=== PATIENT | male | born 1965 | race Caucasian/White ===

== ENCOUNTER 2016-06-02 10:06 | Inpatient (IN) | payer SELFPAY ==
[~2016-06-02] VITALS: Ht 170.2 cm; Wt 75.1 kg
[~2016-06-02 10:06] MED LIST: FLUO20CA19 PO; IBUP400T PO; TRAM300T9 PO; TRAM50TA2 PO
[2016-06-02 11:36] LABS: BLOOD UREA NITROGEN 19 mg/dL (7-18)
[2016-06-02 11:45] LABS: ACETAMINOPHEN < 3 mcg/mL (10-30)
[2016-06-02 11:50] LABS: DAU SCREEN DISCLAIMER
[2016-06-02] MEDS ORDERED: ONDANSETRON ODT 4 MG PO PRN (14:00)
[2016-06-02] MEDS ORDERED: ZIPRASIDONE 20MG CAPSULE PO PRN (14:00)
[2016-06-02] MEDS ORDERED: ZIPRASIDONE 20 MG INJ IM PRN (14:00)
[2016-06-03 23:20] VITALS: BP 117/69
[2016-06-04 03:18] VITALS: BP 113/76
[2016-06-04 07:25] VITALS: BP 125/85
[2016-06-04 13:25] VITALS: BP 139/85
[2016-06-04 18:20] VITALS: BP 117/78
[2016-06-05 00:40] VITALS: BP 108/71
[2016-06-05 08:24] VITALS: BP 112/76
[2016-06-05] MEDS: ACETAMINOPHEN 325 MG TABLET PO PRN ×3 (09:45→19:53)
[2016-06-05 13:05] VITALS: BP 118/83
[2016-06-05] MEDS ORDERED: POLYETHYLENE GLYCOL 17 GM PACKET PO PRN (16:00)
[2016-06-05] MEDS: DOCUSATE 100 MG CAPSULE PO PRN (16:06)
[2016-06-05 19:20] VITALS: BP 138/91
[2016-06-06 02:19] VITALS: BP 110/73
[2016-06-06 06:59] VITALS: BP 106/71
[2016-06-06 13:40] VITALS: BP 117/79
[2016-06-06] MEDS: ACETAMINOPHEN 325 MG TABLET PO PRN (15:49)
[2016-06-06 19:32] VITALS: BP 121/79
[2016-06-07 02:10] VITALS: BP 119/79
[2016-06-07 07:15] LABS: BLOOD UREA NITROGEN 18 mg/dL (7-18)
[2016-06-07 07:47] VITALS: BP 110/75
[2016-06-07] MEDS: ACETAMINOPHEN 325 MG TABLET PO PRN (09:16)
[2016-06-07 13:51] VITALS: BP 109/61
[2016-06-07] MEDS: ENOXAPARIN 40 MG/0.4 ML SQ SCH (15:18)
[2016-06-07 19:15] VITALS: BP 107/68
[2016-06-08 01:24] VITALS: BP 107/60
[2016-06-08 07:06] VITALS: BP 109/73
[2016-06-08] MEDS: ENOXAPARIN 40 MG/0.4 ML SQ SCH (15:30)
[2016-06-08 15:58] VITALS: BP 101/67
[2016-06-08 19:28] VITALS: BP 120/86
[2016-06-09 01:38] VITALS: BP 103/68
[2016-06-09 06:35] VITALS: BP 107/72
[2016-06-09] MEDS: ACETAMINOPHEN 325 MG TABLET PO PRN (08:41)
[2016-06-09 15:10] VITALS: BP 110/76
[2016-06-09] MEDS: ENOXAPARIN 40 MG/0.4 ML SQ SCH (15:32)
[2016-06-09 19:40] VITALS: BP 109/69
[2016-06-09] MEDS ORDERED: RISPERIDONE 1 MG TABLET PO SCH (21:00)
[2016-06-10 01:50] VITALS: BP 112/73
[2016-06-10 07:25] VITALS: BP 101/70
[2016-06-10 12:52] VITALS: BP 103/74
[2016-06-10] MEDS: ENOXAPARIN 40 MG/0.4 ML SQ SCH (15:35)
[2016-06-10] MEDS: RISPERIDONE 2 MG TABLET PO SCH (20:13)
[2016-06-10 20:26] VITALS: BP 101/66
[2016-06-11 03:52] VITALS: BP 108/68
[2016-06-11 05:35] LABS: BLOOD UREA NITROGEN 13 mg/dL (7-18)
[2016-06-11 07:56] VITALS: BP 106/73
[2016-06-11 13:01] VITALS: BP 99/66
[2016-06-11] MEDS: ENOXAPARIN 40 MG/0.4 ML SQ SCH (15:11)
[2016-06-11 19:10] VITALS: BP 104/71
[2016-06-11] MEDS: DOCUSATE 100 MG CAPSULE PO PRN (20:01)
[2016-06-11] MEDS: RISPERIDONE 2 MG TABLET PO SCH (20:01)
[2016-06-12 02:27] VITALS: BP 103/83
[2016-06-12 06:35] VITALS: BP 111/75
[2016-06-12 13:13] VITALS: BP 135/88
[2016-06-12] MEDS: ENOXAPARIN 40 MG/0.4 ML SQ SCH (15:40)
[2016-06-12 18:31] VITALS: BP 132/88
[2016-06-12] MEDS: RISPERIDONE 2 MG TABLET PO SCH (20:19)
[2016-06-13 01:38] VITALS: BP 108/76
[2016-06-13] MEDS: ACETAMINOPHEN 325 MG TABLET PO PRN (07:38)
[2016-06-13 08:04] VITALS: BP 103/64
[2016-06-13 12:01] VITALS: BP 115/78
[2016-06-13] MEDS: ENOXAPARIN 40 MG/0.4 ML SQ SCH (15:00)
[2016-06-13 19:53] VITALS: BP 115/79
[2016-06-13] MEDS: RISPERIDONE 2 MG TABLET PO SCH (20:04)
[2016-06-14 01:05] VITALS: BP 104/59
[2016-06-14 08:14] VITALS: BP 105/72
[2016-06-14 14:01] VITALS: BP 116/82
[2016-06-14] MEDS: ENOXAPARIN 40 MG/0.4 ML SQ SCH (15:35)
[2016-06-14] MEDS ORDERED: ZIPRASIDONE 20 MG INJ IM PRN (18:00)
[2016-06-14 18:18] VITALS: BP 113/76
[2016-06-14] MEDS: RISPERIDONE 1 MG TABLET PO SCH (20:53)
[2016-06-15 03:54] VITALS: BP 111/68
[2016-06-15 06:30] VITALS: BP 113/75
[2016-06-15 14:07] VITALS: BP 113/80
[2016-06-15] MEDS: ENOXAPARIN 40 MG/0.4 ML SQ SCH (15:27)
[2016-06-15 20:05] VITALS: BP 112/72
[2016-06-15] MEDS: RISPERIDONE 1 MG TABLET PO SCH (20:08)
[2016-06-16 05:41] VITALS: BP 100/66
[2016-06-16 06:33] VITALS: BP 103/71
[2016-06-16] MEDS ORDERED: LORazepam 1MG TABLET PO PRN (09:00)
[2016-06-16 14:13] VITALS: BP 108/70
[2016-06-16] MEDS: ENOXAPARIN 40 MG/0.4 ML SQ SCH (16:14)
[2016-06-16] MEDS: RISPERIDONE 1 MG TABLET PO SCH (19:22)
[2016-06-16 20:55] VITALS: BP 108/74
[2016-06-17 04:54] VITALS: BP 100/66
[2016-06-17 05:17] LABS: BLOOD UREA NITROGEN 16 mg/dL (7-18)
[2016-06-17 08:16] VITALS: BP 103/70
[2016-06-17 14:02] VITALS: BP 119/76
[2016-06-17] MEDS: ENOXAPARIN 40 MG/0.4 ML SQ SCH (15:54)
[2016-06-17 19:00] VITALS: BP 119/88
[2016-06-17] MEDS: RISPERIDONE 1 MG TABLET PO SCH (19:59)
[2016-06-18 04:04] VITALS: BP 101/68
[2016-06-18 07:32] VITALS: BP 104/70
[2016-06-18] MEDS: ACETAMINOPHEN 325 MG TABLET PO PRN (08:34)
[2016-06-18 13:05] VITALS: BP 109/68
[2016-06-18] MEDS: ENOXAPARIN 40 MG/0.4 ML SQ SCH (15:09)
[2016-06-18 18:48] VITALS: BP 119/76
[2016-06-18] MEDS: RISPERIDONE 1 MG TABLET PO SCH (20:24)
[2016-06-19 01:20] VITALS: BP 97/62
[2016-06-19 07:47] VITALS: BP 100/65
[2016-06-19] MEDS: ENOXAPARIN 40 MG/0.4 ML SQ SCH (15:00)
[2016-06-19 15:05] VITALS: BP 104/70
[2016-06-19] MEDS ORDERED: HYDR25TA11 PO (15:55)
[2016-06-19] MEDS ORDERED: RISP1TAB45 PO (15:55)
== END 2016-06-19 16:28 | disposition home or self-care (01) | DRG 885 ==
LOC: ED 10:45 → OBSVTOIN 13:09 → EDIP 13:09 → 3NE 06-03 22:56
PROVIDERS: ADMIT Internal Medicine; ATTEND Internal Medicine
DX: F20.9 Schizophrenia, unspecified (principal); E43 Unspecified severe protein-calorie malnutrition; G81.94 Hemiplegia, unspecified affecting left nondominant side; T14.91 Suicide attempt; F10.10 Alcohol abuse, uncomplicated; Z87.820 Personal history of traumatic brain injury; F14.10 Cocaine abuse, uncomplicated; F90.9 Attention-deficit hyperactivity disorder, unspecified type; F15.90 Other stimulant use, unspecified, uncomplicated; Z81.8 Family history of other mental and behavioral disorders; F32.9 Major depressive disorder, single episode, unspecified; Z59.0 Homelessness; Y92.410 Unspecified street and highway as the place of occurrence of the external cause; Y99.8 Other external cause status; Y93.89 Activity, other specified; Z68.25 Body mass index [BMI] 25.0-25.9, adult
CPT/HCPCS: 36415; 80048; 80307; 80329; 82040; 85025; J1650; J3486; G0480; Q0177

== ENCOUNTER 2016-07-27 07:32 | Inpatient (IN) | payer MEDICARE, MEDICAID ==
[~2016-07-27] VITALS: Ht 170.2 cm; Wt 87.0 kg
[~2016-07-27 07:32] MED LIST changes: +HYDR25TA11 PO; +RISP1TAB45 PO
[2016-07-27] MEDS ORDERED: SODIUM CHLORIDE 0.9% 1,000 ML IV ONE (07:47)
[2016-07-27] MEDS ORDERED: SODIUM CHLORIDE 0.9% 1,000ML IVBOLUS ONE (08:00)
[2016-07-27] MEDS ORDERED: AMPICILLIN/SULBACTAM 3 GM in SODIUM CHLORIDE 0.9% 100 ML IVPB ONE (08:00)
[2016-07-27] MEDS ORDERED: MORPHINE SULFATE 4 MG/ML, 1ML ONE (08:18)
[2016-07-27] MEDS ORDERED: ONDANSETRON 2MG/ML, 2ML ONE (08:21)
[2016-07-27 08:30] LABS: BLOOD UREA NITROGEN 8 mg/dL (7-18)
[2016-07-27] MEDS ORDERED: ONDANSETRON 2MG/ML, 2ML IVPush ONE (08:30)
[2016-07-27] MEDS ORDERED: MORPHINE SULFATE 4 MG/ML, 1ML IVPush PRN (08:30)
[2016-07-27] MEDS ORDERED: CEFTAROLINE 600 MG in SODIUM CHLORIDE 0.9% 100 ML IV ONE (08:30)
[2016-07-27] MEDS ORDERED: AZITHROMYCIN 250 MG TABLET ONE (09:48)
[2016-07-27] MEDS ORDERED: POTASSIUM CHLORIDE 20 MEQ TAB.ER.PRT PO ONE ×2 (10:00→15:00)
[2016-07-27] MEDS ORDERED: AZITHROMYCIN 500 MG TABLET PO ONE (10:00)
[2016-07-27] MEDS ORDERED: POTASSIUM CHLORIDE 20 MEQ TAB.ER.PRT ONE (10:16)
[2016-07-27] MEDS ORDERED: ENALAPRILAT 1.25 MG/ML, 2ML IVPush PRN (14:30)
[2016-07-27] MEDS ORDERED: ACETAMINOPHEN 325 MG TABLET PO PRN (14:30)
[2016-07-27] MEDS: ENOXAPARIN 40 MG/0.4 ML SQ SCH (14:30)
[2016-07-27] MEDS ORDERED: ONDANSETRON 2MG/ML, 2ML IVPush PRN (14:30)
[2016-07-27] MEDS ORDERED: POLYETHYLENE GLYCOL 17 GM PACKET PO PRN (14:30)
[2016-07-27] MEDS ORDERED: LABETALOL 5MG/ML, 20ML IVPush PRN (14:30)
[2016-07-27] MEDS ORDERED: BISACODYL 10 MG SUPP PR PRN (14:30)
[2016-07-27] MEDS ORDERED: VANCOMYCIN PMX 1GM/200ML 200 ML IV SCH (15:00)
[2016-07-27] MEDS ORDERED: PHARMACOKINETIC MONITORING MC PRN (15:00)
[2016-07-27] MEDS ORDERED: VANCOMYCIN PER PHARMACY MC PRN (15:00)
[2016-07-27] MEDS ORDERED: PHARMACOKINETIC CONSULTATION MC ONE (15:00)
[2016-07-27] MEDS ORDERED: CALAMINE LOTION 180ML TP PRN (15:00)
[2016-07-27] MEDS: SODIUM CHLORIDE 0.9% 1,000 ML IV SCH (16:11)
[2016-07-27] MEDS: PIPERACILLIN/TAZO 3.375 GM in SODIUM CHLORIDE 0.9% 50 ML IV SCH ×2 (16:12→21:27)
[2016-07-27] MEDS: LORazepam 2 MG/ML, 1ML IVPush PRN (16:36)
[2016-07-27] MEDS: OXYcodone/APAP 5/325MG TABLET PO PRN (16:36)
[2016-07-27] MEDS: VANCOMYCIN PMX 1GM/200ML 200 ML IV SCH (17:31)
[2016-07-27] MEDS ORDERED: MUPIROCIN OINT 2%, 22GM TP SCH (18:00)
[2016-07-27 20:25] VITALS: BP 116/82
[2016-07-27] MEDS: RISPERIDONE 1 MG TABLET PO SCH (21:27)
[2016-07-27] MEDS: SILVER SULF. CRM 1%, 400GM TP SCH (22:44)
[2016-07-28] MEDS: SODIUM CHLORIDE 0.9% 1,000 ML IV SCH ×2 (00:59→08:46)
[2016-07-28 02:00] VITALS: BP 123/79
[2016-07-28] MEDS: PIPERACILLIN/TAZO 3.375 GM in SODIUM CHLORIDE 0.9% 50 ML IV SCH ×3 (03:25→15:09)
[2016-07-28] MEDS: morphine SULFATE 10 MG/ML, 1ML IVPush PRN ×2 (03:38→15:09)
[2016-07-28] MEDS: VANCOMYCIN PMX 1GM/200ML 200 ML IV SCH ×2 (05:28→18:02)
[2016-07-28 05:36] LABS: ASPARTATE AMINO TRANSFERASE 24 U/L (15-37); BLOOD UREA NITROGEN 10 mg/dL (7-18)
[2016-07-28 07:46] VITALS: BP 137/87
[2016-07-28 08:18] VITALS: BP 100/70
[2016-07-28] MEDS: SENNA/DOCUSATE TABLET PO SCH (08:46)
[2016-07-28] MEDS: SILVER SULF. CRM 1%, 400GM TP SCH ×2 (08:47→21:49)
[2016-07-28] MEDS ORDERED: SILVER SULF. CRM 1%, 50GM TP SCH (09:00)
[2016-07-28 12:44] VITALS: BP 115/74
[2016-07-28] MEDS: ENOXAPARIN 40 MG/0.4 ML SQ SCH (13:58)
[2016-07-28 20:57] VITALS: BP 128/76
[2016-07-28] MEDS: RISPERIDONE 1 MG TABLET PO SCH (21:48)
[2016-07-28] MEDS: PIPERACILLIN/TAZO/PMX 3.375GM 50 ML IV SCH (21:48)
[2016-07-28] MEDS: IBUPROFEN 200 MG TABLET PO PRN (22:50)
[2016-07-29 02:25] VITALS: BP 118/64
[2016-07-29] MEDS: PIPERACILLIN/TAZO/PMX 3.375GM 50 ML IV SCH ×4 (03:50→21:45)
[2016-07-29] MEDS: morphine SULFATE 10 MG/ML, 1ML IVPush PRN ×2 (05:29→13:47)
[2016-07-29] MEDS: VANCOMYCIN PMX 1GM/200ML 200 ML IV SCH ×2 (05:29→16:59)
[2016-07-29 07:34] VITALS: BP 104/69
[2016-07-29] MEDS: SILVER SULF. CRM 1%, 400GM TP SCH ×3 (09:00→21:00)
[2016-07-29] MEDS: SENNA/DOCUSATE TABLET PO SCH (10:05)
[2016-07-29 14:49] VITALS: BP 113/74
[2016-07-29] MEDS: ENOXAPARIN 40 MG/0.4 ML SQ SCH (15:00)
[2016-07-29] MEDS: OXYcodone/APAP 5/325MG TABLET PO PRN (15:47)
[2016-07-29 20:33] VITALS: BP 129/75
[2016-07-29] MEDS: IBUPROFEN 200 MG TABLET PO PRN (21:45)
[2016-07-29] MEDS: RISPERIDONE 1 MG TABLET PO SCH (21:46)
[2016-07-30 01:53] VITALS: BP 131/70
[2016-07-30] MEDS: PIPERACILLIN/TAZO/PMX 3.375GM 50 ML IV SCH ×4 (03:50→21:33)
[2016-07-30] MEDS: VANCOMYCIN PMX 1GM/200ML 200 ML IV SCH ×2 (06:05→17:27)
[2016-07-30] MEDS: morphine SULFATE 10 MG/ML, 1ML IVPush PRN ×2 (06:06→14:56)
[2016-07-30] MEDS: SILVER SULF. CRM 1%, 400GM TP SCH ×2 (06:41→21:00)
[2016-07-30 06:46] VITALS: BP 102/59
[2016-07-30] MEDS: SENNA/DOCUSATE TABLET PO SCH (09:18)
[2016-07-30 13:52] VITALS: BP 112/70
[2016-07-30] MEDS: ENOXAPARIN 40 MG/0.4 ML SQ SCH (14:55)
[2016-07-30] MEDS: OxyconTIN ER 10 MG TAB.ER PO SCH (17:26)
[2016-07-30 18:37] VITALS: BP 117/76
[2016-07-30] MEDS: RISPERIDONE 1 MG TABLET PO SCH (21:33)
[2016-07-30] MEDS: IBUPROFEN 200 MG TABLET PO PRN (21:33)
[2016-07-31 02:00] VITALS: BP 91/53
[2016-07-31] MEDS: PIPERACILLIN/TAZO/PMX 3.375GM 50 ML IV SCH ×4 (03:23→22:06)
[2016-07-31] MEDS: morphine SULFATE 10 MG/ML, 1ML IVPush PRN (04:14)
[2016-07-31] MEDS: SILVER SULF. CRM 1%, 400GM TP SCH (04:15)
[2016-07-31 05:33] LABS: BLOOD UREA NITROGEN 8 mg/dL (7-18)
[2016-07-31] MEDS: OxyconTIN ER 10 MG TAB.ER PO SCH ×2 (05:33→17:04)
[2016-07-31] MEDS: VANCOMYCIN PMX 1GM/200ML 200 ML IV SCH ×2 (05:33→17:05)
[2016-07-31 07:44] VITALS: BP 94/58
[2016-07-31] MEDS: SENNA/DOCUSATE TABLET PO SCH (09:45)
[2016-07-31] MEDS: OXYcodone/APAP 5/325MG TABLET PO PRN (09:45)
[2016-07-31 12:14] VITALS: BP 118/81
[2016-07-31] MEDS: ENOXAPARIN 40 MG/0.4 ML SQ SCH (15:03)
[2016-07-31 19:13] VITALS: BP 105/65
[2016-07-31] MEDS: RISPERIDONE 1 MG TABLET PO SCH (22:05)
[2016-08-01 02:35] VITALS: BP 114/72
[2016-08-01] MEDS: PIPERACILLIN/TAZO/PMX 3.375GM 50 ML IV SCH ×4 (02:52→20:54)
[2016-08-01] MEDS: OxyconTIN ER 10 MG TAB.ER PO SCH ×2 (04:42→17:00)
[2016-08-01] MEDS: VANCOMYCIN PMX 1GM/200ML 200 ML IV SCH ×2 (05:42→18:31)
[2016-08-01 07:58] VITALS: BP 110/64
[2016-08-01] MEDS: SENNA/DOCUSATE TABLET PO SCH (09:01)
[2016-08-01 12:46] VITALS: BP 106/67
[2016-08-01] MEDS: ENOXAPARIN 40 MG/0.4 ML SQ SCH (15:20)
[2016-08-01] MEDS: SILVER SULF. CRM 1%, 400GM TP SCH ×3 (15:21→22:39)
[2016-08-01] MEDS: IBUPROFEN 200 MG TABLET PO PRN (18:33)
[2016-08-01] MEDS: OXYcodone/APAP 5/325MG TABLET PO PRN (18:33)
[2016-08-01 19:10] VITALS: BP 109/67
[2016-08-01] MEDS: RISPERIDONE 1 MG TABLET PO SCH (20:53)
[2016-08-01] MEDS: morphine SULFATE 10 MG/ML, 1ML IVPush PRN (22:37)
[2016-08-02 02:03] VITALS: BP 105/60
[2016-08-02] MEDS: PIPERACILLIN/TAZO/PMX 3.375GM 50 ML IV SCH ×4 (03:11→20:56)
[2016-08-02] MEDS: VANCOMYCIN PMX 1GM/200ML 200 ML IV SCH ×2 (05:29→17:57)
[2016-08-02 08:37] VITALS: BP 100/65
[2016-08-02] MEDS: SENNA/DOCUSATE TABLET PO SCH (09:30)
[2016-08-02] MEDS: morphine SULFATE 10 MG/ML, 1ML IVPush PRN ×3 (09:30→21:05)
[2016-08-02] MEDS: SILVER SULF. CRM 1%, 400GM TP SCH ×2 (09:33→20:57)
[2016-08-02] MEDS: OXYcodone/APAP 5/325MG TABLET PO PRN (12:32)
[2016-08-02 13:48] VITALS: BP 117/66
[2016-08-02] MEDS: ENOXAPARIN 40 MG/0.4 ML SQ SCH (15:40)
[2016-08-02 18:45] VITALS: BP 122/68
[2016-08-02] MEDS: RISPERIDONE 1 MG TABLET PO SCH (20:56)
[2016-08-03 00:49] VITALS: BP 102/63
[2016-08-03] MEDS: PIPERACILLIN/TAZO/PMX 3.375GM 50 ML IV SCH ×2 (03:01→10:19)
[2016-08-03] MEDS: VANCOMYCIN PMX 1GM/200ML 200 ML IV SCH (05:34)
[2016-08-03 09:11] VITALS: BP 111/70
[2016-08-03] MEDS: SILVER SULF. CRM 1%, 400GM TP SCH (10:19)
[2016-08-03] MEDS: morphine SULFATE 10 MG/ML, 1ML IVPush PRN ×3 (10:19→20:06)
[2016-08-03] MEDS: SENNA/DOCUSATE TABLET PO SCH (10:25)
[2016-08-03] MEDS: DOXYCYCLINE 100MG TABLET PO SCH ×2 (13:06→21:18)
[2016-08-03 13:12] VITALS: BP 118/76
[2016-08-03] MEDS: AMPICILLIN/SULBACTAM 3 GM in SODIUM CHLORIDE 0.9% 100 ML IV SCH ×2 (15:56→22:22)
[2016-08-03] MEDS: ENOXAPARIN 40 MG/0.4 ML SQ SCH (15:57)
[2016-08-03 18:29] VITALS: BP 110/70
[2016-08-03] MEDS: OXYcodone/APAP 5/325MG TABLET PO PRN (18:41)
[2016-08-03] MEDS: RISPERIDONE 1 MG TABLET PO SCH (21:18)
[2016-08-04 02:41] VITALS: BP 108/69
[2016-08-04] MEDS: AMPICILLIN/SULBACTAM 3 GM in SODIUM CHLORIDE 0.9% 100 ML IV SCH ×4 (04:16→22:51)
[2016-08-04 06:01] LABS: BLOOD UREA NITROGEN 13 mg/dL (7-18)
[2016-08-04] MEDS: OXYcodone/APAP 5/325MG TABLET PO PRN ×4 (06:10→21:15)
[2016-08-04 07:58] VITALS: BP 101/65
[2016-08-04] MEDS: DOXYCYCLINE 100MG TABLET PO SCH ×2 (10:09→21:15)
[2016-08-04] MEDS: SENNA/DOCUSATE TABLET PO SCH (10:09)
[2016-08-04 13:59] VITALS: BP 105/60
[2016-08-04] MEDS: ENOXAPARIN 40 MG/0.4 ML SQ SCH (16:18)
[2016-08-04 18:33] VITALS: BP 118/81
[2016-08-04] MEDS: RISPERIDONE 1 MG TABLET PO SCH (21:15)
[2016-08-05 01:07] VITALS: BP 113/67
[2016-08-05] MEDS: OXYcodone/APAP 5/325MG TABLET PO PRN ×3 (04:42→20:29)
[2016-08-05] MEDS: AMPICILLIN/SULBACTAM 3 GM in SODIUM CHLORIDE 0.9% 100 ML IV SCH ×4 (04:42→22:51)
[2016-08-05 07:31] VITALS: BP 94/55
[2016-08-05] MEDS: SENNA/DOCUSATE TABLET PO SCH (09:00)
[2016-08-05] MEDS: DOXYCYCLINE 100MG TABLET PO SCH ×2 (09:58→20:28)
[2016-08-05 13:57] VITALS: BP 119/73
[2016-08-05] MEDS: ENOXAPARIN 40 MG/0.4 ML SQ SCH (16:27)
[2016-08-05 19:37] VITALS: BP 120/77
[2016-08-05] MEDS: RISPERIDONE 1 MG TABLET PO SCH (20:28)
[2016-08-06 00:53] VITALS: BP 101/63
[2016-08-06] MEDS: AMPICILLIN/SULBACTAM 3 GM in SODIUM CHLORIDE 0.9% 100 ML IV SCH ×4 (04:10→23:05)
[2016-08-06 05:32] LABS: BLOOD UREA NITROGEN 14 mg/dL (7-18)
[2016-08-06 08:30] VITALS: BP 102/64
[2016-08-06] MEDS: SENNA/DOCUSATE TABLET PO SCH (09:00)
[2016-08-06] MEDS: OXYcodone/APAP 5/325MG TABLET PO PRN ×2 (10:17→21:47)
[2016-08-06] MEDS: DOXYCYCLINE 100MG TABLET PO SCH ×2 (10:17→21:39)
[2016-08-06 14:30] VITALS: BP 107/68
[2016-08-06] MEDS: ENOXAPARIN 40 MG/0.4 ML SQ SCH (14:30)
[2016-08-06 20:03] VITALS: BP 106/69
[2016-08-06] MEDS: RISPERIDONE 1 MG TABLET PO SCH (21:39)
[2016-08-07 03:24] VITALS: BP 97/57
[2016-08-07] MEDS: AMPICILLIN/SULBACTAM 3 GM in SODIUM CHLORIDE 0.9% 100 ML IV SCH ×2 (05:05→09:58)
[2016-08-07 07:29] VITALS: BP 110/75
[2016-08-07] MEDS: SENNA/DOCUSATE TABLET PO SCH (09:00)
[2016-08-07] MEDS: OXYcodone/APAP 5/325MG TABLET PO PRN (09:29)
[2016-08-07] MEDS: DOXYCYCLINE 100MG TABLET PO SCH ×2 (09:29→20:59)
[2016-08-07 13:50] VITALS: BP 115/74
[2016-08-07] MEDS: ENOXAPARIN 40 MG/0.4 ML SQ SCH (14:30)
[2016-08-07] MEDS: AMOXICILLIN/CLAV 875-125MG TABLET PO SCH ×2 (14:30→20:59)
[2016-08-07 20:28] VITALS: BP 109/71
[2016-08-07] MEDS: RISPERIDONE 1 MG TABLET PO SCH (20:59)
[2016-08-08 01:47] VITALS: BP 100/69
[2016-08-08 05:21] LABS: BLOOD UREA NITROGEN 15 mg/dL (7-18)
[2016-08-08 07:42] VITALS: BP 112/78
[2016-08-08] MEDS: DOXYCYCLINE 100MG TABLET PO SCH ×2 (09:22→20:50)
[2016-08-08] MEDS: SENNA/DOCUSATE TABLET PO SCH (09:22)
[2016-08-08] MEDS: AMOXICILLIN/CLAV 875-125MG TABLET PO SCH ×2 (09:22→20:50)
[2016-08-08 14:05] VITALS: BP 132/95
[2016-08-08] MEDS: ENOXAPARIN 40 MG/0.4 ML SQ SCH (15:28)
[2016-08-08 19:12] VITALS: BP 119/75
[2016-08-08] MEDS: RISPERIDONE 1 MG TABLET PO SCH (20:50)
[2016-08-09 01:55] VITALS: BP 114/79
[2016-08-09 07:14] VITALS: BP 103/68
[2016-08-09] MEDS: SENNA/DOCUSATE TABLET PO SCH (08:36)
[2016-08-09] MEDS: AMOXICILLIN/CLAV 875-125MG TABLET PO SCH ×2 (08:36→20:28)
[2016-08-09] MEDS: DOXYCYCLINE 100MG TABLET PO SCH ×2 (08:36→20:28)
[2016-08-09] MEDS: ENOXAPARIN 40 MG/0.4 ML SQ SCH (14:30)
[2016-08-09] MEDS: LORazepam 2 MG/ML, 1ML IVPush PRN ×3 (14:59→22:39)
[2016-08-09 15:03] VITALS: BP 105/88
[2016-08-09] MEDS: IBUPROFEN 200 MG TABLET PO PRN (15:08)
[2016-08-09 19:12] VITALS: BP 112/72
[2016-08-09] MEDS: OXYcodone/APAP 5/325MG TABLET PO PRN (19:50)
[2016-08-09] MEDS: RISPERIDONE 1 MG TABLET PO SCH (20:28)
[2016-08-10 01:55] VITALS: BP 99/66
[2016-08-10 07:40] VITALS: BP 112/74
[2016-08-10] MEDS: SENNA/DOCUSATE TABLET PO SCH (09:00)
[2016-08-10] MEDS: AMOXICILLIN/CLAV 875-125MG TABLET PO SCH ×2 (09:40→21:32)
[2016-08-10] MEDS: DOXYCYCLINE 100MG TABLET PO SCH ×2 (09:41→21:31)
[2016-08-10] MEDS ORDERED: IBUPROFEN 200 MG TABLET PO PRN (12:30)
[2016-08-10] MEDS: IBUPROFEN 200 MG TABLET PO PRN (12:50)
[2016-08-10 13:38] VITALS: BP 100/67
[2016-08-10] MEDS: ENOXAPARIN 40 MG/0.4 ML SQ SCH (15:29)
[2016-08-10] MEDS: LORazepam 2 MG/ML, 1ML IVPush PRN (18:16)
[2016-08-10 19:32] VITALS: BP 101/66
[2016-08-10] MEDS: RISPERIDONE 1 MG TABLET PO SCH (21:32)
[2016-08-11] VITALS (8 sets, daily range): BP systolic 99–125; BP diastolic 64–85
[2016-08-11] MEDS: DOXYCYCLINE 100MG TABLET PO SCH ×2 (08:55→20:04)
[2016-08-11] MEDS: SENNA/DOCUSATE TABLET PO SCH (08:55)
[2016-08-11] MEDS: AMOXICILLIN/CLAV 875-125MG TABLET PO SCH ×2 (08:55→20:04)
[2016-08-11] MEDS: ENOXAPARIN 40 MG/0.4 ML SQ SCH (13:45)
[2016-08-11] MEDS: IBUPROFEN 200 MG TABLET PO PRN (13:48)
[2016-08-11] MEDS: RISPERIDONE 1 MG TABLET PO SCH (20:04)
[2016-08-11] MEDS: morphine SULFATE 10 MG/ML, 1ML IVPush PRN (20:47)
[2016-08-12 00:05] VITALS: BP 115/80
[2016-08-12 01:05] VITALS: BP 112/76
[2016-08-12 02:24] VITALS: BP 105/70
[2016-08-12 05:28] LABS: BLOOD UREA NITROGEN 17 mg/dL (7-18)
[2016-08-12 07:19] VITALS: BP 94/58
[2016-08-12] MEDS: SENNA/DOCUSATE TABLET PO SCH (08:51)
[2016-08-12] MEDS: AMOXICILLIN/CLAV 875-125MG TABLET PO SCH ×2 (08:51→20:28)
[2016-08-12] MEDS: DOXYCYCLINE 100MG TABLET PO SCH ×2 (08:51→20:28)
[2016-08-12] MEDS: IBUPROFEN 200 MG TABLET PO PRN ×2 (10:02→20:28)
[2016-08-12 12:38] VITALS: BP 107/70
[2016-08-12] MEDS: ENOXAPARIN 40 MG/0.4 ML SQ SCH (16:03)
[2016-08-12 19:08] VITALS: BP 114/75
[2016-08-12] MEDS: RISPERIDONE 1 MG TABLET PO SCH (20:28)
[2016-08-13 05:40] VITALS: BP 116/75
[2016-08-13 07:37] VITALS: BP 122/80
[2016-08-13] MEDS: AMOXICILLIN/CLAV 875-125MG TABLET PO SCH ×2 (08:50→21:00)
[2016-08-13] MEDS: SENNA/DOCUSATE TABLET PO SCH (08:50)
[2016-08-13] MEDS: DOXYCYCLINE 100MG TABLET PO SCH ×2 (08:50→21:00)
[2016-08-13] MEDS: OXYcodone/APAP 5/325MG TABLET PO PRN (10:41)
[2016-08-13 13:08] VITALS: BP 112/76
[2016-08-13] MEDS: ENOXAPARIN 40 MG/0.4 ML SQ SCH ×2 (14:30→16:00)
[2016-08-13 19:17] VITALS: BP 113/77
[2016-08-13] MEDS: IBUPROFEN 200 MG TABLET PO PRN (22:05)
[2016-08-13] MEDS: RISPERIDONE 1 MG TABLET PO SCH (22:05)
[2016-08-14 01:09] VITALS: BP 109/75
[2016-08-14] MEDS ORDERED: SENNA/DOCUSATE TABLET PO SCH (09:00)
[2016-08-14] MEDS: ENOXAPARIN 40 MG/0.4 ML SQ SCH (14:52)
[2016-08-14 15:02] VITALS: BP 109/73
== END 2016-08-14 16:14 | disposition left against medical advice (07) | DRG 871 ==
LOC: ED 09:26 → 3NE 10:55
PROVIDERS: ADMIT Emergency Medicine; ATTEND Emergency Medicine
DX: A41.9 Sepsis, unspecified organism (principal); G93.40 Encephalopathy, unspecified; E43 Unspecified severe protein-calorie malnutrition; E44.0 Moderate protein-calorie malnutrition; L03.115 Cellulitis of right lower limb; L03.116 Cellulitis of left lower limb; G81.94 Hemiplegia, unspecified affecting left nondominant side; R45.851 Suicidal ideations; D64.9 Anemia, unspecified; E87.6 Hypokalemia; F10.229 Alcohol dependence with intoxication, unspecified; F29 Unspecified psychosis not due to a substance or known physiological condition; F39 Unspecified mood [affective] disorder; G89.29 Other chronic pain; L55.1 Sunburn of second degree; M17.12 Unilateral primary osteoarthritis, left knee; Z59.0 Homelessness; Z87.820 Personal history of traumatic brain injury; Z99.3 Dependence on wheelchair; Z68.30 Body mass index [BMI] 30.0-30.9, adult; F14.10 Cocaine abuse, uncomplicated
CPT/HCPCS: 36415; 70450; 80048; 80053; 80061; 80202; 81001; 82040; 83036; 83605; 83735; 84145; 84439; 84443; 85025; 87040; 87086; 87491; 87591; 96365; 96367; 96375; J0295; J0712; J1650; J2405; J2543; J3370; J2060; J2270; J7030; Q0177

== ENCOUNTER 2016-08-14 23:43 | Emergency (ER) | payer MEDICAID, MEDICARE ==
[~2016-08-14] VITALS: Ht 177.8 cm; Wt 65.0 kg
[2016-08-14 23:57] VITALS: BP 120/80
[2016-08-15] MEDS ORDERED: IBUPROFEN 200 MG TABLET PO ONE
[2016-08-15] MEDS ORDERED: IBUPROFEN 200 MG TABLET ONE (00:12)
== END 2016-08-15 01:18 | disposition home or self-care (01) ==
LOC: ED 23:59
DX: F10.129 Alcohol abuse with intoxication, unspecified (principal)
CPT/HCPCS: 99283

== ENCOUNTER 2016-08-29 22:27 | Emergency (ER) | payer MEDICAID ==
[~2016-08-29] VITALS: Ht 170.2 cm; Wt 110.0 kg
[2016-08-29] MEDS ORDERED: IBUP200C8 PO (22:42)
[2016-08-30 01:54] VITALS: BP 98/68
== END 2016-08-30 03:34 | disposition home or self-care (01) ==
LOC: ED 23:37
DX: F10.120 Alcohol abuse with intoxication, uncomplicated (principal); F19.10 Other psychoactive substance abuse, uncomplicated
CPT/HCPCS: 99283

== ENCOUNTER 2016-09-28 18:13 | Emergency (ER) | payer MEDICARE, MEDICAID ==
[~2016-09-28] VITALS: Ht 170.2 cm; Wt 100.0 kg
[~2016-09-28 18:13] MED LIST changes: +IBUP-1221 PO; +IBUP200C8 PO; -IBUP400T PO
[2016-09-28] MEDS ORDERED: THIAMINE 100 MG/ML, 2ML IM ONE (20:00)
[2016-09-28] MEDS ORDERED: THIAMINE 100 MG/ML, 2ML ONE (21:06)
[2016-09-29] MEDS ORDERED: SODIUM CHLORIDE 0.9% 1,000ML IVBOLUS ONE
[2016-09-29 02:45] VITALS: BP 110/74
== END 2016-09-29 02:47 | disposition home or self-care (01) ==
LOC: ED 18:52
DX: F10.229 Alcohol dependence with intoxication, unspecified (principal); F14.10 Cocaine abuse, uncomplicated; F15.10 Other stimulant abuse, uncomplicated; S00.01XA Abrasion of scalp, initial encounter; W05.0XXA Fall from non-moving wheelchair, initial encounter; Y93.89 Activity, other specified; Y99.8 Other external cause status; Y92.89 Other specified places as the place of occurrence of the external cause
CPT/HCPCS: 70450; 96372; 99284; J3411

== ENCOUNTER 2016-10-02 16:23 | Emergency (ER) | payer MEDICARE, MEDICAID ==
[~2016-10-02] VITALS: Ht 177.8 cm; Wt 79.4 kg
[2016-10-02 16:44] LABS: HEMATOCRIT 48.8 % (39.2-51.8); HEMOGLOBIN 16.2 g/dL (13.7-18.0); WHITE BLOOD COUNT 8.5 x10^3/uL (3.4-10)
[2016-10-02 16:53] LABS: BLOOD UREA NITROGEN 9 mg/dL (7-18)
[2016-10-02 16:54] LABS: ACETAMINOPHEN < 2 mcg/mL (10-30)
[2016-10-02 17:00] VITALS: BP 103/56
== END 2016-10-02 19:49 | disposition home or self-care (01) ==
LOC: ED 18:37
DX: F10.220 Alcohol dependence with intoxication, uncomplicated (principal)
CPT/HCPCS: 36415; 80048; 80307; 80329; 82040; 85025; 99284; G0480

== ENCOUNTER 2016-10-09 10:34 | Emergency (ER) | payer MEDICARE, MEDICAID ==
[2016-10-09 11:32] LABS: HEMATOCRIT 51.3 % (39.2-51.8); HEMOGLOBIN 16.9 g/dL (13.7-18.0); WHITE BLOOD COUNT 7.1 x10^3/uL (3.4-10)
[2016-10-09 11:45] LABS: ASPARTATE AMINO TRANSFERASE 17 U/L (15-37); BLOOD UREA NITROGEN 7 mg/dL (7-18)
[2016-10-09 14:48] VITALS: BP 119/83
== END 2016-10-09 17:54 | disposition home or self-care (01) ==
LOC: ED 11:12
DX: L03.115 Cellulitis of right lower limb (principal); F10.229 Alcohol dependence with intoxication, unspecified; Y90.9 Presence of alcohol in blood, level not specified; Z59.0 Homelessness
CPT/HCPCS: 36415; 71010; 80053; 80307; 83605; 85025; 85610; 87040; 93005; 99285

== ENCOUNTER 2016-10-09 18:38 | Emergency (ER) | payer MEDICARE, MEDICAID ==
[~2016-10-09] VITALS: Ht 170.2 cm; Wt 68.0 kg
[2016-10-09 19:27] LABS: DAU SCREEN DISCLAIMER
[2016-10-09 22:30] VITALS: BP 118/80
[2016-10-09] MEDS ORDERED: IBUPROFEN 200 MG TABLET ONE (23:27)
[2016-10-09] MEDS ORDERED: IBUPROFEN 200 MG TABLET PO ONE (23:30)
== END 2016-10-09 23:44 | disposition home or self-care (01) ==
LOC: ED 18:45
DX: R45.851 Suicidal ideations (principal); F15.129 Other stimulant abuse with intoxication, unspecified; F12.129 Cannabis abuse with intoxication, unspecified
CPT/HCPCS: 36415; 80307; 99284

== ENCOUNTER 2016-10-11 14:40 | Emergency (ER) | payer MEDICARE, MEDICAID ==
[~2016-10-11] VITALS: Ht 170.2 cm; Wt 95.0 kg
[2016-10-11 14:47] VITALS: BP 124/90
[2016-10-11] MEDS ORDERED: IBUPROFEN 200 MG TABLET PO ONE (15:00)
[2016-10-11] MEDS ORDERED: CLINDAMYCIN 150 MG CAPSULE PO ONE (15:00)
[2016-10-11] MEDS ORDERED: IBUPROFEN 200 MG TABLET ONE (15:06)
[2016-10-11] MEDS ORDERED: CLINDAMYCIN 300 MG CAPSULE ONE (15:06)
[2016-10-11 15:17] LABS: HEMATOCRIT 50.2 % (39.2-51.8); HEMOGLOBIN 16.8 g/dL (13.7-18.0); WHITE BLOOD COUNT 8.3 x10^3/uL (3.4-10)
[2016-10-11 15:28] LABS: BLOOD UREA NITROGEN 9 mg/dL (7-18)
== END 2016-10-11 16:56 | disposition home or self-care (01) ==
LOC: ED 16:50
DX: L03.116 Cellulitis of left lower limb (principal); I10 Essential (primary) hypertension
CPT/HCPCS: 36415; 80048; 82040; 85025; 99285

== ENCOUNTER 2016-10-11 17:59 | Emergency (ER) | payer MEDICARE, MEDICAID ==
[~2016-10-11] VITALS: Ht 167.6 cm; Wt 75.0 kg
[2016-10-11 18:15] VITALS: BP 102/78
== END 2016-10-11 19:24 | disposition home or self-care (01) ==
LOC: ED 19:18
DX: R10.10 Upper abdominal pain, unspecified (principal); F12.10 Cannabis abuse, uncomplicated; F15.10 Other stimulant abuse, uncomplicated; Z72.89 Other problems related to lifestyle; I10 Essential (primary) hypertension
CPT/HCPCS: 99283

== ENCOUNTER 2016-10-12 09:26 | Emergency (ER) | payer MEDICARE, MEDICAID ==
[~2016-10-12] VITALS: Ht 167.6 cm; Wt 75.0 kg
[2016-10-12 12:07] VITALS: BP 98/70
== END 2016-10-12 13:39 | disposition home or self-care (01) ==
LOC: ED 09:30
DX: F10.229 Alcohol dependence with intoxication, unspecified (principal); I10 Essential (primary) hypertension
CPT/HCPCS: 99283

== ENCOUNTER 2016-10-12 14:20 | Emergency (ER) | payer MEDICARE, MEDICAID ==
[~2016-10-12] VITALS: Ht 170.2 cm; Wt 87.0 kg
[2016-10-12 14:56] VITALS: BP 124/70
== END 2016-10-12 18:09 | disposition home or self-care (01) ==
LOC: ED 14:40
DX: F10.120 Alcohol abuse with intoxication, uncomplicated (principal); I10 Essential (primary) hypertension; F17.200 Nicotine dependence, unspecified, uncomplicated
CPT/HCPCS: 99283

== ENCOUNTER 2016-10-15 16:28 | Emergency (ER) | payer MEDICARE, MEDICAID ==
[~2016-10-15] VITALS: Ht 175.3 cm; Wt 70.0 kg
[2016-10-15] MEDS ORDERED: SODIUM CHLORIDE 0.9% 1,000ML IVBOLUS ONE (17:00)
[2016-10-15] MEDS ORDERED: PLEASE ENTER HEIGHT AND WEIGHT MC SCH (17:00)
[2016-10-15] MEDS ORDERED: CLINDAMYCIN PMX 900MG/50ML 50 ML IV ONE (17:00)
[2016-10-15] MEDS ORDERED: PLEASE ENTER ALLERGIES MC SCH ×2 (17:00)
[2016-10-15] MEDS ORDERED: CLINDAMYCIN PMX 900MG/50ML 50 ML ONE (17:09)
[2016-10-15 17:18] LABS: HEMATOCRIT 52.7 % (39.2-51.8); HEMOGLOBIN 17.7 g/dL (13.7-18.0); WHITE BLOOD COUNT 8.9 x10^3/uL (3.4-10)
[2016-10-15 17:21] VITALS: BP 95/73
[2016-10-15 17:23] LABS: BLOOD UREA NITROGEN 7 mg/dL (7-18)
== END 2016-10-15 19:06 | disposition home or self-care (01) ==
LOC: ED 17:14
DX: L03.115 Cellulitis of right lower limb (principal); F10.220 Alcohol dependence with intoxication, uncomplicated; I10 Essential (primary) hypertension
CPT/HCPCS: 36415; 80048; 85025; 87040; 96365; 99284; J7030

== ENCOUNTER 2016-10-17 08:12 | Emergency (ER) | payer MEDICARE, MEDICAID ==
[~2016-10-17] VITALS: Ht 177.8 cm; Wt 100.0 kg
[2016-10-17 11:28] VITALS: BP 138/90
== END 2016-10-17 15:11 | disposition home or self-care (01) ==
LOC: ED 12:12
DX: F32.0 Major depressive disorder, single episode, mild (principal); F10.10 Alcohol abuse, uncomplicated; I10 Essential (primary) hypertension; F17.200 Nicotine dependence, unspecified, uncomplicated
CPT/HCPCS: 36415; 80307; 99284

== ENCOUNTER 2016-11-13 21:00 | Emergency (ER) | payer MEDICARE, MEDICAID ==
[~2016-11-13] VITALS: Ht 167.6 cm; Wt 80.0 kg
[2016-11-14] MEDS ORDERED: BACITRACIN ZINC OINT 500U/GM, 0.9 GM ONE (00:06)
[2016-11-14 01:10] VITALS: BP 105/76
== END 2016-11-14 01:13 | disposition home or self-care (01) ==
LOC: ED 21:15
DX: F10.220 Alcohol dependence with intoxication, uncomplicated (principal); F19.20 Other psychoactive substance dependence, uncomplicated; I10 Essential (primary) hypertension; Z72.9 Problem related to lifestyle, unspecified
CPT/HCPCS: 99283

== ENCOUNTER 2016-11-17 21:55 | Emergency (ER) | payer MEDICARE, MEDICAID ==
[~2016-11-17] VITALS: Ht 182.9 cm; Wt 98.6 kg
[2016-11-18 05:59] VITALS: BP 113/74
== END 2016-11-18 06:01 | disposition home or self-care (01) ==
LOC: ED 22:05
DX: S00.03XA Contusion of scalp, initial encounter (principal); F10.120 Alcohol abuse with intoxication, uncomplicated; I10 Essential (primary) hypertension; X58.XXXA Exposure to other specified factors, initial encounter; Y93.89 Activity, other specified; Y92.89 Other specified places as the place of occurrence of the external cause; Y99.8 Other external cause status
CPT/HCPCS: 36415; 70450; 80307; 99285; G0479

== ENCOUNTER 2016-11-18 07:08 | Observation (INO) | payer MEDICARE, MEDICAID ==
[~2016-11-18] VITALS: Ht 170.2 cm; Wt 89.0 kg
[2016-11-18 07:44] LABS: HEMATOCRIT 51.3 % (39.2-51.8); HEMOGLOBIN 17.2 g/dL (13.7-18.0); WHITE BLOOD COUNT 7.4 x10^3/uL (3.4-10)
[2016-11-18 07:47] LABS: DAU SCREEN DISCLAIMER
[2016-11-18 07:54] LABS: BLOOD UREA NITROGEN 11 mg/dL (7-18)
[2016-11-18 07:55] LABS: ACETAMINOPHEN < 2 mcg/mL (10-30)
[2016-11-18] MEDS: FOLIC ACID 1 MG TABLET PO SCH (12:00)
[2016-11-18] MEDS: THIAMINE 100MG TABLET PO SCH (12:00)
[2016-11-18] MEDS ORDERED: POLYETHYLENE GLYCOL 17 GM PACKET PO PRN (12:00)
[2016-11-18] MEDS: ENOXAPARIN 40 MG/0.4 ML SQ SCH (12:00)
[2016-11-18] MEDS ORDERED: BISACODYL 10 MG SUPP PR PRN (12:00)
[2016-11-18] MEDS ORDERED: TRAZODONE 50MG TABLET PO PRN (12:00)
[2016-11-18] MEDS ORDERED: DOCUSATE 100 MG CAPSULE PO PRN (12:00)
[2016-11-18] MEDS ORDERED: ACETAMINOPHEN 325 MG TABLET PO PRN (12:00)
[2016-11-18] MEDS ORDERED: THIAMINE 100MG TABLET ONE (13:03)
[2016-11-18] MEDS ORDERED: ENOXAPARIN 40 MG/0.4 ML ONE (13:04)
[2016-11-18] MEDS ORDERED: LORazepam 1MG TABLET ONE (20:19)
[2016-11-18] MEDS: LORazepam 1MG TABLET PO PRN (20:23)
[2016-11-19 05:46] LABS: HEMOGLOBIN 15.3 g/dL (13.7-18.0); WHITE BLOOD COUNT 6.7 x10^3/uL (3.4-10)
[2016-11-19 06:08] LABS: BLOOD UREA NITROGEN 18 mg/dL (7-18)
[2016-11-19] MEDS: FOLIC ACID 1 MG TABLET PO SCH (09:00)
[2016-11-19] MEDS: THIAMINE 100MG TABLET PO SCH (09:00)
[2016-11-19] MEDS ORDERED: LORazepam 1MG TABLET ONE ×2 (09:08→16:12)
[2016-11-19] MEDS ORDERED: ACETAMINOPHEN 325 MG TABLET ONE (09:08)
[2016-11-19] MEDS: LORazepam 1MG TABLET PO PRN ×2 (09:09→16:14)
[2016-11-19] MEDS: ENOXAPARIN 40 MG/0.4 ML SQ SCH (12:00)
[2016-11-19] MEDS ORDERED: DOCUSATE 100 MG CAPSULE PO PRN (21:30)
[2016-11-19] MEDS ORDERED: BISACODYL 10 MG SUPP PR PRN (21:30)
[2016-11-19] MEDS ORDERED: POLYETHYLENE GLYCOL 17 GM PACKET PO PRN (21:30)
[2016-11-20] MEDS ORDERED: THIAMINE 100MG TABLET ONE (11:03)
[2016-11-20] MEDS: THIAMINE 100MG TABLET PO SCH (11:05)
[2016-11-20] MEDS: FOLIC ACID 1 MG TABLET PO SCH (11:13)
[2016-11-20] MEDS ORDERED: ENOXAPARIN 40 MG/0.4 ML ONE (11:39)
[2016-11-20] MEDS ORDERED: LORazepam 1MG TABLET ONE ×2 (11:39→21:58)
[2016-11-20] MEDS: LORazepam 1MG TABLET PO PRN ×2 (11:42→22:06)
[2016-11-20] MEDS: ENOXAPARIN 40 MG/0.4 ML SQ SCH (11:42)
[2016-11-20] MEDS ORDERED: ACETAMINOPHEN 325 MG TABLET ONE (17:23)
[2016-11-20] MEDS: ACETAMINOPHEN 325 MG TABLET PO PRN (17:26)
[2016-11-20] MEDS: TRAZODONE 50MG TABLET PO PRN (22:06)
[2016-11-20] MEDS ORDERED: ZIPRASIDONE 20 MG INJ IM ONE (22:30)
[2016-11-21] MEDS ORDERED: LORazepam 2 MG/ML, 1ML ONE (01:29)
[2016-11-21] MEDS ORDERED: THIAMINE 100MG TABLET ONE (12:58)
[2016-11-21] MEDS ORDERED: ENOXAPARIN 40 MG/0.4 ML ONE (12:58)
[2016-11-21] MEDS: ENOXAPARIN 40 MG/0.4 ML SQ SCH (13:08)
[2016-11-21] MEDS: THIAMINE 100MG TABLET PO SCH (13:08)
[2016-11-21] MEDS: FOLIC ACID 1 MG TABLET PO SCH (21:15)
[2016-11-21] MEDS: TRAZODONE 50MG TABLET PO PRN (21:15)
[2016-11-22] MEDS ORDERED: ACETAMINOPHEN 325 MG TABLET ONE ×2 (00:33→04:43)
[2016-11-22] MEDS: ACETAMINOPHEN 325 MG TABLET PO PRN ×2 (00:34→04:46)
[2016-11-22] MEDS ORDERED: LORazepam 1MG TABLET ONE ×3 (04:18→16:38)
[2016-11-22] MEDS: LORazepam 1MG TABLET PO PRN ×3 (04:20→18:05)
[2016-11-22] MEDS: FOLIC ACID 1 MG TABLET PO SCH (09:26)
[2016-11-22] MEDS: THIAMINE 100MG TABLET PO SCH (09:27)
[2016-11-22] MEDS ORDERED: THIAMINE 100MG TABLET ONE (09:27)
[2016-11-22] MEDS ORDERED: ENOXAPARIN 40 MG/0.4 ML ONE (12:06)
[2016-11-22] MEDS: ENOXAPARIN 40 MG/0.4 ML SQ SCH (12:07)
[2016-11-22] MEDS ORDERED: DOCUSATE 100 MG CAPSULE ONE (21:01)
[2016-11-23] MEDS ORDERED: ACETAMINOPHEN 325 MG TABLET ONE ×2 (13:00→20:59)
[2016-11-23] MEDS: THIAMINE 100MG TABLET PO SCH (13:00)
[2016-11-23] MEDS: ENOXAPARIN 40 MG/0.4 ML SQ SCH (13:00)
[2016-11-23] MEDS: ACETAMINOPHEN 325 MG TABLET PO PRN ×2 (13:00→21:07)
[2016-11-23] MEDS ORDERED: ENOXAPARIN 40 MG/0.4 ML ONE (13:01)
[2016-11-23] MEDS ORDERED: THIAMINE 100MG TABLET ONE (13:02)
[2016-11-23] MEDS ORDERED: LORazepam 1MG TABLET ONE ×2 (13:39→21:00)
[2016-11-23] MEDS: LORazepam 1MG TABLET PO PRN ×2 (13:45→21:07)
[2016-11-23] MEDS: FOLIC ACID 1 MG TABLET PO SCH (13:52)
[2016-11-23] MEDS: TRAZODONE 50MG TABLET PO PRN (21:23)
[2016-11-24] MEDS ORDERED: LORazepam 1MG TABLET ONE ×2 (08:59→19:26)
[2016-11-24] MEDS: LORazepam 1MG TABLET PO PRN ×2 (09:01→19:41)
[2016-11-24] MEDS ORDERED: THIAMINE 100MG TABLET ONE (09:05)
[2016-11-24] MEDS: THIAMINE 100MG TABLET PO SCH (09:07)
[2016-11-24] MEDS: FOLIC ACID 1 MG TABLET PO SCH (09:30)
[2016-11-24] MEDS ORDERED: ENOXAPARIN 40 MG/0.4 ML ONE (15:57)
[2016-11-24] MEDS: ENOXAPARIN 40 MG/0.4 ML SQ SCH (16:00)
[2016-11-25] MEDS ORDERED: ACETAMINOPHEN 325 MG TABLET ONE (05:23)
[2016-11-25] MEDS ORDERED: LORazepam 1MG TABLET ONE (05:24)
[2016-11-25] MEDS: ACETAMINOPHEN 325 MG TABLET PO PRN (05:26)
[2016-11-25] MEDS: LORazepam 1MG TABLET PO PRN (05:26)
[2016-11-25 06:38] VITALS: BP 117/76
[2016-11-25] MEDS ORDERED: THIAMINE 100MG TABLET ONE (08:40)
[2016-11-25] MEDS: FOLIC ACID 1 MG TABLET PO SCH (09:21)
[2016-11-25] MEDS: THIAMINE 100MG TABLET PO SCH (09:21)
[2016-11-25] MEDS: ENOXAPARIN 40 MG/0.4 ML SQ SCH (13:00)
[2016-11-26] MEDS ORDERED: HYDROcodone/APAP 5/325 TABLET ONE (05:36)
[2016-11-26] MEDS ORDERED: INDOMETHACIN 50 MG CAPSULE ONE (05:36)
== END 2016-11-25 20:31 ==
LOC: ED 07:32 → EDIP 09:23
PROVIDERS: ADMIT Hospitalist; ATTEND Family Medicine
DX: R45.851 Suicidal ideations (principal); F39 Unspecified mood [affective] disorder; F10.229 Alcohol dependence with intoxication, unspecified; M17.12 Unilateral primary osteoarthritis, left knee; I10 Essential (primary) hypertension; Z59.0 Homelessness; Z87.820 Personal history of traumatic brain injury; Z87.891 Personal history of nicotine dependence
CPT/HCPCS: 36415; 71010; 80048; 80307; 80329; 81003; 82040; 84443; 85025; 92610; 93970; 96372; 99285; G0378; J1650; J3486; G0479; G0480

== ENCOUNTER 2016-12-23 11:24 | Emergency (ER) | payer MEDICAID, MEDICARE ==
[~2016-12-23] VITALS: Ht 170.2 cm; Wt 88.5 kg
[2016-12-23 13:58] VITALS: BP 146/84
== END 2016-12-23 14:30 | disposition home or self-care (01) ==
LOC: ED 12:37
DX: S39.012A Strain of muscle, fascia and tendon of lower back, initial encounter (principal); M51.36 Other intervertebral disc degeneration, lumbar region; E11.9 Type 2 diabetes mellitus without complications; I10 Essential (primary) hypertension; F32.9 Major depressive disorder, single episode, unspecified; W05.0XXA Fall from non-moving wheelchair, initial encounter; Y93.89 Activity, other specified; Y92.89 Other specified places as the place of occurrence of the external cause; Y99.8 Other external cause status
CPT/HCPCS: 72131; 99284

== ENCOUNTER 2017-01-02 20:27 | Emergency (ER) | payer MEDICARE ==
[~2017-01-02] VITALS: Ht 170.2 cm; Wt 83.3 kg
[2017-01-02 22:14] LABS: HEMATOCRIT 47.8 % (39.2-51.8); HEMOGLOBIN 16.6 g/dL (13.7-18.0); WHITE BLOOD COUNT 10.7 x10^3/uL (3.4-10)
[2017-01-02 22:23] LABS: ASPARTATE AMINO TRANSFERASE 16 U/L (15-37); BLOOD UREA NITROGEN 12 mg/dL (7-18)
[2017-01-02 23:13] VITALS: BP 126/73
== END 2017-01-03 00:28 | disposition home or self-care (01) ==
LOC: ED 21:58
DX: M25.562 Pain in left knee (principal); G89.29 Other chronic pain
CPT/HCPCS: 29505; 36415; 80053; 80307; 85025; 99285; G0479

== ENCOUNTER 2017-03-08 13:48 | Inpatient (IN) | payer MEDICARE ==
[~2017-03-08] VITALS: Ht 172.7 cm; Wt 83.2 kg
[2017-03-08] MEDS ORDERED: SODIUM CHLORIDE 0.9% 1,000ML IVBOLUS ONE (14:00)
[2017-03-08] MEDS ORDERED: PLEASE ENTER HEIGHT AND WEIGHT MC SCH (14:30)
[2017-03-08 15:21] LABS: BASOPHILS # (AUTO) 0.04 x10^3/uL (0-0.1); BASOPHILS % (AUTO) 0 % (0-1); EOSINOPHILS # (AUTO) 0.17 x10^3/uL (0-0.4); EOSINOPHILS % (AUTO) 2 % (1-7); LYMPHOCYTES # (AUTO) 2.71 x10^3/uL (1-3.4); LYMPHOCYTES % (AUTO) 29 % (22-44); MD NO; MEAN CORPUSCULAR HEMOGLOBIN 32.3 pg (27.5-34.5); MEAN CORPUSCULAR HGB CONC 33.6 g/dL (33.2-36.2); MEAN CORPUSCULAR VOLUME 96.2 fL (81-97); MEAN PLATELET VOLUME 8.2 fL (7.4-10.4); MONOCYTES # (AUTO) 0.74 x10^3/uL (0.2-0.8); MONOCYTES % (AUTO) 8 % (2-9); NEUTROPHILS # (AUTO) 5.72 x10^3/uL (1.8-6.8); NEUTROPHILS % (AUTO) 61 % (42-75); PLATELET COUNT 345 x10^3/uL (130-400); RED CELL DISTRIBUTION WIDTH 15.5 % (9.4-14.8)
[2017-03-08 15:30] LABS: ALANINE AMINOTRANSFERASE 49 U/L (12-78); ALBUMIN 3.1 g/dL (3.4-5.0); ANION GAP 10 mmol/L (5-15); CALCIUM 9.1 mg/dL (8.5-10.1); CHLORIDE 104 mmol/L (98-107); CREATININE 0.72 mg/dL (0.7-1.3)
[2017-03-08 15:32] LABS: ALKALINE PHOSPHATASE 81 U/L (45-117); BILIRUBIN,TOTAL 0.5 mg/dL (0.2-1.0); TOTAL PROTEIN 7.9 g/dL (6.4-8.2)
[2017-03-08] MEDS ORDERED: AMPICILLIN/SULBACTAM 3 GM in SODIUM CHLORIDE 0.9% 100 ML IV ONE (16:00)
[2017-03-08] MEDS ORDERED: VANCOMYCIN PER PHARMACY MC PRN ×2 (16:00→17:00)
[2017-03-08] MEDS ORDERED: VANCOMYCIN 1,500 MG in SODIUM CHLORIDE 0.9% 250 ML IV ONE (16:30)
[2017-03-08] MEDS ORDERED: DOCUSATE 100 MG CAPSULE PO PRN (17:00)
[2017-03-08] MEDS ORDERED: LORazepam 2 MG/ML, 1ML IVPush PRN (17:00)
[2017-03-08] MEDS ORDERED: ONDANSETRON 2MG/ML, 2ML IVPush PRN (17:00)
[2017-03-08] MEDS ORDERED: ONDANSETRON ODT 4 MG PO PRN (17:00)
[2017-03-08] MEDS ORDERED: THIAMINE 100 MG, MVI ADULT 10 ML, FOLIC ACID 1 MG in D5%-0.9% NACL 1,000 ML IV SCH (17:00)
[2017-03-08] MEDS ORDERED: ENOXAPARIN 40 MG/0.4 ML SQ SCH (17:00)
[2017-03-08 17:09] LABS: HCT (SEDRATE) 46.2 % (39.2-51.8)
[2017-03-08 17:30] LABS: CREATINE KINASE, TOTAL 2243 U/L (39-308)
[2017-03-08 17:31] LABS: ACETAMINOPHEN < 2 mcg/mL (10-30); SALICYLATE LEVEL < 1.7 mg/dL (2.8-20.0)
[2017-03-08] MEDS: ENOXAPARIN 80 MG/0.8 ML SQ SCH (19:57)
[2017-03-08] MEDS: SODIUM CHLORIDE 0.9% 1,000 ML IV SCH (19:57)
[2017-03-08] MEDS ORDERED: PHARMACOKINETIC CONSULTATION MC ONE (20:00)
[2017-03-08] MEDS ORDERED: PHARMACOKINETIC MONITORING MC PRN (20:00)
[2017-03-08] MEDS: AMPICILLIN/SULBACTAM 3 GM in SODIUM CHLORIDE 0.9% 100 ML IV SCH (21:20)
[2017-03-09] MEDS: AMPICILLIN/SULBACTAM 3 GM in SODIUM CHLORIDE 0.9% 100 ML IV SCH ×4 (03:52→22:06)
[2017-03-09] MEDS: SODIUM CHLORIDE 0.9% 1,000 ML IV SCH (03:53)
[2017-03-09] MEDS: VANCOMYCIN 1,500 MG in SODIUM CHLORIDE 0.9% 250 ML IV SCH ×2 (04:41→17:00)
[2017-03-09 04:42] LABS: BASOPHILS # (AUTO) 0.05 x10^3/uL (0-0.1); BASOPHILS % (AUTO) 1 % (0-1); EOSINOPHILS # (AUTO) 0.16 x10^3/uL (0-0.4); EOSINOPHILS % (AUTO) 3 % (1-7); LYMPHOCYTES # (AUTO) 2.78 x10^3/uL (1-3.4); LYMPHOCYTES % (AUTO) 45 % (22-44); MD NO; MEAN CORPUSCULAR HEMOGLOBIN 32.3 pg (27.5-34.5); MEAN CORPUSCULAR HGB CONC 33.4 g/dL (33.2-36.2); MEAN CORPUSCULAR VOLUME 96.7 fL (81-97); MEAN PLATELET VOLUME 7.4 fL (7.4-10.4); MONOCYTES # (AUTO) 0.56 x10^3/uL (0.2-0.8); MONOCYTES % (AUTO) 9 % (2-9); NEUTROPHILS # (AUTO) 2.62 x10^3/uL (1.8-6.8); NEUTROPHILS % (AUTO) 42 % (42-75); PLATELET COUNT 272 x10^3/uL (130-400); RED BLOOD COUNT 3.82 x10^6/uL (4.38-5.82); RED CELL DISTRIBUTION WIDTH 15.4 % (9.4-14.8)
[2017-03-09 04:52] LABS: ANION GAP 6 mmol/L (5-15); CALCIUM 7.9 mg/dL (8.5-10.1); CHLORIDE 114 mmol/L (98-107); CREATININE 0.77 mg/dL (0.7-1.3)
[2017-03-09 04:53] LABS: ALANINE AMINOTRANSFERASE 33 U/L (12-78); ALBUMIN 2.1 g/dL (3.4-5.0)
[2017-03-09 04:55] LABS: ALKALINE PHOSPHATASE 57 U/L (45-117); BILIRUBIN,TOTAL 0.4 mg/dL (0.2-1.0); TOTAL PROTEIN 5.4 g/dL (6.4-8.2)
[2017-03-09 06:41] LABS: AMPHETAMINE SCREEN, URINE Negative (Negative); BARBITURATE SCREEN, URINE Negative (Negative); BENZODIAZEPINE SCREEN, URINE Negative (Negative); CANNABINOID SCREEN, URINE Positive (Negative); COCAINE SCREEN, URINE Negative (Negative); METHADONE SCREEN, URINE Negative (Negative); OPIATE SCREEN, URINE Negative (Negative)
[2017-03-09] MEDS: ENOXAPARIN 80 MG/0.8 ML SQ SCH ×2 (07:42→19:46)
[2017-03-09] MEDS: FOLIC ACID 1 MG TABLET PO SCH (09:18)
[2017-03-09] MEDS: MULTIVITAMIN 1 TABLET PO SCH (09:18)
[2017-03-09] MEDS: CHLORDIAZEPOXIDE 25 MG CAPSULE PO SCH ×3 (09:18→19:46)
[2017-03-09] MEDS: THIAMINE 100MG TABLET PO SCH (09:18)
[2017-03-09 13:01] VITALS: BP 91/54
[2017-03-09 19:26] VITALS: BP 114/76
[2017-03-10 02:00] VITALS: BP 101/66
[2017-03-10] MEDS: AMPICILLIN/SULBACTAM 3 GM in SODIUM CHLORIDE 0.9% 100 ML IV SCH ×4 (03:49→22:24)
[2017-03-10] MEDS: VANCOMYCIN 1,500 MG in SODIUM CHLORIDE 0.9% 250 ML IV SCH ×2 (04:44→17:57)
[2017-03-10] MEDS: CHLORDIAZEPOXIDE 25 MG CAPSULE PO SCH ×3 (09:12→20:16)
[2017-03-10] MEDS: THIAMINE 100MG TABLET PO SCH (09:12)
[2017-03-10] MEDS: MULTIVITAMIN 1 TABLET PO SCH (09:12)
[2017-03-10] MEDS: ENOXAPARIN 80 MG/0.8 ML SQ SCH ×2 (09:13→20:16)
[2017-03-10] MEDS: FOLIC ACID 1 MG TABLET PO SCH (09:13)
[2017-03-10 09:15] VITALS: BP 102/68
[2017-03-10 12:41] VITALS: BP 105/71
[2017-03-10] MEDS: CLOTRIMAZOLE CRM 1%, 15GM TP SCH ×2 (16:54→23:00)
[2017-03-10 18:56] VITALS: BP 100/62
[2017-03-10] MEDS: ACETAMINOPHEN 325 MG TABLET PO PRN (22:24)
[2017-03-10] MEDS: LORazepam 2 MG/ML, 1ML IV PRN (23:16)
[2017-03-11 00:49] VITALS: BP 97/61
[2017-03-11] MEDS: AMPICILLIN/SULBACTAM 3 GM in SODIUM CHLORIDE 0.9% 100 ML IV SCH ×4 (05:02→22:52)
[2017-03-11] MEDS: VANCOMYCIN 1,500 MG in SODIUM CHLORIDE 0.9% 250 ML IV SCH ×2 (06:13→18:23)
[2017-03-11 06:53] VITALS: BP 102/68
[2017-03-11] MEDS: ENOXAPARIN 80 MG/0.8 ML SQ SCH ×2 (11:30→22:04)
[2017-03-11] MEDS: THIAMINE 100MG TABLET PO SCH (11:30)
[2017-03-11] MEDS: ACETAMINOPHEN 325 MG TABLET PO PRN ×2 (11:31→23:12)
[2017-03-11] MEDS: FOLIC ACID 1 MG TABLET PO SCH (11:31)
[2017-03-11] MEDS: CLOTRIMAZOLE CRM 1%, 15GM TP SCH ×2 (11:34→22:04)
[2017-03-11] MEDS: MULTIVITAMIN 1 TABLET PO SCH (11:34)
[2017-03-11 13:47] VITALS: BP 101/58
[2017-03-11 19:47] VITALS: BP 116/77
[2017-03-11] MEDS: LORazepam 2 MG/ML, 1ML IV PRN (22:52)
[2017-03-12 03:27] VITALS: BP 102/67
[2017-03-12] MEDS: AMPICILLIN/SULBACTAM 3 GM in SODIUM CHLORIDE 0.9% 100 ML IV SCH ×4 (05:55→23:47)
[2017-03-12] MEDS: VANCOMYCIN 1,500 MG in SODIUM CHLORIDE 0.9% 250 ML IV SCH ×2 (06:26→18:11)
[2017-03-12 06:35] LABS: BASOPHILS # (AUTO) 0.04 x10^3/uL (0-0.1); BASOPHILS % (AUTO) 1 % (0-1); EOSINOPHILS % (AUTO) 3 % (1-7); LYMPHOCYTES # (AUTO) 1.99 x10^3/uL (1-3.4); LYMPHOCYTES % (AUTO) 34 % (22-44); MD NO; MEAN CORPUSCULAR HEMOGLOBIN 32.2 pg (27.5-34.5); MEAN CORPUSCULAR HGB CONC 33.6 g/dL (33.2-36.2); MEAN CORPUSCULAR VOLUME 95.9 fL (81-97); MEAN PLATELET VOLUME 6.9 fL (7.4-10.4); MONOCYTES % (AUTO) 8 % (2-9); NEUTROPHILS % (AUTO) 54 % (42-75); PLATELET COUNT 284 x10^3/uL (130-400); RED BLOOD COUNT 4.16 x10^6/uL (4.38-5.82); RED CELL DISTRIBUTION WIDTH 15.5 % (9.4-14.8)
[2017-03-12 06:44] LABS: ANION GAP 5 mmol/L (5-15); CALCIUM 8.4 mg/dL (8.5-10.1); CHLORIDE 111 mmol/L (98-107); CREATININE 0.88 mg/dL (0.7-1.3)
[2017-03-12 07:08] VITALS: BP 104/65
[2017-03-12] MEDS: CLOTRIMAZOLE CRM 1%, 15GM TP SCH ×2 (09:00→21:15)
[2017-03-12] MEDS: THIAMINE 100MG TABLET PO SCH (11:31)
[2017-03-12] MEDS: ENOXAPARIN 80 MG/0.8 ML SQ SCH ×2 (11:31→21:15)
[2017-03-12] MEDS: FOLIC ACID 1 MG TABLET PO SCH (11:31)
[2017-03-12] MEDS: MULTIVITAMIN 1 TABLET PO SCH (11:31)
[2017-03-12 14:58] VITALS: BP 100/69
[2017-03-12 19:00] VITALS: BP 103/65
[2017-03-12] MEDS: ACETAMINOPHEN 325 MG TABLET PO PRN (21:43)
[2017-03-13 01:23] VITALS: BP 104/68
[2017-03-13] MEDS: AMPICILLIN/SULBACTAM 3 GM in SODIUM CHLORIDE 0.9% 100 ML IV SCH ×3 (05:33→18:20)
[2017-03-13] MEDS: VANCOMYCIN 1,500 MG in SODIUM CHLORIDE 0.9% 250 ML IV SCH (06:07)
[2017-03-13 08:21] VITALS: BP 115/79
[2017-03-13] MEDS: THIAMINE 100MG TABLET PO SCH (08:44)
[2017-03-13] MEDS: CLOTRIMAZOLE CRM 1%, 15GM TP SCH ×2 (08:44→20:58)
[2017-03-13] MEDS: FOLIC ACID 1 MG TABLET PO SCH (08:44)
[2017-03-13] MEDS: MULTIVITAMIN 1 TABLET PO SCH (08:44)
[2017-03-13] MEDS: ENOXAPARIN 80 MG/0.8 ML SQ SCH ×2 (08:44→22:57)
[2017-03-13] MEDS: ACETAMINOPHEN 325 MG TABLET PO PRN ×2 (08:45→20:58)
[2017-03-13] MEDS: GABAPENTIN 100 MG CAPSULE PO SCH ×3 (10:30→20:58)
[2017-03-13 12:50] VITALS: BP 110/66
[2017-03-13 19:43] VITALS: BP 109/74
[2017-03-14] MEDS: AMPICILLIN/SULBACTAM 3 GM in SODIUM CHLORIDE 0.9% 100 ML IV SCH ×5 (00:09→23:40)
[2017-03-14 01:46] VITALS: BP 106/70
[2017-03-14] MEDS: ACETAMINOPHEN 325 MG TABLET PO PRN ×2 (05:56→22:48)
[2017-03-14 07:33] VITALS: BP 99/68
[2017-03-14 07:40] LABS: BASOPHILS # (AUTO) 0.08 x10^3/uL (0-0.1); BASOPHILS % (AUTO) 1 % (0-1); EOSINOPHILS # (AUTO) 0.23 x10^3/uL (0-0.4); EOSINOPHILS % (AUTO) 4 % (1-7); LYMPHOCYTES # (AUTO) 2.47 x10^3/uL (1-3.4); LYMPHOCYTES % (AUTO) 42 % (22-44); MD NO; MEAN CORPUSCULAR HEMOGLOBIN 32.2 pg (27.5-34.5); MEAN CORPUSCULAR HGB CONC 33.1 g/dL (33.2-36.2); MEAN CORPUSCULAR VOLUME 97.2 fL (81-97); MEAN PLATELET VOLUME 6.9 fL (7.4-10.4); MONOCYTES # (AUTO) 0.66 x10^3/uL (0.2-0.8); MONOCYTES % (AUTO) 11 % (2-9); NEUTROPHILS # (AUTO) 2.52 x10^3/uL (1.8-6.8); NEUTROPHILS % (AUTO) 42 % (42-75); PLATELET COUNT 260 x10^3/uL (130-400); RED BLOOD COUNT 4.22 x10^6/uL (4.38-5.82); RED CELL DISTRIBUTION WIDTH 15.3 % (9.4-14.8)
[2017-03-14 07:54] LABS: ANION GAP 4 mmol/L (5-15); CALCIUM 8.4 mg/dL (8.5-10.1); CHLORIDE 110 mmol/L (98-107); CREATININE 0.75 mg/dL (0.7-1.3)
[2017-03-14] MEDS: CLOTRIMAZOLE CRM 1%, 15GM TP SCH ×2 (09:00→21:28)
[2017-03-14] MEDS: GABAPENTIN 100 MG CAPSULE PO SCH ×3 (09:53→21:27)
[2017-03-14] MEDS: FOLIC ACID 1 MG TABLET PO SCH (09:53)
[2017-03-14] MEDS: THIAMINE 100MG TABLET PO SCH (09:53)
[2017-03-14] MEDS: MULTIVITAMIN 1 TABLET PO SCH (09:53)
[2017-03-14] MEDS: ENOXAPARIN 80 MG/0.8 ML SQ SCH ×2 (09:53→21:27)
[2017-03-14] MEDS ORDERED: GABA-826 PO (12:42)
[2017-03-14] MEDS ORDERED: THIA100T6 PO (12:42)
[2017-03-14] MEDS ORDERED: APIX5TAB PO (12:42)
[2017-03-14] MEDS ORDERED: MULT1TAB60 PO (12:42)
[2017-03-14] MEDS ORDERED: FOLI-17 PO (12:42)
[2017-03-14] MEDS ORDERED: CLOT15CR5 TP (12:42)
[2017-03-14] MEDS ORDERED: AMOX1TAB64 PO (12:43)
[2017-03-14] MEDS ORDERED: FLU VACC QS2017-18 (36MOS+) UP/PF 0.5 ML IM-VACC ONE (13:30)
[2017-03-14 13:50] VITALS: BP 107/68
[2017-03-14 19:14] VITALS: BP 106/71
[2017-03-15] MEDS: AMPICILLIN/SULBACTAM 3 GM in SODIUM CHLORIDE 0.9% 100 ML IV SCH ×4 (00:23→17:56)
[2017-03-15 01:45] VITALS: BP 99/64
[2017-03-15 07:37] VITALS: BP 94/60
[2017-03-15] MEDS: GABAPENTIN 100 MG CAPSULE PO SCH ×3 (08:32→21:11)
[2017-03-15] MEDS: MULTIVITAMIN 1 TABLET PO SCH (08:32)
[2017-03-15] MEDS: FOLIC ACID 1 MG TABLET PO SCH (08:32)
[2017-03-15] MEDS: THIAMINE 100MG TABLET PO SCH (08:32)
[2017-03-15] MEDS: CLOTRIMAZOLE CRM 1%, 15GM TP SCH ×2 (09:00→21:12)
[2017-03-15] MEDS: ENOXAPARIN 80 MG/0.8 ML SQ SCH ×2 (10:21→21:12)
[2017-03-15 13:25] VITALS: BP 94/60
[2017-03-15 19:14] VITALS: BP 97/57
[2017-03-15] MEDS: ACETAMINOPHEN 325 MG TABLET PO PRN (21:12)
[2017-03-16] MEDS: AMPICILLIN/SULBACTAM 3 GM in SODIUM CHLORIDE 0.9% 100 ML IV SCH ×2 (00:36→06:12)
[2017-03-16 01:55] VITALS: BP 97/59
[2017-03-16 08:00] VITALS: BP 93/59
[2017-03-16] MEDS: THIAMINE 100MG TABLET PO SCH (09:27)
[2017-03-16] MEDS: FOLIC ACID 1 MG TABLET PO SCH (09:27)
[2017-03-16] MEDS: AMOXICILLIN/CLAV 875-125MG TABLET PO SCH ×2 (09:27→20:15)
[2017-03-16] MEDS: MULTIVITAMIN 1 TABLET PO SCH (09:27)
[2017-03-16] MEDS: GABAPENTIN 100 MG CAPSULE PO SCH ×3 (09:27→20:15)
[2017-03-16] MEDS: CLOTRIMAZOLE CRM 1%, 15GM TP SCH ×2 (09:28→20:15)
[2017-03-16] MEDS: ENOXAPARIN 80 MG/0.8 ML SQ SCH ×2 (09:28→20:16)
[2017-03-16 13:32] VITALS: BP 101/70
[2017-03-16] MEDS: ACETAMINOPHEN 325 MG TABLET PO PRN ×2 (18:25→20:15)
[2017-03-16 19:13] VITALS: BP 111/66
[2017-03-17 02:31] VITALS: BP 100/67
[2017-03-17 07:49] VITALS: BP 98/63
[2017-03-17] MEDS: ENOXAPARIN 80 MG/0.8 ML SQ SCH (09:00)
[2017-03-17] MEDS: THIAMINE 100MG TABLET PO SCH (09:00)
[2017-03-17] MEDS: AMOXICILLIN/CLAV 875-125MG TABLET PO SCH (09:00)
[2017-03-17] MEDS: MULTIVITAMIN 1 TABLET PO SCH (09:00)
[2017-03-17] MEDS: CLOTRIMAZOLE CRM 1%, 15GM TP SCH (09:00)
[2017-03-17] MEDS: GABAPENTIN 100 MG CAPSULE PO SCH (09:00)
[2017-03-17] MEDS: FOLIC ACID 1 MG TABLET PO SCH (09:00)
== END 2017-03-17 12:01 | disposition home or self-care (01) | DRG 299 ==
LOC: ED 15:58 → EDIP 15:59 → ED 16:02 → CCU 19:21 → 3NE 03-09 17:58
PROVIDERS: ADMIT Internal Medicine; ATTEND Family Medicine
DX: I82.432 Acute embolism and thrombosis of left popliteal vein (principal); G93.40 Encephalopathy, unspecified; E44.1 Mild protein-calorie malnutrition; E11.42 Type 2 diabetes mellitus with diabetic polyneuropathy; L03.116 Cellulitis of left lower limb; B35.3 Tinea pedis; D64.9 Anemia, unspecified; Z87.891 Personal history of nicotine dependence; I10 Essential (primary) hypertension; F29 Unspecified psychosis not due to a substance or known physiological condition; F39 Unspecified mood [affective] disorder; M17.12 Unilateral primary osteoarthritis, left knee; F32.9 Major depressive disorder, single episode, unspecified; R47.1 Dysarthria and anarthria; F10.20 Alcohol dependence, uncomplicated; Z59.0 Homelessness; Z87.820 Personal history of traumatic brain injury; Z99.3 Dependence on wheelchair; Z68.27 Body mass index [BMI] 27.0-27.9, adult
CPT/HCPCS: 36415; 80048; 80053; 80202; 80307; 80329; 82140; 82550; 82607; 83605; 83735; 84100; 85025; 85651; 86140; 87040; 87081; 90686; 96361; 96365; J0295; J1650; J3370; J3411; J7042; G0480; J2060; J7030; J7050

== ENCOUNTER 2017-03-18 08:10 | Inpatient (IN) | payer MEDICARE ==
[~2017-03-18] VITALS: Ht 170.2 cm; Wt 82.5 kg
[~2017-03-18 08:10] MED LIST changes: +AMOX1TAB64 PO; +APIX5TAB PO; +CLOT15CR5 TP; +FOLI-17 PO; +GABA-826 PO; +MULT1TAB60 PO; +THIA100T6 PO
[2017-03-18 09:40] LABS: BASOPHILS # (AUTO) 0.03 x10^3/uL (0-0.1); BASOPHILS % (AUTO) 0 % (0-1); EOSINOPHILS # (AUTO) 0.11 x10^3/uL (0-0.4); EOSINOPHILS % (AUTO) 1 % (1-7); LYMPHOCYTES # (AUTO) 1.92 x10^3/uL (1-3.4); LYMPHOCYTES % (AUTO) 25 % (22-44); MD SCAN; MEAN CORPUSCULAR HEMOGLOBIN 32.6 pg (27.5-34.5); MEAN CORPUSCULAR HGB CONC 33.8 g/dL (33.2-36.2); MEAN CORPUSCULAR VOLUME 96.6 fL (81-97); MEAN PLATELET VOLUME 7.8 fL (7.4-10.4); MONOCYTES # (AUTO) 0.61 x10^3/uL (0.2-0.8); MONOCYTES % (AUTO) 8 % (2-9); NEUTROPHILS # (AUTO) 5.13 x10^3/uL (1.8-6.8); NEUTROPHILS % (AUTO) 66 % (42-75); PLATELET COUNT 243 x10^3/uL (130-400); RED BLOOD COUNT 5.09 x10^6/uL (4.38-5.82); RED CELL DISTRIBUTION WIDTH 15.1 % (9.4-14.8)
[2017-03-18 09:50] LABS: ALANINE AMINOTRANSFERASE 34 U/L (12-78); ALBUMIN 3.3 g/dL (3.4-5.0); ANION GAP 9 mmol/L (5-15); CALCIUM 8.7 mg/dL (8.5-10.1); CHLORIDE 112 mmol/L (98-107); CREATININE 0.65 mg/dL (0.7-1.3)
[2017-03-18 09:52] LABS: ALKALINE PHOSPHATASE 83 U/L (45-117); BILIRUBIN,TOTAL 0.2 mg/dL (0.2-1.0); TOTAL PROTEIN 7.8 g/dL (6.4-8.2)
[2017-03-18] MEDS ORDERED: ASPIRIN 325 MG TABLET PO ONE (11:30)
[2017-03-18] MEDS ORDERED: POTASSIUM CHLORIDE 20 MEQ, MAGNESIUM SULFATE 2 GM, THIAMINE 100 MG, MVI ADULT 10 ML, FO... IV SCH (11:40)
[2017-03-18] MEDS ORDERED: hydrALAzine 20 MG/ML, 1ML IVPush PRN (12:00)
[2017-03-18] MEDS ORDERED: ONDANSETRON 2MG/ML, 2ML IVPush PRN (12:00)
[2017-03-18] MEDS ORDERED: TRAZODONE 50MG TABLET PO PRN (12:00)
[2017-03-18] MEDS ORDERED: ASPIRIN 325 MG TABLET EC ONE (12:03)
[2017-03-18] MEDS ORDERED: CEFTRIAXONE PMX 1GM/50ML 50 ML ONE (12:03)
[2017-03-18] MEDS: CEFTRIAXONE PMX 1GM/50ML 50 ML IV SCH (12:20)
[2017-03-18] MEDS: ASPIRIN 325 MG TABLET EC PO SCH (12:20)
[2017-03-18] MEDS: ACETAMINOPHEN 325 MG TABLET PO PRN ×2 (16:21→21:39)
[2017-03-18] MEDS: GABAPENTIN 100 MG CAPSULE PO SCH ×3 (16:21→21:39)
[2017-03-18 19:47] VITALS: BP 114/71
[2017-03-18] MEDS: APIXABAN 5 MG TABLET PO SCH (21:39)
[2017-03-19 01:44] VITALS: BP 107/71
[2017-03-19 05:17] LABS: BASOPHILS # (AUTO) 0.05 x10^3/uL (0-0.1); BASOPHILS % (AUTO) 1 % (0-1); EOSINOPHILS # (AUTO) 0.36 x10^3/uL (0-0.4); EOSINOPHILS % (AUTO) 5 % (1-7); LYMPHOCYTES # (AUTO) 3.57 x10^3/uL (1-3.4); LYMPHOCYTES % (AUTO) 47 % (22-44); MD NO; MEAN CORPUSCULAR HEMOGLOBIN 32.8 pg (27.5-34.5); MEAN CORPUSCULAR HGB CONC 33.8 g/dL (33.2-36.2); MEAN PLATELET VOLUME 7.9 fL (7.4-10.4); MONOCYTES # (AUTO) 0.77 x10^3/uL (0.2-0.8); MONOCYTES % (AUTO) 10 % (2-9); NEUTROPHILS # (AUTO) 2.93 x10^3/uL (1.8-6.8); NEUTROPHILS % (AUTO) 38 % (42-75); PLATELET COUNT 242 x10^3/uL (130-400); RED BLOOD COUNT 4.34 x10^6/uL (4.38-5.82); RED CELL DISTRIBUTION WIDTH 15.2 % (9.4-14.8)
[2017-03-19 05:28] LABS: CHLORIDE 108 mmol/L (98-107)
[2017-03-19 05:47] LABS: ALANINE AMINOTRANSFERASE 26 U/L (12-78); ALBUMIN 2.8 g/dL (3.4-5.0); ALKALINE PHOSPHATASE 77 U/L (45-117); ANION GAP 6 mmol/L (5-15); BILIRUBIN,TOTAL 0.3 mg/dL (0.2-1.0); CALCIUM 8.2 mg/dL (8.5-10.1); CHOL/HDL RATIO 2.5; CHOLESTEROL, TOTAL 109 mg/dL (140-239); CREATININE 0.85 mg/dL (0.7-1.3); HDL CHOL % 40 % (26-37); HDL CHOLESTEROL (DIRECT) 44 mg/dL (40-60); LDL CHOLESTEROL,CALCULATED 57 mg/dL (54-169); LDL/HDL RATIO 1.3 (0.5-3.0); TOTAL PROTEIN 6.5 g/dL (6.4-8.2); TRIGLYCERIDES 39 mg/dL (50-200); VLDL CHOLESTEROL 8 mg/dL (0-25)
[2017-03-19 06:58] VITALS: BP 99/66
[2017-03-19] MEDS: APIXABAN 5 MG TABLET PO SCH ×2 (09:05→20:35)
[2017-03-19] MEDS: GABAPENTIN 100 MG CAPSULE PO SCH ×3 (09:05→20:35)
[2017-03-19] MEDS: ACETAMINOPHEN 325 MG TABLET PO PRN ×2 (10:50→20:56)
[2017-03-19] MEDS: CEFTRIAXONE PMX 1GM/50ML 50 ML IV SCH (12:11)
[2017-03-19 13:02] VITALS: BP 104/58
[2017-03-19] MEDS: POTASSIUM CHLORIDE 20 MEQ, MAGNESIUM SULFATE 2 GM, MVI ADULT 10 ML, FOLIC ACID 1 MG in ... IV SCH (15:26)
[2017-03-19] MEDS: THIAMINE 100MG TABLET PO SCH (15:32)
[2017-03-19 19:33] VITALS: BP 107/66
[2017-03-20 01:32] VITALS: BP 95/65
[2017-03-20] MEDS: ASPIRIN 325 MG TABLET EC PO SCH (06:02)
[2017-03-20 07:08] VITALS: BP 109/69
[2017-03-20] MEDS: APIXABAN 5 MG TABLET PO SCH ×2 (09:03→21:00)
[2017-03-20] MEDS: THIAMINE 100MG TABLET PO SCH (09:03)
[2017-03-20] MEDS: GABAPENTIN 100 MG CAPSULE PO SCH ×3 (09:03→21:00)
[2017-03-20] MEDS: ACETAMINOPHEN 325 MG TABLET PO PRN (09:17)
[2017-03-20] MEDS: CEFTRIAXONE PMX 1GM/50ML 50 ML IV SCH (12:00)
[2017-03-20 13:08] VITALS: BP 100/64
[2017-03-20] MEDS: POTASSIUM CHLORIDE 20 MEQ, MAGNESIUM SULFATE 2 GM, MVI ADULT 10 ML, FOLIC ACID 1 MG in ... IV SCH (16:10)
[2017-03-20 20:00] VITALS: BP 102/61
[2017-03-21 02:00] VITALS: BP 115/68
[2017-03-21] MEDS: ASPIRIN 325 MG TABLET EC PO SCH (05:15)
[2017-03-21 06:58] VITALS: BP 92/54
[2017-03-21] MEDS: THIAMINE 100MG TABLET PO SCH (09:23)
[2017-03-21] MEDS: APIXABAN 5 MG TABLET PO SCH ×2 (09:23→20:15)
[2017-03-21] MEDS: GABAPENTIN 100 MG CAPSULE PO SCH ×3 (09:23→20:15)
[2017-03-21] MEDS: CEFTRIAXONE PMX 1GM/50ML 50 ML IV SCH (12:07)
[2017-03-21 12:20] VITALS: BP 98/63
[2017-03-21] MEDS: POTASSIUM CHLORIDE 20 MEQ, MAGNESIUM SULFATE 2 GM, MVI ADULT 10 ML, FOLIC ACID 1 MG in ... IV SCH (18:27)
[2017-03-21 19:21] VITALS: BP 114/78
[2017-03-22 03:06] VITALS: BP 103/67
[2017-03-22] MEDS: ASPIRIN 325 MG TABLET EC PO SCH (05:04)
[2017-03-22 07:07] VITALS: BP 112/72
[2017-03-22] MEDS: THIAMINE 100MG TABLET PO SCH (09:04)
[2017-03-22] MEDS: APIXABAN 5 MG TABLET PO SCH (09:04)
[2017-03-22] MEDS: GABAPENTIN 100 MG CAPSULE PO SCH (09:04)
[2017-03-22] MEDS: CEFTRIAXONE PMX 1GM/50ML 50 ML IV SCH (12:40)
[2017-03-22 13:33] VITALS: BP 118/78
== END 2017-03-22 16:25 | DRG 922 ==
LOC: ED 11:00 → EDIP 11:01 → SUATTDRO 11:37 → ED 11:45 → 4EST 12:53
PROVIDERS: ADMIT Hospitalist; ATTEND Hospitalist
DX: T33.822A Superficial frostbite of left foot, initial encounter (principal); E43 Unspecified severe protein-calorie malnutrition; L03.115 Cellulitis of right lower limb; L03.116 Cellulitis of left lower limb; E11.9 Type 2 diabetes mellitus without complications; F10.229 Alcohol dependence with intoxication, unspecified; I10 Essential (primary) hypertension; M21.379 Foot drop, unspecified foot; F32.9 Major depressive disorder, single episode, unspecified; R23.0 Cyanosis; Z68.25 Body mass index [BMI] 25.0-25.9, adult; Z59.0 Homelessness; Z99.3 Dependence on wheelchair; Y93.89 Activity, other specified; Y92.89 Other specified places as the place of occurrence of the external cause; Y99.8 Other external cause status
CPT/HCPCS: 36415; 70450; 70551; 80053; 80061; 80307; 83735; 84100; 84443; 85025; 93005; 93306; 99285; J0696; J3411; J3475; J3480; J7042

== ENCOUNTER 2019-09-28 22:52 | Emergency (ER) | payer MEDICARE ==
[~2019-09-28] VITALS: Ht 170.2 cm; Wt 89.0 kg
[~2019-09-28 22:52] MED LIST changes: +CLOT15CR26 TP; -CLOT15CR5 TP; +HYDR-826 PO; -HYDR25TA11 PO; +MULT-449 PO; -MULT1TAB60 PO; -THIA100T6 PO; +THIA100T67 PO
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
[2019-09-29] MEDS ORDERED: DIPH,PERTUSS(ACELL),TET VAC/PF 0.5 ML IM-VACC ONE ×2 (00:30→01:28)
[2019-09-29] MEDS ORDERED: LIDOCAINE-MPF 1%, 5ML INFIL ONE (00:30)
--- NOTE | 2019-09-29 00:35 | NUR ---
PT RESTING IN BED, PA AT BEDSIDE FOR SUTURES
--- NOTE | 2019-09-29 01:14 | NUR ---
PT RESTING ON ISABEL KIM, NO NEEDS AT THIS TIME, PA WILL REATTEMPT SUTURES SHORTLY.
--- NOTE | 2019-09-29 04:36 | NUR ---
PT STILL SLEEPING ON GURNEY AROUSABLE TO VERBAL STIMULI
[2019-09-29 05:58] VITALS: BP 126/78
[2019-09-29] MEDS ORDERED: ACETAMINOPHEN 325 MG TABLET ONE (06:03)
[2019-09-29] MEDS ORDERED: ACETAMINOPHEN 325 MG TABLET PO ONE (06:30)
== END 2019-09-29 06:21 | disposition home or self-care (01) ==
LOC: ED 23:22
DX: S01.511A Laceration without foreign body of lip, initial encounter (principal); M54.2 Cervicalgia; F10.120 Alcohol abuse with intoxication, uncomplicated; Z72.9 Problem related to lifestyle, unspecified; E11.9 Type 2 diabetes mellitus without complications; I10 Essential (primary) hypertension; W05.0XXA Fall from non-moving wheelchair, initial encounter; Y93.89 Activity, other specified; Y99.8 Other external cause status; Y92.410 Unspecified street and highway as the place of occurrence of the external cause; Y90.9 Presence of alcohol in blood, level not specified
CPT/HCPCS: 12051; 70450; 72125; 90471; 90715; 93005; 99285

== ENCOUNTER 2019-10-02 09:37 | Inpatient (IN) | payer MEDICARE, OTHER ==
[~2019-10-02] VITALS: Ht 170.2 cm; Wt 91.1 kg
--- NOTE | 2019-10-02 09:44 | NUR ---
Code Neuro was called at 0923 after [facility] pre-alert. Code Neuro cancelled by Dr. Saxena on patients arrival.
[2019-10-02] MEDS: PLEASE ENTER ALLERGIES MC SCH ×2 (10:00→18:00)
[2019-10-02] MEDS ORDERED: SODIUM CHLORIDE FLUSH 10ML SYR IVF ONE (10:00)
[2019-10-02] MEDS: PLEASE ENTER HEIGHT AND WEIGHT MC SCH ×2 (10:00→18:00)
[2019-10-02 10:07] LABS: BASOPHILS # (AUTO) 0.01 x10^3/uL (0-0.1); BASOPHILS % (AUTO) 0 % (0-1); EOSINOPHILS # (AUTO) 0.12 x10^3/uL (0-0.4); EOSINOPHILS % (AUTO) 1 % (1-7); LYMPHOCYTES # (AUTO) 1.09 x10^3/uL (1-3.4); LYMPHOCYTES % (AUTO) 12 % (22-44); MD NO; MEAN CORPUSCULAR HGB CONC 33.6 g/dL (33.2-36.2); MEAN CORPUSCULAR VOLUME 93.5 fL (81-97); MEAN PLATELET VOLUME 8.5 fL (7.4-10.4); MONOCYTES # (AUTO) 0.37 x10^3/uL (0.2-0.8); MONOCYTES % (AUTO) 4 % (2-9); NEUTROPHILS # (AUTO) 7.19 x10^3/uL (1.8-6.8); NEUTROPHILS % (AUTO) 82 % (42-75); PLATELET COUNT 221 x10^3/uL (130-400); RED CELL DISTRIBUTION WIDTH 13.6 % (9.4-14.8)
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
[2019-10-02 10:16] LABS: ALANINE AMINOTRANSFERASE 19 U/L (12-78); ALBUMIN 3.4 g/dL (3.4-5.0); ANION GAP 5 mmol/L (5-15); BILIRUBIN, DIRECT 0.2 mg/dL (0.1-0.2); CALCIUM 9.2 mg/dL (8.5-10.1); CHLORIDE 107 mmol/L (98-107); INTERNATIONAL NORMALIZED RATIO 0.98 (0.93-1.1); PROTHROMBIN TIME 10.1 Seconds (9.6-11.5)
[2019-10-02 10:19] LABS: ALKALINE PHOSPHATASE 73 U/L (45-117); BILIRUBIN,INDIRECT 0.2 mg/dL (0.0-2.0); BILIRUBIN,TOTAL 0.4 mg/dL (0.2-1.0); TOTAL PROTEIN 7.9 g/dL (6.4-8.2)
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
[2019-10-02 11:00] LABS: SALICYLATE LEVEL 1.7 mg/dL (2.8-20.0)
--- NOTE | 2019-10-02 11:41 | NUR ---
PT STRAIGHT CATH'D WITH RN DEREK'S ASSISTANCE, URINE SENT TO LAB. APPOX 400ML DRAINED FROM BLADDER. PT TAKEN TO MRI AT THIS TIME.
[2019-10-02 12:13] LABS: AMPHETAMINE SCREEN, URINE Negative (Negative); BARBITURATE SCREEN, URINE Negative (Negative); CANNABINOID SCREEN, URINE Positive (Negative); COCAINE SCREEN, URINE Negative (Negative); METHADONE SCREEN, URINE Negative (Negative); OPIATE SCREEN, URINE Negative (Negative)
--- NOTE | 2019-10-02 12:13 | NUR ---
pt back from MRI.
[2019-10-02 12:14] LABS: BENZODIAZEPINE SCREEN, URINE Negative (Negative); MICROSCOPIC INDICATED
--- NOTE | 2019-10-02 12:24 | NUR ---
PT REMAINS SOMNOLENT, PUPILS EQUAL, ROUND AND REACTIVE. END TIDAL CO2 38-41. SPO2 100% ON ROOM AIR. NSR ON LEATHER PRODUCTION WORKER WITH NO ECTOPY. PT LOCALIZES TO PAINFUL STIMULI. AWAITING MRI, URINE SCREEN AND DISPO.
[2019-10-02] MEDS ORDERED: NALOXONE 0.4 MG/ML, 1ML IVPush ONE (12:30)
[2019-10-02] MEDS ORDERED: NALOXONE 0.4 MG/ML, 1ML ONE (12:31)
--- NOTE | 2019-10-02 12:43 | NUR ---
md tracey notified pt remains somnolent, responsive to painful stimuli only. pupils 1mm bilaterally with most recent assessment. doa results reviewed by MD tracey, narcan ordered, pushed slowly. this RN at bedside to monitor closely following admin.
[2019-10-02 12:45] LABS: FIO2 ROOM AIR %
--- NOTE | 2019-10-02 12:54 | NUR ---
PT NOT RESPONSIVE TO NARCAN ADMIN, PT REMAINS SOMNOLENT AND RESPONSIVE ONLY TO PAINFUL STIMILI, PUPILS REMAIN AT 1MM. EDMN NANNETTE NOTIFIED. PT TO BE ADMITTED.
--- NOTE | 2019-10-02 13:49 | NUR ---
HOSPITALIST JOAN AT BEDSIDE TO PERFORM ADMIT ASSESSMENT. MD BRUNSON AT BEDSIDE EXPLAINING COURSE OF CARE THUS FAR. PT DEMONSTRATES SOME SPONTANEOUS MOVEMENT, SCRATCHING SELF AND GROANING. PT IS NSR ON PARTS ADVISOR, RATE 80'S WITH NO ECTOPY. RESPS EVEN AND UNLABORED. END TIDAL CO2 REMAINS 37-41. AWAITING ADMIT ROOM ASSIGNMENT AND TRANSPORT.
[2019-10-02] MEDS ORDERED: POLYETHYLENE GLYCOL 17 GM PACKET PO PRN (14:00)
[2019-10-02] MEDS ORDERED: ONDANSETRON ODT 4 MG PO PRN (14:00)
[2019-10-02] MEDS ORDERED: LORazepam 2 MG/ML, 1ML IVPush PRN (14:00)
[2019-10-02] MEDS ORDERED: SENNA/DOCUSATE TABLET PO PRN (14:00)
[2019-10-02] MEDS ORDERED: ONDANSETRON 2MG/ML, 2ML IVPush PRN (14:00)
--- NOTE | 2019-10-02 14:15 | NUR ---
ANIMAL EVISCERATOR AT BEDSIDE TO INITIATE EEG. PT LOCALIZES TO PAINFUL STIMULI. PUPILS 2MM, EQUAL, ROUND AND REACTIVE. VSS. AWAITING ADMIT ROOM ASSIGNMENT AND TRANSPORT.
[2019-10-02] MEDS: LACTATED RINGERS 1,000 ML IV SCH (14:30)
--- NOTE | 2019-10-02 14:59 | NUR ---
REPORT FROM [facility], ASSUME CARE OF PT AT THIS TIME.
--- NOTE | 2019-10-02 15:05 | NUR ---
report given to ROBER Ventura who is assuming care. EEG in progress at bedside. LR infusing at 100mL/hr. pt is somnolent, spontaniously figiting from time to time. responsive to pain stimuli, pulling out etco2 monitor occaisionally. this RN found a police report in pt's belongings, with case number for report filed 09/28/19. MD Horton notified. police dept called, staff refused to disclose identity associated with report. special agent in charge notified, clinical social worker notified. clinical social worker to call police department. no identification or contraband found in pt belongings.
--- NOTE | 2019-10-02 16:06 | NUR ---
PT SLEEPING, NAD. SPOKE WITH SW, POSSIBLE IDENTITY ON PT. SEE BUSINESS ECONOMIST NOTE.
[2019-10-02 18:36] VITALS: BP 116/75
[2019-10-02 18:50] VITALS: BP 122/85
[2019-10-02 20:47] VITALS: BP 116/75
[2019-10-03 00:56] VITALS: BP 102/61
[2019-10-03] MEDS: PLEASE ENTER ALLERGIES MC SCH (02:00)
[2019-10-03] MEDS: PLEASE ENTER HEIGHT AND WEIGHT MC SCH (02:00)
[2019-10-03] MEDS: LACTATED RINGERS 1,000 ML IV SCH (04:37)
[2019-10-03 05:21] LABS: BASOPHILS # (AUTO) 0.04 x10^3/uL (0-0.1); BASOPHILS % (AUTO) 1 % (0-1); EOSINOPHILS % (AUTO) 4 % (1-7); LYMPHOCYTES # (AUTO) 2.09 x10^3/uL (1-3.4); LYMPHOCYTES % (AUTO) 30 % (22-44); MD NO; MEAN CORPUSCULAR HEMOGLOBIN 31.3 pg (27.5-34.5); MEAN CORPUSCULAR HGB CONC 33.3 g/dL (33.2-36.2); MEAN CORPUSCULAR VOLUME 93.9 fL (81-97); MEAN PLATELET VOLUME 8.5 fL (7.4-10.4); MONOCYTES # (AUTO) 0.68 x10^3/uL (0.2-0.8); MONOCYTES % (AUTO) 10 % (2-9); NEUTROPHILS # (AUTO) 3.84 x10^3/uL (1.8-6.8); NEUTROPHILS % (AUTO) 55 % (42-75); PLATELET COUNT 196 x10^3/uL (130-400); RED BLOOD COUNT 4.47 x10^6/uL (4.38-5.82); RED CELL DISTRIBUTION WIDTH 13.9 % (9.4-14.8)
[2019-10-03 05:32] LABS: ALANINE AMINOTRANSFERASE 13 U/L (12-78); ALBUMIN 2.5 g/dL (3.4-5.0); ANION GAP 5 mmol/L (5-15); CALCIUM 9.2 mg/dL (8.5-10.1); CHLORIDE 108 mmol/L (98-107)
[2019-10-03 05:34] LABS: ALKALINE PHOSPHATASE 59 U/L (45-117); BILIRUBIN,TOTAL 0.7 mg/dL (0.2-1.0)
[2019-10-03 07:10] VITALS: BP 109/67
[2019-10-03] MEDS ORDERED: LORazepam 0.5MG TABLET PO PRN (08:30)
[2019-10-03] MEDS ORDERED: LORazepam 1MG TABLET PO PRN ×2 (08:30)
[2019-10-03] MEDS ORDERED: maalox/diphenh/lido/sucralfate 5 ML PO PRN (09:00)
[2019-10-03 09:19] LABS: CREATININE 0.94 mg/dL (0.7-1.3)
[2019-10-03 09:21] LABS: MEAN CORPUSCULAR HEMOGLOBIN 31.4 pg (27.5-34.5); RED BLOOD COUNT 5.13 x10^6/uL (4.38-5.82)
[2019-10-03 14:10] VITALS: BP 122/58
[2019-10-03 19:41] VITALS: BP 122/78
[2019-10-03] MEDS: ACETAMINOPHEN 325 MG TABLET PO PRN (21:18)
[2019-10-04 02:00] VITALS: BP 104/64
[2019-10-04 07:35] VITALS: BP 112/69
[2019-10-04 10:37] LABS: HCT (SEDRATE) 42.7 % (39.2-51.8)
[2019-10-04 10:38] LABS: BASOPHILS # (AUTO) 0.02 x10^3/uL (0-0.1); BASOPHILS % (AUTO) 1 % (0-1); EOSINOPHILS % (AUTO) 6 % (1-7); LYMPHOCYTES # (AUTO) 1.48 x10^3/uL (1-3.4); LYMPHOCYTES % (AUTO) 29 % (22-44); MD NO; MEAN CORPUSCULAR HGB CONC 33.1 g/dL (33.2-36.2); MEAN CORPUSCULAR VOLUME 93.7 fL (81-97); MEAN PLATELET VOLUME 8.3 fL (7.4-10.4); MONOCYTES # (AUTO) 0.45 x10^3/uL (0.2-0.8); MONOCYTES % (AUTO) 9 % (2-9); NEUTROPHILS # (AUTO) 2.88 x10^3/uL (1.8-6.8); NEUTROPHILS % (AUTO) 56 % (42-75); PLATELET COUNT 215 x10^3/uL (130-400); RED BLOOD COUNT 4.55 x10^6/uL (4.38-5.82); RED CELL DISTRIBUTION WIDTH 13.8 % (9.4-14.8)
[2019-10-04 10:48] LABS: ALANINE AMINOTRANSFERASE 16 U/L (12-78); ALBUMIN 2.6 g/dL (3.4-5.0); ANION GAP 4 mmol/L (5-15); CALCIUM 8.7 mg/dL (8.5-10.1); CHLORIDE 111 mmol/L (98-107); CREATININE 0.77 mg/dL (0.7-1.3)
[2019-10-04 10:56] LABS: ALKALINE PHOSPHATASE 57 U/L (45-117); BILIRUBIN,TOTAL 0.3 mg/dL (0.2-1.0); TOTAL PROTEIN 6.1 g/dL (6.4-8.2)
[2019-10-04 12:24] VITALS: BP 113/63
[2019-10-04 19:15] VITALS: BP 143/79
[2019-10-05 01:39] VITALS: BP 132/89
[2019-10-05 06:08] LABS: BASOPHILS # (AUTO) 0.04 x10^3/uL (0-0.1); BASOPHILS % (AUTO) 1 % (0-1); EOSINOPHILS # (AUTO) 0.36 x10^3/uL (0-0.4); EOSINOPHILS % (AUTO) 5 % (1-7); LYMPHOCYTES # (AUTO) 2.09 x10^3/uL (1-3.4); LYMPHOCYTES % (AUTO) 30 % (22-44); MD NO; MEAN CORPUSCULAR HEMOGLOBIN 31.2 pg (27.5-34.5); MEAN CORPUSCULAR HGB CONC 33.3 g/dL (33.2-36.2); MEAN CORPUSCULAR VOLUME 93.7 fL (81-97); MEAN PLATELET VOLUME 8.5 fL (7.4-10.4); MONOCYTES # (AUTO) 0.69 x10^3/uL (0.2-0.8); MONOCYTES % (AUTO) 10 % (2-9); NEUTROPHILS # (AUTO) 3.78 x10^3/uL (1.8-6.8); NEUTROPHILS % (AUTO) 54 % (42-75); PLATELET COUNT 218 x10^3/uL (130-400); RED BLOOD COUNT 4.49 x10^6/uL (4.38-5.82); RED CELL DISTRIBUTION WIDTH 13.6 % (9.4-14.8)
[2019-10-05 06:14] LABS: ALANINE AMINOTRANSFERASE 15 U/L (12-78); ALBUMIN 2.6 g/dL (3.4-5.0); ANION GAP 6 mmol/L (5-15); CALCIUM 8.5 mg/dL (8.5-10.1); CHLORIDE 110 mmol/L (98-107); CREATININE 0.85 mg/dL (0.7-1.3)
[2019-10-05 06:16] LABS: ALKALINE PHOSPHATASE 56 U/L (45-117); BILIRUBIN,TOTAL 0.2 mg/dL (0.2-1.0); TOTAL PROTEIN 6.2 g/dL (6.4-8.2)
[2019-10-05 07:11] VITALS: BP 127/79
[2019-10-05] MEDS: ACETAMINOPHEN 325 MG TABLET PO PRN (08:18)
== END 2019-10-05 14:29 | disposition home or self-care (01) | DRG 92 ==
LOC: ED 13:46 → EDIP 14:00 → MERGE 14:00 → EDBD 14:00 → 4WST 18:18
PROVIDERS: ADMIT Family Medicine; ATTEND Family Medicine
PROC: 0T9B70Z Drainage of Bladder with Drainage Device, Via Natural or Artificial Opening (ICD-10-PCS; principal; 2019-10-02)
DX: G92 Toxic encephalopathy (principal); I69.354 Hemiplegia and hemiparesis following cerebral infarction affecting left non-dominant side; J98.11 Atelectasis; R78.81 Bacteremia; B95.7 Other staphylococcus as the cause of diseases classified elsewhere; R56.9 Unspecified convulsions; Z59.0 Homelessness; Z87.820 Personal history of traumatic brain injury; Z99.3 Dependence on wheelchair
CPT/HCPCS: 36415; 36600; 70450; 70551; 71045; 80048; 80053; 80076; 80307; 81001; 82040; 82607; 82803; 83735; 84145; 85025; 85610; 85651; 85730; 86140; 86592; 87040; 95819; 96374; 99291; G0378; J2310; J7120

== ENCOUNTER 2019-10-07 18:07 | Emergency (ER) | payer MEDICARE ==
[~2019-10-07] VITALS: Ht 170.2 cm; Wt 102.0 kg
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
--- NOTE | 2019-10-07 18:56 | NUR ---
REPORT RECIEVED FROM ROBER TANG. SAFETY MEASURES IN PLACE, PATIENT STATES NO NEEDS AT THIS TIME. PATIENT ON MONITORS
--- NOTE | 2019-10-07 18:59 | NUR ---
Provided bedside report to ROBER Foster. All questions answered. ROBER Foster to assume care of pt at this time.
[2019-10-07 19:24] LABS: ALBUMIN 3.2 g/dL (3.4-5.0); ANION GAP 8 mmol/L (5-15); CALCIUM 9.1 mg/dL (8.5-10.1); CHLORIDE 108 mmol/L (98-107)
[2019-10-07 19:40] LABS: BASOPHILS # (AUTO) 0.03 x10^3/uL (0-0.1); BASOPHILS % (AUTO) 0 % (0-1); EOSINOPHILS # (AUTO) 0.12 x10^3/uL (0-0.4); EOSINOPHILS % (AUTO) 1 % (1-7); LYMPHOCYTES # (AUTO) 1.72 x10^3/uL (1-3.4); LYMPHOCYTES % (AUTO) 16 % (22-44); MD NO; MEAN CORPUSCULAR HEMOGLOBIN 30.9 pg (27.5-34.5); MEAN CORPUSCULAR VOLUME 93.6 fL (81-97); MONOCYTES # (AUTO) 0.76 x10^3/uL (0.2-0.8); MONOCYTES % (AUTO) 7 % (2-9); NEUTROPHILS # (AUTO) 7.94 x10^3/uL (1.8-6.8); NEUTROPHILS % (AUTO) 75 % (42-75); PLATELET COUNT 285 x10^3/uL (130-400); RED BLOOD COUNT 5.04 x10^6/uL (4.38-5.82); RED CELL DISTRIBUTION WIDTH 14.3 % (9.4-14.8)
[2019-10-07] MEDS ORDERED: ACETAMINOPHEN 500 MG TABLET PO ONE (20:00)
[2019-10-07] MEDS ORDERED: SULFAMETH./TRIMETHOPRIM DS 800MG/160MG TABLET PO ONE (20:00)
[2019-10-07] MEDS ORDERED: CEPHALEXIN 500 MG CAPSULE PO ONE (20:00)
[2019-10-07] MEDS ORDERED: CEPHALEXIN 500 MG CAPSULE ONE (20:09)
[2019-10-07] MEDS ORDERED: SULFAMETH./TRIMETHOPRIM DS 800MG/160MG TABLET ONE (20:09)
[2019-10-07] MEDS ORDERED: ACETAMINOPHEN 500 MG TABLET ONE (20:10)
[2019-10-07 20:13] VITALS: BP 102/66
== END 2019-10-07 21:26 | disposition home or self-care (01) ==
LOC: ED 18:37
DX: L03.116 Cellulitis of left lower limb (principal); Z72.9 Problem related to lifestyle, unspecified; R62.7 Adult failure to thrive
CPT/HCPCS: 36415; 80048; 82040; 85025; 99284

== ENCOUNTER 2019-10-13 20:02 | Emergency (ER) | payer MEDICARE ==
[~2019-10-13] VITALS: Ht 170.2 cm; Wt 91.0 kg
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
[2019-10-13 21:00] LABS: BASOPHILS # (AUTO) 0.07 x10^3/uL (0-0.1); BASOPHILS % (AUTO) 1 % (0-1); EOSINOPHILS # (AUTO) 0.26 x10^3/uL (0-0.4); EOSINOPHILS % (AUTO) 3 % (1-7); LYMPHOCYTES # (AUTO) 2.05 x10^3/uL (1-3.4); LYMPHOCYTES % (AUTO) 25 % (22-44); MD NO; MEAN CORPUSCULAR HEMOGLOBIN 31.3 pg (27.5-34.5); MEAN CORPUSCULAR VOLUME 94.9 fL (81-97); MEAN PLATELET VOLUME 7.8 fL (7.4-10.4); MONOCYTES # (AUTO) 0.69 x10^3/uL (0.2-0.8); MONOCYTES % (AUTO) 8 % (2-9); NEUTROPHILS # (AUTO) 5.29 x10^3/uL (1.8-6.8); NEUTROPHILS % (AUTO) 63 % (42-75); PLATELET COUNT 257 x10^3/uL (130-400); RED BLOOD COUNT 4.78 x10^6/uL (4.38-5.82); RED CELL DISTRIBUTION WIDTH 14.9 % (9.4-14.8)
[2019-10-13 21:03] LABS: ALBUMIN 2.9 g/dL (3.4-5.0); ANION GAP 7 mmol/L (5-15); CHLORIDE 111 mmol/L (98-107)
[2019-10-13 21:07] LABS: ALANINE AMINOTRANSFERASE 20 U/L (12-78); ALKALINE PHOSPHATASE 88 U/L (45-117); BILIRUBIN,TOTAL 0.2 mg/dL (0.2-1.0); CREATININE 1.06 mg/dL (0.7-1.3); TOTAL PROTEIN 7.1 g/dL (6.4-8.2)
--- NOTE | 2019-10-14 00:53 | NUR ---
PT RESTING IN BED, PT ON MONITOR WITH NO WANTS OR NEEDS AT THIS TIME. CREDENTIALER WILL CONTINUE TO MONITOR PT CONDITION AND VITALS
[2019-10-14 02:23] VITALS: BP 108/78
== END 2019-10-14 02:25 | disposition home or self-care (01) ==
LOC: ED 22:21
DX: F10.220 Alcohol dependence with intoxication, uncomplicated (principal); Y90.9 Presence of alcohol in blood, level not specified; Z72.9 Problem related to lifestyle, unspecified; I10 Essential (primary) hypertension; F17.200 Nicotine dependence, unspecified, uncomplicated
CPT/HCPCS: 36415; 80053; 80307; 85025; 99284

== ENCOUNTER 2019-10-17 11:22 | Emergency (ER) | payer MEDICARE ==
[~2019-10-17] VITALS: Ht 170.2 cm; Wt 104.5 kg
--- NOTE | 2019-10-17 11:53 | NUR ---
first contactwith pt. pt c/o left foot pain with blister. pt's aox4. resps even and unlabored. denies any other sx. bp/spo2 monitors in place. call light within reach.
--- NOTE | 2019-10-17 12:01 | NUR ---
i am assuming care of this pt from luann (rn) while she has a lunch break. sbar was exchanged at the bedside.
--- NOTE | 2019-10-17 12:32 | NUR ---
blood culture x2 drawn along w piv initiation.
[2019-10-17 12:39] LABS: BASOPHILS % (AUTO) 0 % (0-1); EOSINOPHILS # (AUTO) 0.12 x10^3/uL (0-0.4); EOSINOPHILS % (AUTO) 1 % (1-7); LYMPHOCYTES # (AUTO) 1.76 x10^3/uL (1-3.4); LYMPHOCYTES % (AUTO) 16 % (22-44); MD NO; MEAN CORPUSCULAR HGB CONC 32.5 g/dL (33.2-36.2); MEAN CORPUSCULAR VOLUME 95.4 fL (81-97); MEAN PLATELET VOLUME 7.5 fL (7.4-10.4); MONOCYTES # (AUTO) 0.71 x10^3/uL (0.2-0.8); MONOCYTES % (AUTO) 7 % (2-9); NEUTROPHILS # (AUTO) 8.24 x10^3/uL (1.8-6.8); NEUTROPHILS % (AUTO) 76 % (42-75); PLATELET COUNT 240 x10^3/uL (130-400); RED BLOOD COUNT 4.75 x10^6/uL (4.38-5.82); RED CELL DISTRIBUTION WIDTH 15.3 % (9.4-14.8)
[2019-10-17] MEDS ORDERED: NEOSPORIN OINT. PKT 1 PACKET ONE (12:46)
[2019-10-17 12:50] LABS: ALBUMIN 2.7 g/dL (3.4-5.0); ANION GAP 7 mmol/L (5-15); CHLORIDE 108 mmol/L (98-107); CREATININE 0.86 mg/dL (0.7-1.3)
[2019-10-17 12:55] VITALS: BP 123/75
--- NOTE | 2019-10-17 12:55 | NUR ---
linda wrap applied by emt. pt tolerated well.
--- NOTE | 2019-10-17 13:19 | NUR ---
urinal given per request at this time.
--- NOTE | 2019-10-17 13:47 | NUR ---
Patient given discharge instructions and they have confirmed that they understand the instructions.
== END 2019-10-17 13:47 | disposition home or self-care (01) ==
LOC: ED 13:24
DX: T24.102A Burn of first degree of unspecified site of left lower limb, except ankle and foot, initial encounter (principal); T24.101A Burn of first degree of unspecified site of right lower limb, except ankle and foot, initial encounter; I10 Essential (primary) hypertension; E11.9 Type 2 diabetes mellitus without complications; F17.200 Nicotine dependence, unspecified, uncomplicated; Z59.0 Homelessness; Y92.89 Other specified places as the place of occurrence of the external cause
CPT/HCPCS: 36415; 80048; 82040; 83605; 85025; 99283

== ENCOUNTER 2019-10-19 14:20 | Emergency (ER) | payer MEDICARE ==
[~2019-10-19] VITALS: Ht 170.2 cm; Wt 90.0 kg
[2019-10-19 14:26] VITALS: BP 95/61
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
--- NOTE | 2019-10-19 15:04 | NUR ---
PER MD, PT TO BE MTF.
== END 2019-10-19 15:54 | disposition home or self-care (01) ==
LOC: ED 15:40
DX: F10.120 Alcohol abuse with intoxication, uncomplicated (principal); I10 Essential (primary) hypertension; E11.9 Type 2 diabetes mellitus without complications; F17.210 Nicotine dependence, cigarettes, uncomplicated; Y90.9 Presence of alcohol in blood, level not specified
CPT/HCPCS: 99283; 99406

== ENCOUNTER 2019-10-21 22:22 | Emergency (ER) | payer MEDICARE ==
[~2019-10-21] VITALS: Ht 170.2 cm; Wt 90.0 kg
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
[2019-10-21] MEDS ORDERED: THIAMINE 100 MG/ML, 2ML IM ONE (23:00)
[2019-10-21] MEDS ORDERED: THIAMINE 100 MG/ML, 2ML ONE (23:35)
--- NOTE | 2019-10-22 00:45 | NUR ---
pt resting in bed, pt denied any wants or needs at this time. pt on monuitor and rn will continue to monitor pt
[2019-10-22 01:25] VITALS: BP 127/92
== END 2019-10-22 02:58 | disposition home or self-care (01) ==
LOC: ED 22:44
DX: F10.129 Alcohol abuse with intoxication, unspecified (principal); Z72.9 Problem related to lifestyle, unspecified; R00.0 Tachycardia, unspecified; I10 Essential (primary) hypertension; E11.9 Type 2 diabetes mellitus without complications; Y90.9 Presence of alcohol in blood, level not specified
CPT/HCPCS: 96372; 99283; J3411

== ENCOUNTER 2019-12-02 11:50 | Emergency (ER) | payer MEDICARE ==
[~2019-12-02] VITALS: Ht 170.2 cm; Wt 90.0 kg
[~2019-12-02 11:50] MED LIST changes: +ACET325T26 PO; +CEFA1SYR6 IV; +DOCU100C33 PO; +ENOX40SY4 SQ; +FAMO20TA7 PO; +GABA300C PO; +LORA-445 PO; +MELA5TAB14 PO; +METH500T7 PO; +MULT-484 PO; +NICO-486 TD; +OXYC5TAB3 PO; +Senna/Docusate PO
[2019-12-02] MEDS ORDERED: HALOPERIDOL 5 MG/ML ONE (12:17)
[2019-12-02] MEDS ORDERED: LORazepam 2 MG/ML, 1ML ONE (12:18)
[2019-12-02] MEDS ORDERED: DIPHENHYDRAMINE 50 MG/ML, 1ML ONE (12:18)
--- NOTE | 2019-12-02 12:24 | NUR ---
CAR MANAGER: PT BECAME AGGRESSIVE, YELLING AND SCREAMING, RECEIVED ORDERS FOR MEDICATIONS, SECURITY CALLED. PT PLACED IN 4 POINT RESTRAINTS PER VERBAL ORDER FOR MD.
[2019-12-02] MEDS ORDERED: LORazepam 2 MG/ML, 1ML IVPush ONE (12:30)
[2019-12-02] MEDS ORDERED: HALOPERIDOL 5 MG/ML IM ONE (12:30)
[2019-12-02] MEDS ORDERED: DIPHENHYDRAMINE 50 MG/ML, 1ML IM ONE (12:30)
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
[2019-12-02 12:38] LABS: BASOPHILS % (AUTO) 0 % (0-1); EOSINOPHILS % (AUTO) 5 % (1-7); LYMPHOCYTES % (AUTO) 31 % (22-44); MEAN CORPUSCULAR HEMOGLOBIN 31.2 pg (27.5-34.5); MEAN CORPUSCULAR HGB CONC 33.3 g/dL (33.2-36.2); MONOCYTES % (AUTO) 8 % (2-9); NEUTROPHILS % (AUTO) 56 % (42-75); PLATELET COUNT 215 x10^3/uL (130-400); RED BLOOD COUNT 5.19 x10^6/uL (4.38-5.82); RED CELL DISTRIBUTION WIDTH 14.1 % (9.4-14.8)
[2019-12-02 12:45] LABS: MD NO
[2019-12-02 12:48] LABS: CALCIUM 9.3 mg/dL (8.5-10.1); CHLORIDE 109 mmol/L (98-107)
[2019-12-02 12:54] LABS: ALANINE AMINOTRANSFERASE 20 U/L (12-78); ALBUMIN 3.7 g/dL (3.4-5.0); ALKALINE PHOSPHATASE 69 U/L (45-117); ANION GAP 8 mmol/L (5-15); BILIRUBIN,TOTAL 0.4 mg/dL (0.2-1.0); CREATININE 0.94 mg/dL (0.7-1.3); TOTAL PROTEIN 7.6 g/dL (6.4-8.2)
[2019-12-02 12:56] LABS: SALICYLATE LEVEL < 1.7 mg/dL (2.8-20.0)
--- NOTE | 2019-12-02 13:04 | NUR ---
X-RAY IN ROPOM NOW TO SCAN PT
[2019-12-02] MEDS ORDERED: LORA-445 PO (13:28)
--- NOTE | 2019-12-02 13:30 | NUR ---
PT REMOVED FROM RESTRAINTS HE IS RESTING CALMLY IN BED AT THIS TIME. PT WAS HAVING X-RAYS DONE WITH SECURITY ASSISTING. PT REMAINED CALM THROUGHOUT X-RAYS. WILL CONTINUE TO MONITOR.
[2019-12-02] MEDS ORDERED: ASPI-650 PO (13:32)
[2019-12-02] MEDS ORDERED: SERT50TA28 PO (13:32)
[2019-12-02] MEDS ORDERED: ATOM40CA PO (13:32)
[2019-12-02] MEDS ORDERED: TRAM50TA2 PO (13:32)
[2019-12-02] MEDS ORDERED: BACL5TAB PO (13:32)
--- NOTE | 2019-12-02 14:22 | NUR ---
Break RN note: Pt resting in bed with eyes closed, resp even and unlabored, NADN.
--- NOTE | 2019-12-02 15:32 | NUR ---
pt resting calmly in bed. pt vss. will continue to monitor.
--- NOTE | 2019-12-02 16:45 | NUR ---
BREAK RN: PT MOVED TO ROOM 1 FOR SECURE ROOM. PT REMAINS SLEEPING, EYES CLOSED, RESPIRAITONS EVEN AND UNLABORED. PT RESPONDS TO VERBAL STIMULI. PT REMAINS CONNECTED TO BP AND O2 MONITORS. PT IN VIEW OF SITTER. BELONGINGS IN SECURITY LOCKER.
--- NOTE | 2019-12-02 16:48 | NUR ---
REPORT GIVEN TO PAT RICHTER. PT MOVED TO ROOM 1. PT BELONGINGS PLACED IN CLOTHING CLOSET. PT WHEELCHAIR IS LABELED AND PLACED IN HALLWAY. SECURITY STATED THEY ARE UNABLE TO STORE WHEELCHAIR AT THIS TIME.
--- NOTE | 2019-12-02 17:00 | NUR ---
PT REPORT FROM ROBER STEWART. PT CARE TO BE ASSUMED. PT ASLEEP. SITTER OUTSIDE ROOM
--- NOTE | 2019-12-02 17:30 | NUR ---
PT ASLEEP, SIDE RAILS UP X2, SITTER OUTSIDE ROOM
--- NOTE | 2019-12-02 18:18 | NUR ---
DINNER TRAY DELIVERED. PT ASLEEP, EVEN CHEST RISE & FALL NOTED. EAR PLUGS NOTED IN EARS BILATERALLY. PT OPENS EYES TO VERBAL.
--- NOTE | 2019-12-02 20:00 | NUR ---
PT REPORT TO ROBER PARSONS. PT CARE TRANSFERRED.
--- NOTE | 2019-12-02 20:02 | NUR ---
REPORT RECEIVED FROM KAREEM RICHTER. PT SLEEPING ON RQUEBRADILLAS CONNECTED TO MONITORING, SITTER OUTSIDE ROOM AND 1 GARAGE DOOR DOWN FOR SAFETY.
--- NOTE | 2019-12-02 20:56 | NUR ---
URINE COLLECTED AND SENT TO LAB. PT SLEEPING ON GURNEY W/ SITTER OUTSIDE ROOM AND 1 GARAGE DOOR DOWN FOR SAFETY. RESP EVEN AND UNLABORED, NADN.
[2019-12-02] MEDS: MELATONIN 3 MG TABLET PO SCH (21:00)
[2019-12-02 21:09] LABS: MICROSCOPIC NOT IND
[2019-12-02 21:21] LABS: AMPHETAMINE SCREEN, URINE Negative (Negative); BARBITURATE SCREEN, URINE Negative (Negative); BENZODIAZEPINE SCREEN, URINE Negative (Negative); CANNABINOID SCREEN, URINE Negative (Negative); COCAINE SCREEN, URINE Negative (Negative); METHADONE SCREEN, URINE Negative (Negative); OPIATE SCREEN, URINE Negative (Negative)
--- NOTE | 2019-12-02 21:43 | NUR ---
PT SLEEPING ON GURNEY, CONNECTED TO MONITORING. 1 GARAGE DOOR DOWN AND SITTER OUTSIDE ROOM FOR SAFETY. JULIO ROCHE.
--- NOTE | 2019-12-02 23:05 | NUR ---
PT SLEEPING ON GURNEY, CONNECTED TO MONITORING. 1 GARAGE DOOR DOWN AND SITTER OUTSIDE ROOM FOR SAFETY. CHEST RISE AND FALL OBSERVED. JULIO ROCHE.
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
--- NOTE | 2019-12-02 23:42 | NUR ---
PAPA RN: PACKET FAXED TO [facility], [facility], [facility], [facility], AND [facility].
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
--- NOTE | 2019-12-03 00:01 | NUR ---
REPORT GIVEN TO ARTURO RICHTER FROM [facility]. WILL CALL BACK IF ACCEPTS.
--- NOTE | 2019-12-03 00:02 | NUR ---
PT SITTING UP ON HOSPITAL BED EATING SAFETY DIET TRAY. RESP EVEN AND UNLABORED, JULIO.
--- NOTE | 2019-12-03 00:04 | NUR ---
PAPA RN: [facility] STATES UNBLE TO ACCEPT PT DUE TO PT UNABLE TO PERFORM ADL'S
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
--- NOTE | 2019-12-03 00:45 | NUR ---
PT REMOVED FROM MONITORING. GARAGE DOORS DOWNX2 AND SITTER OUTSIDE OF ROOM FOR SAFETY. PT SLEEPING ON HOSPITAL BED. RESP EVEN AND UNLABORED, JULIO.
--- NOTE | 2019-12-03 02:14 | NUR ---
PT SLEEPING ON HOSPITAL BED W/ GARAGE DOORS DOWNX2 AND SITTER OUTSIDE ROOM FOR SAFETY. RESP EVEN AND UNLABORED, NADN.
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
--- NOTE | 2019-12-03 03:31 | NUR ---
PT SLEEPING ON HOSPITAL BED W/ GARAGE DOORS DOWNX2 AND SITTER OUTSIDE ROOM FOR SAFETY. RESP EVEN AND UNLABORED, NADN.
--- NOTE | 2019-12-03 05:39 | NUR ---
PT SLEEPING ON HOSPITAL BED W/ GARAGE DOORS DOWNX2 AND SITTER OUTSIDE ROOM FOR SAFETY. RESP EVEN AND UNLABORED, NADN.
--- NOTE | 2019-12-03 06:25 | NUR ---
PT SLEEPING ON HOSPITAL BED W/ GARAGE DOORS DOWNX2 AND SITTER OUTSIDE ROOM FOR SAFETY. RESP EVEN AND UNLABORED, NADN.
--- NOTE | 2019-12-03 07:06 | NUR ---
REPORT GIVEN TO ROSARIO RICHTER. PT RESTING ON HOSPITAL BED W/ GARAGE DOORS DOWN AND SITTER OUTSIDE FOR SAFETY. RESP EVEN AND UNLABORED, JULIO.
--- NOTE | 2019-12-03 07:38 | NUR ---
PT RESTING CALMLY IN BED, WITH EYES CLOSED. NO STATED NEEDS AT THIS TIME. SITTER AT DOOR FOR OBS.
--- NOTE | 2019-12-03 08:04 | NUR ---
Security called by rn charge, security here now. Pt being assited back to room.
[2019-12-03] MEDS ORDERED: DIPHENHYDRAMINE 50 MG/ML, 1ML ONE (08:05)
[2019-12-03] MEDS ORDERED: HALOPERIDOL 5 MG/ML ONE (08:05)
[2019-12-03] MEDS ORDERED: LORazepam 2 MG/ML, 1ML ONE (08:06)
--- NOTE | 2019-12-03 08:20 | NUR ---
PT HAS JUMPED OUT OF BED, IS THROWING HIMSELF AROUND ON FLOOR, YELLING AND HAS REMOVED HIS GOWN. PT BANGING HEAD ON WALL. PT NOT RESPONDING TO STAFF REQUEST TO STOP THIS BEHAVIOR. ERP AWARE, ORDER FOR MEDS PLACED. SECURITY HERE TO ASSIST WITH MEDICATING PT. PT ROOM CLEANED UP FROM DEBRI. PT PLACED IN 2 POINT RESTRAINTS AT THIS TIME FOR SAFETY OF HIMSELF AND STAFF. WILL PLACE PT ON VITALS MONITORS. PT IN CAMERA ROOM.
[2019-12-03] MEDS ORDERED: HALOPERIDOL 5 MG/ML IM PRN (08:30)
[2019-12-03] MEDS: SERTRALINE 50MG TABLET PO SCH (08:30)
[2019-12-03] MEDS ORDERED: DIPHENHYDRAMINE 50 MG/ML, 1ML IM ONE (08:30)
[2019-12-03] MEDS ORDERED: LORazepam 2 MG/ML, 1ML IM ONE (08:30)
--- NOTE | 2019-12-03 09:10 | NUR ---
RESTRAINTS REMOVED FROM PT AT THIS TIME. PT IS RESTING CALMLY IN BED. SITTER AT DOOR. VITALS MONITORS PLACED ON PT.
--- NOTE | 2019-12-03 10:10 | NUR ---
BP READING LOW FOR PT HE IS LAYING ON LEFT SIDE. PT REPOSITIONED, BUT DID NOT HOLD POSITION FOR BETTER BP READING. WILL CONTINUE TO MONITOR AND WILL REPOSITION PT. SITTER AT DOOR.
--- NOTE | 2019-12-03 11:20 | NUR ---
PT RESTING CALMLY IN BED AT THIS TIME. SITTE AT DOOR.
--- NOTE | 2019-12-03 12:30 | NUR ---
BP CUFF MKOVED TO OTHER ARM PT CONTINUING TO LAY ON LEFT SIDE CAUSING RIGHT ARM BP CUF TO GIVE LOW READINGS. BP REEADINS IMPROVED WITH BP CUF REPOSITION. SITTER AT DOOR. PT EASILY AROUSED WTIH VERBAL STIMULI.
--- NOTE | 2019-12-03 13:21 | NUR ---
pt resting calmly in bed. no stated needs at this time. sitter at door. pt remains on monitors for vitals.
--- NOTE | 2019-12-03 14:21 | NUR ---
PT MORE ALERT AT THIS TIME. PT ATE PUDDING AND DRANK SOME WATER. WILL CONTINUE TO MONITOR.
--- NOTE | 2019-12-03 15:11 | NUR ---
PT RESTING CALMLY IN BED. NO STATED NEEDS AT THIS TIME. WILL CONTINUE TO MONITOR.
--- NOTE | 2019-12-03 16:21 | NUR ---
PT BEING REPOSITIONED IN BED WITH SITTER ASSIST. PT RESTING CALMLY IN BED CURRENTLY. WILL CONTINUE TO MONITOR.
[2019-12-03] MEDS ORDERED: LORazepam 0.5MG TABLET ONE ×2 (17:09→22:08)
[2019-12-03] MEDS: LORazepam 0.5MG TABLET PO PRN ×2 (17:12→22:15)
--- NOTE | 2019-12-03 17:25 | NUR ---
PT PLACED ON BED BOO FOR STOOL. SITTER ABLE TO ASSIST PT WITH GETTING ON AND OFF BEDPAN. PT BECOMING AGITATED, YELLING INSTRUCTIONS AT SITTER. PT STARTED FLAILING ARMS AROUND AND KICKING AT SHEETS. PT ASKED IF HE WOULD LIKE SOMETHING TO HELP HIM RELAX. PT AGREED, AND MEDICATED PER EMAR. PT GIVEN MEAL TRAY. WILL CONTINUE TO MONITOR.
--- NOTE | 2019-12-03 21:18 | NUR ---
assumed patient care, patient resting in bed, given requested snacks and fluids, was cooperative with vitals signs, no acute distress noted, respirations even and unlabored, sitter in the hallway
[2019-12-03] MEDS: MELATONIN 3 MG TABLET PO SCH ×2 (21:48→22:15)
--- NOTE | 2019-12-03 22:16 | NUR ---
patient resting in bed, given cup for his dentures, no other needs at this time, no acute distress noted, sitter in hallway, will continue to monitor patient for safety.
--- NOTE | 2019-12-03 23:17 | NUR ---
Patient resting in his bed, respirations even and unlabored, no needs at this time, sitter in the hallway, will continue to monitor patient for safety.
--- NOTE | 2019-12-04 00:24 | NUR ---
Patient sleeping in bed, respirations even and unlabored, rg sitter in hallway, will continue to monitor patient for safety
--- NOTE | 2019-12-04 01:30 | NUR ---
patient sleeping in his bed, respirations even and unlabored, rg, sitter in hallway, will continue to monitor patient for safety.
--- NOTE | 2019-12-04 02:48 | NUR ---
Received report from Willie RICHTER, patient awake in bed, requested rg le, sitter in hallway, will continue to monitor patient.
--- NOTE | 2019-12-04 04:37 | NUR ---
Patient sleeping in bed, respirations even and unlabored, sitter in view of patient, will continue to monitor patient.
--- NOTE | 2019-12-04 05:24 | NUR ---
patient awake, watching tv in his room, given requested water to drink, no needs at this time, rg, sitter in hallway, will continue to monitor patient.
--- NOTE | 2019-12-04 06:13 | NUR ---
patient still asleep in bed, respirations even and unlabored, nadn, sitter in hallway, will continue to monitor patient.
--- NOTE | 2019-12-04 07:30 | NUR ---
Pt got up and put himself on the floor. Tech saw this happen and reported that it wasn't a fall, pt grabbed the bedrails and lowered himself to the floor. He was naked and agitated. Security was called. He was assisted back to bed and a gown was put on him. He says he did this because he wanted denture adhesive. Pt was verbally de-escalated and restraints were not necessary at this time. He was instruced how to use the call light and the bed alarm was activated. Pt contracts for safety at this time.
--- NOTE | 2019-12-04 08:00 | NUR ---
Pt states that he needs to have a BM. He attempted to use the bedpan but was not able to. He was assisted to the bathroom via w/c and he had a BM in the toilet. He was able to clean himself.
--- NOTE | 2019-12-04 08:00 | NUR ---
Pt is oriented to name and location. He knows he resides at [facility] and wants to go back there. He doesn't understand why he is here. He doesn't know the date. He rates anxiety as 8, depression 8/. He denies SI, thoughts of harming self or others and hallucinations but he does endorse paranoia.
--- NOTE | 2019-12-04 08:30 | NUR ---
Pt fed himself breakfast while sitting up in his w/c. He took his Zoloft, which he had previously been refusing. He was medicated with Ativan 0.5 mg for anxiety rated 8/10.
[2019-12-04] MEDS: SERTRALINE 50MG TABLET PO SCH (08:44)
[2019-12-04] MEDS: LORazepam 0.5MG TABLET PO PRN (08:44)
--- NOTE | 2019-12-04 08:46 | NUR ---
THROUGHPUT RN: TAHIR FROM [facility] NOTIFIED OF PT.
--- NOTE | 2019-12-04 09:01 | NUR ---
Pt was assisted backto bed.
--- NOTE | 2019-12-04 10:06 | NUR ---
Pt is awake, watching TV in no apparent distress.
--- NOTE | 2019-12-04 11:00 | NUR ---
Pt is requesting Nicotine patch. Order for patch obtained from [employer] APRN.
--- NOTE | 2019-12-04 11:06 | NUR ---
THROUGHPUT RN: UPDATES FAX[facility] TO [facility]
[2019-12-04] MEDS ORDERED: NICOTINE 21 MG/24 HR PATCH.TD24 ONE (11:10)
--- NOTE | 2019-12-04 11:22 | NUR ---
Senior Miguel denied patient.
[2019-12-04] MEDS ORDERED: NICOTINE 21 MG/24 HR PATCH.TD24 TD ONE (11:30)
--- NOTE | 2019-12-04 12:15 | NUR ---
Nurse to nurse report given to Shirley at [facility]. She will staff this pt with the doctors to determine if he is appropriate for their facility.
--- NOTE | 2019-12-04 12:35 | NUR ---
Pt set up to feed himself lunch.
--- NOTE | 2019-12-04 12:37 | NUR ---
Pt reports that Tramadol helped his pain. His pain level is now 4/10 down from 8/10.
--- NOTE | 2019-12-04 13:17 | NUR ---
Pt is trying to climb out of bed. He says he wants to go sit on the sidewalk. He was verbally redirected.
--- NOTE | 2019-12-04 13:41 | NUR ---
THROUGHPUT RN: RANDY DECLINED PT.
--- NOTE | 2019-12-04 14:02 | NUR ---
Pt appears to be asleep in no distress.
--- NOTE | 2019-12-04 14:57 | NUR ---
REPORT TAKEN FROM ROBER REID. ASSUMED CARE
--- NOTE | 2019-12-04 16:40 | NUR ---
NURSE TO NURSE REPORT GIVEN TO [facility]. ANSWERED ALL QUESTIONS
--- NOTE | 2019-12-04 17:55 | NUR ---
PT PROVIDED WITH MEAL TRAY.
--- NOTE | 2019-12-04 18:08 | NUR ---
PT RESTING IN RNEY. EYES CLOSED. RESPIRATIONS EVEN AND UNLABORED. NAD. VSS
--- NOTE | 2019-12-04 18:49 | NUR ---
BEDSIDE REPORT FROM ORBER HILTON. PT SLEEPING IN HOSPITAL BED, RESPIRATIONS EVEN AND UNLABORED. NADN. IN VIEW OF THE SITTER.
--- NOTE | 2019-12-04 19:38 | NUR ---
PT YELLING. ROBER CEDENO TO BEDSIDE. PT STATED HE NEEDED TO GO TO THE BATHROOM. PT ASSISTED TO BATHROOM USING HIS WHEELCHAIR. PT RETURNED TO BED, AND IS SLEEPING AGAIN.
[2019-12-04] MEDS: MELATONIN 3 MG TABLET PO SCH (21:00)
--- NOTE | 2019-12-05 01:21 | NUR ---
Break RN: Patient back to room after assisted in shower by dental technician instructor and ED RN. Sitter at door, patient on hospital bed, room secured.
--- NOTE | 2019-12-05 01:34 | NUR ---
COVERING ROBER STEWART FOR BREAK. ASSISTED PT FROM SHOWER.
--- NOTE | 2019-12-05 01:49 | NUR ---
Report received from ROBER Mario. This RN to assume care.
--- NOTE | 2019-12-05 02:48 | NUR ---
Patient sleeping in hospital bed. Respirations even and unlabored. Room secured, belongings locked in cabinet. Sitter outside.
--- NOTE | 2019-12-05 03:36 | NUR ---
Patient sleeping in hospital bed. Respirations even and unlabored. Room secured, belongings locked in cabinet. Sitter outside.
--- NOTE | 2019-12-05 04:20 | NUR ---
Patient sleeping in hospital bed. Respirations even and unlabored. Room secured, belongings locked in cabinet. Sitter outside.
--- NOTE | 2019-12-05 05:26 | NUR ---
Patient sleeping in hospital bed. Respirations even and unlabored. Room secured, belongings locked in cabinet. Sitter outside.
--- NOTE | 2019-12-05 06:31 | NUR ---
Patient sleeping in hospital bed. Respirations even and unlabored. Room secured, belongings locked in cabinet. Sitter outside.
--- NOTE | 2019-12-05 06:54 | NUR ---
Report to ROBER Smart. Patient care transferred.
--- NOTE | 2019-12-05 06:56 | NUR ---
REPORT RECEIVED FROM NOC RN FOR TRANSFER OF PATIENT CARE.
--- NOTE | 2019-12-05 08:10 | NUR ---
PATIENT RESTING IN GURNEY WITH EYES CLOSED, RESPIRATIONS EVEN AND UNLABORED. SUICIDE PRECAUTIONS IN PLACE, SITTER AT DOORWAY.
[2019-12-05] MEDS ORDERED: SERTRALINE 50MG TABLET ONE (08:31)
[2019-12-05] MEDS: SERTRALINE 50MG TABLET PO SCH (08:32)
--- NOTE | 2019-12-05 08:42 | NUR ---
PATIENT MEDICATED PER eMAR, BREAKFAST TRAY PROVIDED, NO SIGNS OF ACUTE DISTRESS, SITTER AT DOORWAY, NO FURTHER NEEDS AT THIS TIME.
--- NOTE | 2019-12-05 09:27 | NUR ---
PATIENT REQUESTING TO SPEAK WITH AZALEA COLLINS. THROUGHPUT RN NOTIFIED DENNIS.
--- NOTE | 2019-12-05 09:33 | NUR ---
AZALEA COLLINS AT BEDSIDE TO SPEAK WITH PATIENT.
--- NOTE | 2019-12-05 10:24 | NUR ---
PATIENT RESTING IN GURNEY WATCHING TV, NO SIGNS OF ACUTE DISTRESS, SITTER AT DOORWAY, LEGAL HOLD PRECAUTIONS IN PLACE.
--- NOTE | 2019-12-05 11:18 | NUR ---
PATIENT RESTING IN HOSPITAL BED, RESPIRATIONS EVEN AND UNLABORED, NO SIGNS OF ACUTE DISTRESS, SITTER AT DOORWAY, LEGAL HOLD PRECAUTIONS IN PLACE.
[2019-12-05] MEDS ORDERED: LORazepam 0.5MG TABLET ONE (12:37)
[2019-12-05] MEDS: LORazepam 0.5MG TABLET PO PRN (12:40)
--- NOTE | 2019-12-05 12:56 | NUR ---
PATIENT GIVEN 0.5 MG ATIVAN TAB, LUNCH TRAY PROVIDED, LEGAL HOLD PRECAUTIONS IN PLACE, SITTER AT DOORWAY, NO SIGNS OF ACUTE DISTRESS.
--- NOTE | 2019-12-05 15:55 | NUR ---
PATIENT RESTING IN HOSPITAL BED WITH EYES CLOSED, RESPIRATIONS EVEN AND UNLABORED, SIDE RAILS UP, SITTER AT DOORWAY, LEGAL HOLD PRECAUTIONS IN PLACE.
--- NOTE | 2019-12-05 16:01 | NUR ---
Marta from [facility] has refused patient. States patient was refused as it was a "team decision."
--- NOTE | 2019-12-05 16:44 | NUR ---
THROUGHPUT RN: SLAVA FROM [facility] TO COME ASSESS PT TOMORROW 12/06/2019 FOR PLACEMENT TO FACILITY ON MONDAY WHEN BED BECOMES AVAILABLE. DENNIS, PSYCH ENTRY LEVEL AUTOMOTIVE TECHNICIAN TO KEEP PT ON LEGAL HOLD UNTIL SAFE DISCHARGE.
--- NOTE | 2019-12-05 17:43 | NUR ---
PATIENT RESTING IN HOSPITAL BED WATCHING TV, SIDE RAILS UP, SITTER AT DOORWAY, LEGAL PRECAUTIONS IN PLACE. DINNER TRAY ORDERED.
--- NOTE | 2019-12-05 18:04 | NUR ---
SPOKE WITH KITCHEN ABOUT FOOD TRAY, THEY WILL BRING NOW.
--- NOTE | 2019-12-05 18:10 | NUR ---
DINNER TRAY PROVIDED TO PATIENT, SITTER AT DOORWAY, LEGAL HOLD PRECAUTIONS IN PLACE, NO FURTHER NEEDS AT THIS TIME.
--- NOTE | 2019-12-05 18:52 | NUR ---
REPORT RECIEVED FROM ROBER RANGEL. PT RESTING ON RICKEY HALL IN HALLWAY WITHIN LINE OF SIGHT, ROOM SECURED.
--- NOTE | 2019-12-05 18:53 | NUR ---
REPORT GIVEN TO ROBER GABRIEL FOR TRANSFER OF PATIENT CARE.
--- NOTE | 2019-12-05 20:21 | NUR ---
PT RESTING ON RICKEY HALL IN HALLWAY WITHIN LINE OF SIGHT. ROOM SECURED.
[2019-12-05] MEDS: MELATONIN 3 MG TABLET PO SCH (21:00)
[2019-12-05] MEDS ORDERED: ACETAMINOPHEN 500 MG TABLET ONE (21:03)
--- NOTE | 2019-12-05 21:28 | NUR ---
PT MEDICATED PER MAR FOR PAIN, PROVIDED WATER, DENIES ADDITIONAL NEEDS AT THIS TIME. SITTER IN HALLWAY WITHIN LINE OF SIGHT, ROOM SECURED.
[2019-12-05] MEDS ORDERED: ACETAMINOPHEN 500 MG TABLET PO ONE (21:30)
--- NOTE | 2019-12-06 00:31 | NUR ---
PT RESTING ON GURNEY WATCHING TV, SITTER IN HALLWAY WITHIN LINE OF SIGHT, ROOM SECURED.
--- NOTE | 2019-12-06 02:41 | NUR ---
PT RESTING ON GURNEY, UP TO BEDSITE TO USE URINAL. DENIES FURTHER NEEDS AT THIS TIME. SITTER IN HALLWAY WITHIN LINE OF SIGHT, ROOM SECURED.
--- NOTE | 2019-12-06 04:11 | NUR ---
PT RESTING ON GURNEY, RESPIRATIONS EVEN AND NONLABORED. ROOM SECURED, SITTER IN HALLWAY WITHIN LINE OF SIGHT.
--- NOTE | 2019-12-06 06:27 | NUR ---
PT PROVIDED DECAF COFFEE AND ADDITIONAL WATER. DENIES FURTHER NEEDS AT THIS TIME. ROOM SECURED, SITTER IN HALLWAY WITHIN LINE OF SIGHT.
--- NOTE | 2019-12-06 06:54 | NUR ---
REPORT GIVEN TO ROBER HANNA.
[2019-12-06] MEDS: SERTRALINE 50MG TABLET PO SCH (08:25)
--- NOTE | 2019-12-06 08:33 | NUR ---
PT GIVEN MEAL TRAY, MEDICATED PER APR. SI PRECAUTIONS OBSERVED, NO OTHER NEEDS NOTED.
--- NOTE | 2019-12-06 10:17 | NUR ---
PT ASSISTED TO BR VIA WHEELCHAIR, PT WITH BM. BACK TO AT THIS TIME, NO FURTHER NEEDS. PT COOPERATIVE
--- NOTE | 2019-12-06 12:32 | NUR ---
MEAL TRAY PROVIDED. SI PRECAUTIONS REMAIN IN PLACE, NO OTHER NEEDS
--- NOTE | 2019-12-06 14:30 | NUR ---
PT RESTING, MEAL TRAY COMPLETE. SITTER PRESENT
--- NOTE | 2019-12-06 15:17 | NUR ---
THROUGHPUT NURSE: SPOKE WITH ALEE PORTER REGARDING PLACEMENT ISSUES. PT WILL BE GOING BACK TO [facility] ON Monday12-09-2019.
[2019-12-06] MEDS: LORazepam 0.5MG TABLET PO PRN (16:19)
--- NOTE | 2019-12-06 16:25 | NUR ---
PT GIVEN .5 ATIVAN TAB. PT BECOMING AGITATED AT TIMES. NOW RESTING COMFORTABLE. GOT UP TO WALK AROUND ROOM. SITTER PRESENT.
--- NOTE | 2019-12-06 17:30 | NUR ---
ASSISTED PT TO SHOWER. NEW LINENS PROVIDED. PT STATES HE FEELS MUCH BETTER AFTER THE SHOWER. DINNER PROVIDED. RICKEY FRANCO
--- NOTE | 2019-12-06 18:53 | NUR ---
bedside report from Immanuel RICHTER. pt care transferred at this time. pt nad, resting on gurney, even and unlabored respirations, gross neuro intact, appears comfortable, denies additional questions or needs at this time. wctm. sitter in line of sight. si precautions in place, pt legal hold.
--- NOTE | 2019-12-06 20:00 | NUR ---
PT RESTING ON GURNEY, WITHIN LAST HOUR PT REPEATEDLY PRESSING CALL LIGHT REQUIRING ASSISTANCE AND ADDITIONAL REQUESTS. PT PROVIDED WATER, CRACKERS, LINENS, SOCKS, AND ICE. ADDITIONAL QUESTIONS ANSWERED APPROPRIATELY, LIMITS SET, PT INFORMED WE CAN ONLY PROVIDE THESE SNACKS AND NO ADDITIONAL ONES UNTIL BREAKFAST TIME. PT NAD, EVEN AND UNLABORED RESPIRATIONS, SITTER IN LINE OF SIGHT AND SITTER INFORMED OF LIMITS. WCTM.
--- NOTE | 2019-12-06 20:53 | NUR ---
PT RESTING ON GURNEY, NAD, EYES CLOSED, EVEN AND UNLABORED RESPIRATIONS, APPEARS COMFORTABLE, SITTER IN LINE OF SIGHT, SI PRECAUTIONS IN PLACE, WCTM.
[2019-12-06] MEDS: MELATONIN 3 MG TABLET PO SCH (21:00)
--- NOTE | 2019-12-06 22:00 | NUR ---
LATE ENTRY D/T PT CARE: PT RESTING ON GURNEY, NAD, EYES CLOSED, EVEN AND UNLABORED RESPIRATIONS, APPEARS COMFORTABLE, SITTER IN LINE OF SIGHT, SI PRECAUTIONS IN PLACE, WCTM.
--- NOTE | 2019-12-06 23:13 | NUR ---
Hosea jose in EDM - 12/06/19 at 2314 by ASA LATE ENTRY D/T PT CARE: PT RESTING ON GURNEY, NAD, EYES CLOSED, EVEN AND UNLABORED RESPIRATIONS, APPEARS COMFORTABLE, SITTER IN LINE OF SIGHT, SI PRECAUTIONS IN PLACE, WCTM.
--- NOTE | 2019-12-06 23:14 | NUR ---
PT RESTING IN GURNEY, EVEN AND UNLABORED RESPIRATIONS, NAD, EYES CLOSED, SITTER IN LINE OF SIGHT, SI PRECAUTIONS IN PLACED, WCTM.
--- NOTE | 2019-12-07 00:46 | NUR ---
PT RESTING ON GURNEY, NAD, EYES CLOSED, NO CHANGE IN CONDITION, WCTM. SITTER IN LINE OF SIGHT, SI PRECAUTIONS IN PLACE, L2K
--- NOTE | 2019-12-07 01:55 | NUR ---
pt resting on hospital bed, no change in condition, nad, eyes closed, even and unlabored respirations, sitter in line of sight, wctm.
--- NOTE | 2019-12-07 03:09 | NUR ---
pt resting on hospital bed, no change in condition, nad, eyes closed, even and unlabored respirations, sitter in line of sight, wctm.
--- NOTE | 2019-12-07 04:36 | NUR ---
pt resting on hospital bed, no change in condition, nad, eyes closed, even and unlabored respirations, sitter in line of sight, wctm.
--- NOTE | 2019-12-07 04:37 | NUR ---
breakfast tray ordered for pt.
--- NOTE | 2019-12-07 05:48 | NUR ---
pt awake and resting on gurxavier, nad, medicated per apr, informed breakfast trays come around [id number] and that we would bring it in when it came, pt denies additional needs at this time. bed is lowest, si precautions in place, sitter in line of sight, wctm.
[2019-12-07] MEDS ORDERED: ACETAMINOPHEN 325 MG TABLET PO ONE ×2 (06:00→08:30)
--- NOTE | 2019-12-07 06:43 | NUR ---
PT AWAKE, SITTING UP ON HOSPITAL BED WATCHING TV, SITTER IN LINE OF SIGHT, SI PRECAUTIONS IN PLACE, NAD, DENIES ADDITIONAL NEEDS, WCTM. L2K
--- NOTE | 2019-12-07 06:59 | NUR ---
BEDSIDE REPORT RECEIVED FROM KAREN RICHTER.
--- NOTE | 2019-12-07 06:59 | NUR ---
bedside report to khoa rn, pt care transferred at this time.
--- NOTE | 2019-12-07 07:15 | NUR ---
PT UPRIGHT ON HOSPITAL BED. PT STATES "I WANT A SHOWER THE MORNING I LEAVE AND GET TAKEN TO ANOTHER FACILITY". PT DEMANDED "AFTER THAT SHOWER, I WILL BE PUT IN A WHEELCHAIR BEFORE I LEAVE." PT EDUCATED ON CAUSES FOR SKIN BREAKDOWN AND SUGGESTED RETURNING TO BED IF WAIT TIME WOULD BE MORE THAN A COUPLE OF HOURS. PT CONTINUED TO BECOME AGITATED STATING "THIS BED IS DIRTY, IT HAS SHINGLES, BED BUGS AND LICE". PT EDUCATED ON CLEANING PROCEDURES OF BEDS/EQUIPMENT BETWEEN PT'S. THIS RN REASSURED PT WE WOULD DO WHAT WE CAN TO ACCOMODATE HIS WISHES ON DAY OF D/C, PROVIDING IT REMAIN IN HIS BEST INTEREST AND KEPT HIM SAFE. PT ALSO STATES "THE ONLY PAIN MEDICATION THAT WORKS IN TYLENOL 3" AND DEMANDS TO BE GIVEN THIS. DR. SKY NOTIFIED AND ORDERED OTC TYLENOL. PT AGREEABLE TO TOPICS DISCUSSED AT THIS TIME. SAFETY AND SI PRECAUTIONS IN PLACE. SAFETY VILLARREAL DOWN. SITTER WITIN VIEW. NO ADDITIONAL NEEDS AT THIS TIME. WILL CONTINUE TO MONITOR.
--- NOTE | 2019-12-07 08:15 | NUR ---
PT SUPINE ON HOSPITAL BED WITH EYES CLOSED, NAD. PT DENIES ANY NEEDS AT THIS TIME, DENIES BREAKFAST TRAY AT THIS TIME. SAFETY AND SI PRECAUTIONS IN PLACE. SAFETY VILLARREAL DOWN. SITTER IN VIEW. WILL CONTINUE TO MONITOR.
[2019-12-07] MEDS ORDERED: ACETAMINOPHEN 325 MG TABLET ONE (08:48)
[2019-12-07] MEDS ORDERED: SERTRALINE 50MG TABLET ONE (08:48)
[2019-12-07] MEDS: SERTRALINE 50MG TABLET PO SCH (09:00)
--- NOTE | 2019-12-07 09:00 | NUR ---
PT SITTING UPRIGHT ON HOSPITAL BED. NAD, VSS. PT PROVIDED BREAKFAST TRAY AND TV TURNED ON PER PT REQUEST. PT COOPERATIVE AND COMMUNICATING APPROPRIATELY. PT DENIES ANY NEEDS AT THIS TIME. SAFETY AND SI PRECAUTIONS IN PLACE. SITTER IN VIEW. WILL CONTINUE TO MONITOR.
--- NOTE | 2019-12-07 10:06 | NUR ---
PT SITTING UPRIGHT ON HOSPITAL BED. NAD, VSS. PT WATCHING TV. PT COOPERATIVE AND COMMUNICATING APPROPRIATELY. PT CONSUMED ALL OF BREAKFAST TRAY. PT DENIES ANY NEEDS AT THIS TIME. SAFETY AND SI PRECAUTIONS IN PLACE. SITTER IN VIEW. WILL CONTINUE TO MONITOR.
--- NOTE | 2019-12-07 11:02 | NUR ---
PT SUPINE ON HOSPITAL BED WITH TV ON. PT DENIES ANY NEEDS AT THIS TIME. SAFETY PRECAUTIONS IN PLACE, SAFETY GATE DOWN AND SITTER WITHIN VIEW. WILL CONTINUE TO MONITOR.
--- NOTE | 2019-12-07 12:00 | NUR ---
AZALEA FIDELINA AT BEDSIDE. PT SUPINE ON HOSPITAL BED WITH TV ON AND GIVEN LUNCH TRAY. PT DENIES ANY NEEDS AT THIS TIME. SAFETY PRECAUTIONS IN PLACE, SAFETY GATE DOWN AND SITTER WITHIN VIEW. WILL CONTINUE TO MONITOR.
--- NOTE | 2019-12-07 12:44 | NUR ---
BREAK RN. PT GIVEN MEAL TRAY.
--- NOTE | 2019-12-07 13:20 | NUR ---
REPORT RECIEVED FROM JESSICA RICHTER, ASSUMED CARE OF PT AT THIS TIME
[2019-12-07] MEDS: LORazepam 2 MG/ML, 1ML IM PRN (15:42)
--- NOTE | 2019-12-07 15:44 | NUR ---
PT NOW GETTING AGITATED KEEPS TRYING TO CRAWL OUT OF BED, PT VERY UNSTEADY, WAS EDUCATED EARLIER REGARDING RISK FOR FALL AND INJURY BY PREVIOUS RN. PT BED REMOVED AND MATRESS PLACED ON GROUND WITH HELP FROM SECURITY. PT NOW THRASHING ABOUT ON MATTRESS AND TRYING TO BAND HIS HEAD ON THE DOOR. ERMD UPDATED, ORDERS RECIEVED FOR PRN MEDICATION, PT MEDICATED PER MAR WITH HELP FROM SECURITY. LIGHTS DIMMED, PT CALMER, WILL CTM
--- NOTE | 2019-12-07 17:57 | NUR ---
PT SLEEPING ON MATRESS AT THIS TIME. VISIBLE CHEST RISE AND FALL NOTED, ALLOW PT REST. FOOD AVAILABLE FOR PT WHEN HE WAKES
--- NOTE | 2019-12-07 18:47 | NUR ---
bedside report from benson raya, pt care transferred at this time. Pt NAD, eyes closed, even and unlabored respirations, resting on mattress, lights dimmed for comfort, SI precautions in place, sitter in line of sight, WCTM.
--- NOTE | 2019-12-07 19:52 | NUR ---
pt resting on mattress, provided meal tray per request, nad, denies additional needs, sitter in line of sight, wctm
--- NOTE | 2019-12-07 20:50 | NUR ---
LATE ENTRY D/T PT CARE: Pt RESTING ON MATRESS, NAD, even and unlabored respirations, resting on mattress, lights dimmed for comfort, SI precautions in place, sitter in line of sight, WCTM.
[2019-12-07] MEDS: MELATONIN 3 MG TABLET PO SCH (21:00)
--- NOTE | 2019-12-07 21:51 | NUR ---
Pt NAD, eyes closed, even and unlabored respirations, resting on mattress, lights dimmed for comfort, SI precautions in place, sitter in line of sight, WCTM.
--- NOTE | 2019-12-07 22:20 | NUR ---
pt resting on mattress, nad, provided snacks and medicated per mar, denies additional needs, boundaries discussed, si precautions in place, sitter in line of sight. wctm. L2K
--- NOTE | 2019-12-08 00:24 | NUR ---
pt nad, resting on mattress, eyes closed, even and unlabored respirations, lights off for comfort, sitter in line of sight, SI precautions in place. wctm.
--- NOTE | 2019-12-08 01:08 | NUR ---
pt nad, resting on mattress, eyes closed, even and unlabored respirations, lights off for comfort, sitter in line of sight, SI precautions in place. wctm.
--- NOTE | 2019-12-08 02:42 | NUR ---
pt nad, resting on mattress, eyes closed, even and unlabored respirations, lights off for comfort, sitter in line of sight, SI precautions in place. wctm.
[2019-12-08] MEDS: LORazepam 2 MG/ML, 1ML IM PRN (04:25)
--- NOTE | 2019-12-08 04:25 | NUR ---
PT BECAME EXTREMELY AGGITATED, SCREAMING IN ROOM INCOHERENTLY AND UNABLE TO BE DEESCALATED VERBALLY BY RN. PT THROWING WATER CUPS AND KNOCKING EVERYTHING WITHIN REACH OVER YELLING "IM OVER LIVING LIKE THIS, THIS PLACE IS A DAMN FPC!" PT MEDICATED PER APR, SI PRECAUTIONS IN PLACE, SITTER IN LINE OF SIGHT, DARWIN.
--- NOTE | 2019-12-08 04:59 | NUR ---
pt continuing to bang head against wall and scream "ARGHHHHH" repeatedly. pt medicated per apr. emelina KUMAR.
[2019-12-08] MEDS ORDERED: ZIPRASIDONE 20 MG INJ IM ONE ×3 (05:00→14:30)
--- NOTE | 2019-12-08 05:35 | NUR ---
PT NOW RESTING ON MATTRESS, NAD, EVEN AND UNLABORED RESPIRATIONS, APPEARS COMFORTABLE, SITTER IN LINE OF SIGHT, SI PRECAUTIONS IN PLACE, WCTM.
--- NOTE | 2019-12-08 06:30 | NUR ---
Yoni RN: Assisted in pt care. Pulse ox check after meds. 94% HR 68. Resp even and unlabored. Pt sleeping at this time. Room remains secured. Sitter in place.
--- NOTE | 2019-12-08 06:58 | NUR ---
bedside report to Edgard RICHTER. pt care transferred at this time.
--- NOTE | 2019-12-08 07:14 | NUR ---
REPORT TAKEN AND PATIENT CARE ASSUMED. HE IS ON BED ON FLOOR SLEEPING. PATIENT RESPONDS TO QUESTIONS APPROPRIATELY AND THEN IS QUICKLY BACK ASLEEP.
--- NOTE | 2019-12-08 09:02 | NUR ---
patient ate breakfast. he is calm at this time, and laid back down to rest.
[2019-12-08] MEDS ORDERED: SERTRALINE 50MG TABLET ONE (09:15)
[2019-12-08] MEDS: SERTRALINE 50MG TABLET PO SCH (09:23)
[2019-12-08] MEDS ORDERED: LORazepam 0.5MG TABLET PO PRN (11:00)
[2019-12-08] MEDS ORDERED: QUETIAPINE 25MG TABLET PO PRN (11:00)
--- NOTE | 2019-12-08 11:22 | NUR ---
ORDERED PATIENT A LUNCH TRAY
--- NOTE | 2019-12-08 12:22 | NUR ---
PATIENT SLEEPING QUIETLY
--- NOTE | 2019-12-08 13:14 | NUR ---
PATIENT ATE ALL OF LUNCH
--- NOTE | 2019-12-08 14:17 | NUR ---
PATIENT BEGAN SCREAMING OUT AND ROLLING AROUND ON FLOOR NAKED SCREAMING. GOT ORDER AND GAVE MEDICATION TO HELP
--- NOTE | 2019-12-08 15:52 | NUR ---
patient calmer at this time. resting.
[2019-12-08] MEDS ORDERED: LORazepam 1MG TABLET ONE (16:43)
--- NOTE | 2019-12-08 16:45 | NUR ---
GAVE PT ATIVAN PRN REQUESTED AND ORDERED TO KEEP HIM CALM
--- NOTE | 2019-12-08 17:21 | NUR ---
ATE ALL OF DINNER
--- NOTE | 2019-12-08 19:06 | NUR ---
REPORT TO ED, RN. SBAR. PATIENT CARE RELIQUISHED. PATIENT IN ROOM, CALM, SITTER OUTSIDE ROOM
--- NOTE | 2019-12-08 19:55 | NUR ---
AWAKE VITALS SIGNS TAKEN PATIENTS IS COOPERATIVE REQUESTED SNACKS PUDDING GIVEN WITH PAPER SPOON "I LIKE TO KNOW WHERE MY SOCIAL SECURITY CARD" TOLD THE PATIENT WILL LOOK FOR IT IN THE MORNING WILL CONTINUE TO MONITOR WILL SITTER CLOSE WATCH BY THE DOOR.
--- NOTE | 2019-12-08 20:35 | NUR ---
Appears asleep continue to monitor with line of sight sitter outside the room.
[2019-12-08] MEDS: MELATONIN 3 MG TABLET PO SCH (21:42)
--- NOTE | 2019-12-08 21:44 | NUR ---
Continue to sleep line of sight monitoring by sitter .
--- NOTE | 2019-12-08 22:20 | NUR ---
Took night medication with no incident continue to monitor line of sight .
[2019-12-08] MEDS ORDERED: QUETIAPINE 25MG TABLET ONE (23:20)
--- NOTE | 2019-12-08 23:26 | NUR ---
Awake requested medicine for relaxation and sleep seroquel given po "i hope that [facility] will take me back " informed the patient that need to talk to case assembler tomorrow and if he behaves tonight no injection given big possibility that they will take him back.
--- NOTE | 2019-12-09 01:26 | NUR ---
Requested to turn on his TV so he can watch show no other issue presented will continue to monitor. sitter on line sight.
--- NOTE | 2019-12-09 02:28 | NUR ---
Sleeping soundly at this time on line monitoring continued.
--- NOTE | 2019-12-09 03:46 | NUR ---
Reposition self continue to sleep line of sight monitoring continued.
--- NOTE | 2019-12-09 04:23 | NUR ---
continue to sleep breathing even unlabored cntinue monitoring for safety.
--- NOTE | 2019-12-09 06:56 | NUR ---
Report given to Kimberly RICHTER ER nurse.
--- NOTE | 2019-12-09 07:00 | NUR ---
PT RESTING ON MATTRESS ON THE GROUND. SITTER IN FULL VIEW OF THE PT. EQUIPMENT SECURED BEHIND PULL DOWN DOOR.
--- NOTE | 2019-12-09 08:43 | NUR ---
PT ASSISTED TO W/C AND PROVIDED SHOWER. RETURNED TO ROOM AND PLACED ON GURNEY. PT PROVIDED BREAKFAST. PT COOPERATIVE AT THIS TIME AND AGREES TO REMAIN COOPERATIVE. PT IN IMMEDIATE VIEW OF SITTER.
[2019-12-09] MEDS ORDERED: SERTRALINE 50MG TABLET ONE (09:00)
[2019-12-09] MEDS: SERTRALINE 50MG TABLET PO SCH (09:04)
--- NOTE | 2019-12-09 10:55 | NUR ---
AZALEA COLLINS AND BLANCA, SECURITY SOLUTIONS ARCHITECT AT BEDSIDE REEVALUATING PT. DISCUSSED PLAN OF CARE. PER DENNIS, PT TO BE REMOVED FROM HOLD. SITTER RELEASED FROM DUTIES. ALSO PER DENNIS, PT COMPLAINED OF ANXIETY AND 7/10 PAIN ON LEFT SIDE. TO BE MEDICATED FOR ANXIETY.
[2019-12-09] MEDS ORDERED: MELA1TAB22 PO (11:29)
[2019-12-09] MEDS ORDERED: MELA3TAB31 PO (11:33)
[2019-12-09] MEDS ORDERED: TRAM50TA2 PO (11:35)
--- NOTE | 2019-12-09 11:54 | NUR ---
PT MOVED TO HOSPITAL BED
[2019-12-09] MEDS ORDERED: NICOTINE 21 MG/24 HR PATCH.TD24 TD ONE (12:00)
[2019-12-09] MEDS ORDERED: BACLOFEN 10 MG TABLET PO PRN (12:00)
[2019-12-09] MEDS ORDERED: QUETIAPINE 25MG TABLET PO PRN (12:00)
[2019-12-09] MEDS ORDERED: LORazepam 1MG TABLET ONE ×2 (12:04→21:51)
[2019-12-09] MEDS ORDERED: NICOTINE 21 MG/24 HR PATCH.TD24 ONE (12:05)
[2019-12-09] MEDS: LORazepam 1MG TABLET PO PRN ×2 (12:10→21:55)
--- NOTE | 2019-12-09 12:13 | NUR ---
PT MEDICATED PER APR. PT TOLD AZALEA COLLINS, HE HAD 7/10 PAIN ON HIS ENTIRE LEFT SIDE AND HE WAS FEELING ANXIOUS. CONFERRED WITH DR MARTINI ABOUT PAIN MEDICATION NEEDS AND PT RECEIVED MEDICATION.
--- NOTE | 2019-12-09 12:53 | NUR ---
PT MEDICATED PER MAR FOR LEFT SIDE SPASMS.
--- NOTE | 2019-12-09 14:20 | NUR ---
report from eulalia raya. as
--- NOTE | 2019-12-09 14:44 | NUR ---
Hosea jose in [facility] - 12/09/19 at 1757 by MONIQUE resting in bed nad sitter in place. as
--- NOTE | 2019-12-09 14:44 | NUR ---
RESTING IN BED NAD.
--- NOTE | 2019-12-09 15:32 | NUR ---
RESTING IN BED NAD.
--- NOTE | 2019-12-09 16:08 | NUR ---
Hosea jose in [facility] - 12/09/19 at 1757 by MONIQUE PT RESTING IN BED NAD SITTER IN PLACE.
--- NOTE | 2019-12-09 16:08 | NUR ---
RESTING IN BED NAD.
--- NOTE | 2019-12-09 17:00 | NUR ---
PT RESTING IN BED NAD.
--- NOTE | 2019-12-09 17:58 | NUR ---
RESTING IN BED NAD DINNER ORDERED.
[2019-12-09] MEDS ORDERED: ACETAMINOPHEN 500 MG TABLET ONE (18:05)
[2019-12-09] MEDS ORDERED: ACETAMINOPHEN 325 MG TABLET PO ONE (18:30)
--- NOTE | 2019-12-09 18:50 | NUR ---
given dinner. resting in bed nad. as
--- NOTE | 2019-12-09 19:03 | NUR ---
report to zach raya. as
--- NOTE | 2019-12-09 19:10 | NUR ---
REPORT FROM MARQUES RICHTER
--- NOTE | 2019-12-09 20:01 | NUR ---
AT 193 THIS RN AND LAVATORY ATTENDANT WERE IN HALLWAY NEAR ROOM 1 DISCUSSING ANOTHER PT WHEN SW NOTICED THIS PT ON THE GROUND NEXT TO HIS BED WAVING AT HER FOR ASSISTANCE. RN AND SW RUSHED INTO ROOM. VSS, PT DENIED LOC AND DENIED HITTING HIS HEAD. PT ASSISTED BACK INTO BED BY RN AND EXECUTIVE COMPENSATION ANALYST. PT HAS HX OF CVA WITH L SIDED PARALYSIS. PT A&0X3 AT BASELINE. Addendum: 12/09/19 at 2138 by FABIAN AT 1929 THIS RN AND LAVATORY ATTENDANT WERE IN HALLWAY NEAR ROOM 1 DISCUSSING ANOTHER PT WHEN SW NOTICED THIS PT ON THE GROUND NEXT TO HIS BED WAVING AT HER FOR ASSISTANCE. CODE YELLOW CALLED. RN AND SW RUSHED INTO ROOM. VSS, PT DENIED LOC AND DENIED HITTING HIS HEAD. PT ASSISTED BACK INTO BED BY RN AND EXECUTIVE COMPENSATION ANALYST. PT HAS HX OF CVA WITH L SIDED PARALYSIS. PT A&0X3 AT BASELINE. MD NOTIFIED AT 194 AND PHARMACIST NOTIFIED AT 1949. BUSINESS PRACTICES OFFICER ALSO AWARE. PT STATED THE TV VOLUME WAS LOW AND HE WANTED TO MAKE SURE IT WAS PLUGGED IN SO HE COULD TURN VOLUME UP WHICH IS WHY HE ATTEMPTED TO GET OUT OF BED. PT WAS COOPERATIVE WITH STAFF AND APOLOGIZED MULTIPLE TIMES FOR GETTING OUT OF BED. EDUCATION PROVIDED ABOUT RISKS AND INJURIES OF FALLING AND THAT IT COULD DELAY PT FOR GETTING BACK TO [facility]. PT STATES HE WANTS TO GO BACK AND THAT HE WILL USE THE CALL LIGHT AND BE PATIENT WITH STAFF AND ANSWERING. PT PLEASANT AND COOPERATIVE. BED RAILS UP X3, BED LOCKED AND IN LOWEST POSITION. RED SOCKS ON PATIENT. VSS
[2019-12-09] MEDS: MELATONIN 3 MG TABLET PO SCH (21:00)
--- NOTE | 2019-12-09 21:28 | NUR ---
KEIRY MELÉNDEZ - Fall Risk Medication(s) present and receiving anticoagulants.
--- NOTE | 2019-12-09 21:29 | NUR ---
KEIRY MELÉNDEZ - Fall Risk Medication(s) present and receiving anticoagulants.
--- NOTE | 2019-12-09 21:39 | NUR ---
PT RESTING IN HOSPITAL BED WATCHING TV.
[2019-12-09] MEDS ORDERED: ACETAMINOPHEN 325 MG TABLET ONE (21:51)
--- NOTE | 2019-12-09 22:30 | NUR ---
PT RESTING IN HOSPITAL BED WATCHING TV. NO NEEDS AT THIS TIME, VSS
--- NOTE | 2019-12-09 23:27 | NUR ---
RESTING IN HOSPITAL BED WATCHING TV, NO NEEDS AT THIS TIME, VSS
--- NOTE | 2019-12-10 00:40 | NUR ---
PT WATCHING TV, SNACKS GIVEN PER REQUEST
--- NOTE | 2019-12-10 02:06 | NUR ---
PT RESTING IN HOSPITAL BED. WATCHING TV, NO NEEDS AT THIS TIME. CALL LIGHT WITHIN REACH
--- NOTE | 2019-12-10 03:00 | NUR ---
PT IN HOSPITAL BED RESTING. NO NEEDS AT THIS TIME
--- NOTE | 2019-12-10 04:00 | NUR ---
PT RESTING IN HOSPITAL BED. NO NEEDS AT THIS TIME
--- NOTE | 2019-12-10 05:00 | NUR ---
PT SLEEPING. NO NEEDS
--- NOTE | 2019-12-10 06:00 | NUR ---
pt sleeping, no needs at this time
--- NOTE | 2019-12-10 07:08 | NUR ---
REPORT GIVEN TO LIDA RICHTER.
--- NOTE | 2019-12-10 07:44 | NUR ---
PT HELPED TO THE RESTROOM
--- NOTE | 2019-12-10 07:45 | NUR ---
DIET TRAY ORDERED
--- NOTE | 2019-12-10 07:46 | NUR ---
AWATING SW, PT CALM AND COOPERATIVE
--- NOTE | 2019-12-10 13:06 | NUR ---
REPORT RECIEVED FROM WILIAN RICHTER, ASSUMED CARE OF PT AT THIS TIME. PT IN STANDING AT SIDE OF BED, REDIRECTED TO SIT IN BED AND FALL RISK PRECAUTIONS, PT JOSE DE JESUS, OFFERED FOOD, WILL PROVIDE PT WITH TRAY
--- NOTE | 2019-12-10 13:34 | NUR ---
PT DECLINES NEEDS AT THIS TIME. CALL LIGHT ON LAP.
[2019-12-10 13:35] VITALS: BP 119/74
[2019-12-10] MEDS ORDERED: LORazepam 1MG TABLET ONE (14:46)
[2019-12-10] MEDS ORDERED: SERTRALINE 50MG TABLET ONE (14:46)
[2019-12-10] MEDS: LORazepam 1MG TABLET PO PRN (14:49)
[2019-12-10] MEDS: SERTRALINE 50MG TABLET PO SCH (14:49)
--- NOTE | 2019-12-10 15:39 | NUR ---
PT GIVEN WATER AND GRAHM CRAKERS AND PUDDING PER REQUEST
--- NOTE | 2019-12-10 15:39 | NUR ---
REPORT GIVEN TO SUKHI RICHTER AT [facility]
--- NOTE | 2019-12-10 16:25 | NUR ---
PT LEFT WITH MEDICAL TRANSPORT, ALL BELONGINGS VERIFIED ON TRANSFER.
== END 2019-12-10 16:44 | disposition left against medical advice (07) ==
LOC: ED 14:22
DX: F32.9 Major depressive disorder, single episode, unspecified (principal); R45.851 Suicidal ideations; E11.9 Type 2 diabetes mellitus without complications; I10 Essential (primary) hypertension
CPT/HCPCS: 36415; 71045; 73502; 73564; 80053; 80307; 81003; 85025; 96372; 96374; 99285; J1200; J1630; J2060

== ENCOUNTER 2019-12-13 09:53 | Emergency (ER) | payer MEDICARE ==
[~2019-12-13] VITALS: Ht 167.6 cm; Wt 86.0 kg
[~2019-12-13 09:53] MED LIST changes: +ASPI-650 PO; +ATOM40CA PO; +BACL5TAB PO; +MELA1TAB22 PO; +MELA3TAB31 PO; +SERT50TA28 PO
--- NOTE | 2019-12-13 10:00 | NUR ---
pt transported per cassi stewart, no complaints of pain, denies SI, legal hold per rpd, found with bottle in hand trying to cut himself, all belongings placed in 2 bags and secure locker.
--- NOTE | 2019-12-13 10:44 | NUR ---
Pt asked about home meds he is or is supposed to be taking. Pt reports "Nah".
--- NOTE | 2019-12-13 12:09 | NUR ---
Pt provided urinal and encouraged to provide urine sample as soon as he is able. Pt verbalizes understanding.
[2019-12-13 12:11] LABS: ALBUMIN 3.8 g/dL (3.4-5.0); ANION GAP 11 mmol/L (5-15); BASOPHILS % (AUTO) 1 % (0-1); CALCIUM 9.1 mg/dL (8.5-10.1); CHLORIDE 114 mmol/L (98-107); EOSINOPHILS % (AUTO) 2 % (1-7); LYMPHOCYTES % (AUTO) 33 % (22-44); MEAN CORPUSCULAR HEMOGLOBIN 30.9 pg (27.5-34.5); MEAN CORPUSCULAR HGB CONC 33.3 g/dL (33.2-36.2); MEAN PLATELET VOLUME 8.4 fL (7.4-10.4); MONOCYTES % (AUTO) 6 % (2-9); NEUTROPHILS % (AUTO) 58 % (42-75); PLATELET COUNT 222 x10^3/uL (130-400); RED BLOOD COUNT 5.59 x10^6/uL (4.38-5.82); RED CELL DISTRIBUTION WIDTH 13.8 % (9.4-14.8)
[2019-12-13 12:14] LABS: SALICYLATE LEVEL < 1.7 mg/dL (2.8-20.0)
[2019-12-13 12:15] LABS: ALANINE AMINOTRANSFERASE 18 U/L (12-78); ALKALINE PHOSPHATASE 85 U/L (45-117); BILIRUBIN,TOTAL 0.3 mg/dL (0.2-1.0); CREATININE 0.56 mg/dL (0.7-1.3); TOTAL PROTEIN 8.1 g/dL (6.4-8.2)
[2019-12-13 12:20] LABS: MD NO
[2019-12-13 12:25] VITALS: BP 121/87
--- NOTE | 2019-12-13 12:25 | NUR ---
BREAK RN FOR PRIMARY RN'S YULIET AND JENNY. PT RESTING IN POSITION OF COMFORT. DENIES ANY PAIN AND NEED TO USE RESTROOM. ALL NEEDS MET AND ADDRESSED. FALL PRECAUTIONS IN PLACE. SITTER AT DOOR FOR CONTINUOUS SAFETY OBSERVATION. SAFE AND SECURE ENVIRONMENT PROVIDED IN MONITORED ROOM. GARAGE DOORS DOWN. ALL BELONINGS REMAIN LOCKED IN CABINET FOR SAFETY. PT PROVIDED URINAL FOR UA SAMPLE, DENIES URGE AT THIS TIME. VSS.
--- NOTE | 2019-12-13 13:06 | NUR ---
REPORT AND TRANSFER OF CARE BACK TO PRIMARY RN'S JENNY AND YULIET
--- NOTE | 2019-12-13 13:12 | NUR ---
Pt resting in bed with eyes closed, resp even and unlabored, NADN.
--- NOTE | 2019-12-13 13:51 | NUR ---
Teresa POOLN in to evaluate pt. Pt cleared by CALCULATING MACHINE MECHANIC. GERMAN to see to attempt to find placement for pt. Pt to be dc'd after SW consult.
[2019-12-13 14:18] LABS: AMPHETAMINE SCREEN, URINE Negative (Negative); BARBITURATE SCREEN, URINE Negative (Negative); BENZODIAZEPINE SCREEN, URINE Negative (Negative); CANNABINOID SCREEN, URINE Positive (Negative); COCAINE SCREEN, URINE Negative (Negative); METHADONE SCREEN, URINE Negative (Negative); OPIATE SCREEN, URINE Negative (Negative)
--- NOTE | 2019-12-13 15:19 | NUR ---
Pt provided meal tray. All pt belongings returned to pt. Pt educated that he may dress, we are awaiting dc paperwork for him.
== END 2019-12-13 16:29 | disposition home or self-care (01) ==
LOC: ED 11:36
DX: T14.90XA Injury, unspecified, initial encounter (principal); F10.10 Alcohol abuse, uncomplicated; F39 Unspecified mood [affective] disorder; I10 Essential (primary) hypertension; E11.9 Type 2 diabetes mellitus without complications; R45.851 Suicidal ideations; Z59.0 Homelessness; Z72.9 Problem related to lifestyle, unspecified; X83.8XXA Intentional self-harm by other specified means, initial encounter; Y93.89 Activity, other specified; Y92.89 Other specified places as the place of occurrence of the external cause; Y99.8 Other external cause status; Y90.0 Blood alcohol level of less than 20 mg/100 ml
CPT/HCPCS: 36415; 80053; 80307; 85025; 99283; 99285

== ENCOUNTER 2019-12-25 18:42 | Emergency (ER) | payer MEDICARE ==
[~2019-12-25] VITALS: Ht 182.9 cm; Wt 80.0 kg
[2019-12-25 18:50] VITALS: BP 150/82
--- NOTE | 2019-12-25 18:56 | NUR ---
REPORT FROM ROBER DORAN
--- NOTE | 2019-12-25 19:12 | NUR ---
PER BLANCA EXTENSION ASSOCIATE, ONCE PT IS SOBER ENOUGH, SEND TO [facility] IN A TAXI CAB. PT ATTACHED TO SP02 MONITOR. RESTING ON GURNEY WITH EYES CLOSED, RESPIRATIONS EVEN AND UNLABORED. SITTER AT DOORWAY FOR FREQUENT CHECKS.
--- NOTE | 2019-12-25 22:09 | NUR ---
PT A+OX4. ABLE TO DRESS SELF AND HELPED INTO HIS OWN WHEELCHAIR. PT PROVIDED TAXI CAB VOUCHER TO LOCAL HOMELESS RESIDENTIAL AT PT REQUEST.
== END 2019-12-25 22:11 | disposition home or self-care (01) ==
LOC: ED 19:12
DX: F10.120 Alcohol abuse with intoxication, uncomplicated (principal); R45.1 Restlessness and agitation; Y90.9 Presence of alcohol in blood, level not specified
CPT/HCPCS: 99283

== ENCOUNTER 2019-12-26 03:53 | Emergency (ER) | payer MEDICARE ==
[~2019-12-26] VITALS: Ht 170.2 cm; Wt 95.0 kg
[2019-12-26 03:57] VITALS: BP 105/72
--- NOTE | 2019-12-26 04:15 | NUR ---
Patient yelling at senior copywriter to get his social security reinstated. Patient con't to yell while senior copywriter is trying to talk to him. Provider aware of behavior.
--- NOTE | 2019-12-26 04:28 | NUR ---
Unable to obtain discharge vitals patient was screaming and yellilng at software writer, not specificlly saying anything just making loud noises. Patient put himself back into his wheelchair and wheeled out of the ER.
== END 2019-12-26 04:30 ==
LOC: ED 04:24
DX: F10.120 Alcohol abuse with intoxication, uncomplicated (principal); F17.210 Nicotine dependence, cigarettes, uncomplicated; Z72.9 Problem related to lifestyle, unspecified; Y90.0 Blood alcohol level of less than 20 mg/100 ml
CPT/HCPCS: 99283; 99406

== ENCOUNTER 2019-12-26 07:47 | Emergency (ER) | payer MEDICARE ==
[~2019-12-26] VITALS: Ht 170.2 cm; Wt 95.0 kg
[2019-12-26 08:04] VITALS: BP 123/86
--- NOTE | 2019-12-26 08:07 | NUR ---
PT BIBA FOR BEING IN THE MIDDLE OF THE STREET IN HIS WHEELCHAIR. PT YELLING "LET THE CARS HIT ME" PATIENT STATES HE DRANK 2 PINTS VODKA. PT DISCHARGED FROM THIS ER APPROX 0400 FOR SAME. WHEN ASKED IF PT INTENDS TO HARM HIS SELF, PT LAUGHS AND STATES "DUH" PT TO SECURE RM AT THIS TIME, ALL BELONGINGS REMOVED, PLACED IN LOCKER
--- NOTE | 2019-12-26 10:46 | NUR ---
PER PROVIDER PT TO MTF. MEAL TRAY ORDERED FOR PT, PT NOT INTERESTED IN MEAL AT THIS TIME. FALLING BACK TO SLEEP.
--- NOTE | 2019-12-26 11:30 | NUR ---
FIDELINA RINCON IN TO MICHELLE PT
--- NOTE | 2019-12-26 11:59 | NUR ---
PT DC'D PER ERMD AFTER CLEARENCE FROM PSYCH AFTERSCHOOL BABYSITTER. PT ASSISTED WITH DRESSING, ALL BELONGINGS GIVEN TO PT. PT AGITATED ON DC, PT OFFERED TAXI VOUCHER, WILL NOT PROVIDE RN WITH ADDRESS, PT THEN OFFERED A BUS PASS PT REFUSES THIS, PT THEN WHEELED HIMSELF OUT TO THE FRONT AND BEGINS TO SMOKE, PT INSTRUCTED NOT TO SMOKE ON HOSPITAL GROUNDS, PT THEN BECOMES INCREASINGLY AGITATED, THREW DC INSTRUCTIONS AT MOTION PICTURES CARTOONIST, TRYING TO SPIN IN [place] IN WHEELCHAIR IN ATTEMPTS TO FALL OUT. SECURITY CALLED TO ESCORT PT OFF PROPERTY.
[2019-12-26] MEDS ORDERED: IBUPROFEN 800 MG TABLET PO ONE (12:00)
== END 2019-12-26 12:09 | disposition home or self-care (01) ==
LOC: ED 07:56
DX: F10.220 Alcohol dependence with intoxication, uncomplicated (principal); Z72.9 Problem related to lifestyle, unspecified; Y90.0 Blood alcohol level of less than 20 mg/100 ml
CPT/HCPCS: 99283

== ENCOUNTER 2019-12-26 16:03 | Emergency (ER) | payer MEDICARE ==
[~2019-12-26] VITALS: Ht 170.2 cm; Wt 94.0 kg
--- NOTE | 2019-12-26 17:08 | NUR ---
Pt arrives via EMS for SI. Pt found in wheelchair in [facility] stating that he wants to by wheeling himself into traffic, stating drinking two pints of vodka. Pt on gurney screaming, combative, yelling obscenities. Once in room, pt more cooperative. Poor historian, difficut to understand. States HX of TBI. Denies taking medications.
[2019-12-26 17:27] LABS: BASOPHILS % (AUTO) 1 % (0-1); EOSINOPHILS % (AUTO) 0 % (1-7); LYMPHOCYTES % (AUTO) 29 % (22-44); MEAN CORPUSCULAR HEMOGLOBIN 32.2 pg (27.5-34.5); MEAN CORPUSCULAR HGB CONC 34.5 g/dL (33.2-36.2); MEAN PLATELET VOLUME 7.7 fL (7.4-10.4); MONOCYTES % (AUTO) 16 % (2-9); NEUTROPHILS % (AUTO) 54 % (42-75); PLATELET COUNT 222 x10^3/uL (130-400); RED BLOOD COUNT 5.47 x10^6/uL (4.38-5.82); RED CELL DISTRIBUTION WIDTH 14.1 % (9.4-14.8)
[2019-12-26 17:29] LABS: MD NO
[2019-12-26 17:37] LABS: ALBUMIN 3.7 g/dL (3.4-5.0); ANION GAP 7 mmol/L (5-15); CALCIUM 9.2 mg/dL (8.5-10.1); CHLORIDE 108 mmol/L (98-107)
[2019-12-26 17:41] LABS: ALANINE AMINOTRANSFERASE 26 U/L (12-78); ALKALINE PHOSPHATASE 91 U/L (45-117); BILIRUBIN,TOTAL 0.3 mg/dL (0.2-1.0); CREATININE 0.99 mg/dL (0.7-1.3); SALICYLATE LEVEL 1.9 mg/dL (2.8-20.0); TOTAL PROTEIN 8.3 g/dL (6.4-8.2)
--- NOTE | 2019-12-26 18:06 | NUR ---
Pt agitated, trying to get out of bed. Meal tray ordered.
--- NOTE | 2019-12-26 18:50 | NUR ---
BEDSIDE REPORT FROM CHARLES RN, PT CARE TRANSFERRED AT THIS TIME. PT RESTING ON GURNEY, EATING MEAL TRAY THAT WAS PROVIDED, PT NAD, APPEARS COMFORTABLE, DENIES ADDITIONAL NEEDS AT THIS TIME. JOSÉ, WCTM. PT TO BE DC'D AFTER MEAL
--- NOTE | 2019-12-26 18:53 | NUR ---
Pt to DC after mealtray. Report to ROBER Oreilly
--- NOTE | 2019-12-26 19:28 | NUR ---
Patient given discharge instructions and they have confirmed that they understand the instructions. Patient provided taxi voucher, uses wheelchair at baseline to get around. pt nad, denies additional questions or needs at this time.
[2019-12-26 19:32] VITALS: BP 142/87
== END 2019-12-26 19:34 | disposition home or self-care (01) ==
LOC: ED 18:20
DX: F10.20 Alcohol dependence, uncomplicated (principal); F39 Unspecified mood [affective] disorder; Y90.0 Blood alcohol level of less than 20 mg/100 ml
CPT/HCPCS: 36415; 80053; 80307; 85025; 99285

== ENCOUNTER 2019-12-27 20:12 | Emergency (ER) | payer MEDICARE ==
[~2019-12-27] VITALS: Ht 177.8 cm; Wt 82.0 kg
[2019-12-27] MEDS ORDERED: THIAMINE 100 MG/ML, 2ML ONE (21:25)
[2019-12-27] MEDS ORDERED: THIAMINE 100 MG/ML, 2ML IM ONE (21:30)
--- NOTE | 2019-12-27 21:40 | NUR ---
PT BECAME IRRITATED WITH BLOOD DRAW, ONCE BLOOD DRAW WAS COMPLETED, PT FELL BACK TO SLEEP. WCTM.
[2019-12-27 21:54] LABS: ALBUMIN 3.7 g/dL (3.4-5.0); ANION GAP 9 mmol/L (5-15); CHLORIDE 105 mmol/L (98-107); CREATININE 1.01 mg/dL (0.7-1.3)
[2019-12-27 21:55] LABS: SALICYLATE LEVEL < 1.7 mg/dL (2.8-20.0)
[2019-12-27 21:57] LABS: BASOPHILS % (AUTO) 1 % (0-1); EOSINOPHILS % (AUTO) 1 % (1-7); LYMPHOCYTES % (AUTO) 36 % (22-44); MEAN CORPUSCULAR HEMOGLOBIN 32.1 pg (27.5-34.5); MEAN CORPUSCULAR HGB CONC 34.3 g/dL (33.2-36.2); MEAN PLATELET VOLUME 8.7 fL (7.4-10.4); MONOCYTES % (AUTO) 21 % (2-9); NEUTROPHILS % (AUTO) 41 % (42-75); PLATELET COUNT 239 x10^3/uL (130-400); RED BLOOD COUNT 5.36 x10^6/uL (4.38-5.82); RED CELL DISTRIBUTION WIDTH 14.3 % (9.4-14.8)
--- NOTE | 2019-12-27 22:00 | NUR ---
pt aggitated when ct came to take pt to scan. notified. pt refusing ct scan of the head. aware.
[2019-12-27 22:20] LABS: MD SCAN
--- NOTE | 2019-12-27 23:05 | NUR ---
PT BECOMING VERY AGGITATED. PT STATING HE WANTS TO LEAVE. VSS. RN NOTICED L SIDE WEAKNESS. PT STATING THIS IS HIS NORM. MD NOTIFIED TO COME TO BEDSIDE TO ASSESS FOR D/C. SECURITY CALLED FOR STAFF AND PT SAFETY.
--- NOTE | 2019-12-27 23:15 | NUR ---
AT BEDSIDE. ASSESSED PT. PT TOLD MD THAT L SIDED WEAKNESS IS NORMAL. STATING HE LIVES ON THE STREETS AND WANTS TO LEAVE. MD APPROVED DISCHARGE. PT ESCORTED OUT BY SECURITY IN PT'S OWN WHEELCHAIR PRIOR TO RECEIVING DISCHARGE PAPERWORK.
[2019-12-27 23:18] VITALS: BP 109/83
== END 2019-12-27 23:20 | disposition home or self-care (01) ==
LOC: ED 23:14
DX: F10.220 Alcohol dependence with intoxication, uncomplicated (principal); F17.200 Nicotine dependence, unspecified, uncomplicated; R00.9 Unspecified abnormalities of heart beat; Z72.9 Problem related to lifestyle, unspecified; Y90.0 Blood alcohol level of less than 20 mg/100 ml
CPT/HCPCS: 36415; 71045; 80048; 80307; 82040; 85025; 96372; 99284; J3411

== ENCOUNTER 2019-12-27 23:49 | Emergency (ER) | payer MEDICARE ==
[~2019-12-27] VITALS: Ht 177.8 cm; Wt 82.0 kg
--- NOTE | 2019-12-28 00:13 | NUR ---
PT BELONGINGS/CLOTHING REMOVED, PLACED IN BAG AND LOCKED UP. SITTER AT BEDSIDE. VSS. PT ON CONTINOUS PULSE OX PER MD. PT COOPERATIVE AT THIS TIME. PT STATES THAT HE DOES WANT TO HURT HIMSELF BY WHEELING OUT INTO TRAFFIC AND GET HIT BY A CAR. WCTM.
[2019-12-28 01:18] LABS: MICROSCOPIC NOT IND
[2019-12-28 01:25] LABS: AMPHETAMINE SCREEN, URINE Negative (Negative); BARBITURATE SCREEN, URINE Negative (Negative); BENZODIAZEPINE SCREEN, URINE Positive (Negative); CANNABINOID SCREEN, URINE Negative (Negative); COCAINE SCREEN, URINE Negative (Negative); METHADONE SCREEN, URINE Negative (Negative); OPIATE SCREEN, URINE Negative (Negative)
[2019-12-28 02:23] LABS: ANION GAP 9 mmol/L (5-15); CHLORIDE 109 mmol/L (98-107); SALICYLATE LEVEL < 1.7 mg/dL (2.8-20.0)
--- NOTE | 2019-12-28 03:01 | NUR ---
PT IS SLEEPING. VSS. SITTER AT BEDSIDE. WCTM.
--- NOTE | 2019-12-28 04:30 | NUR ---
PT REFUSING BREATHYLZER. MD AWARE. BLOOD DRAW ORDERED.
--- NOTE | 2019-12-28 07:20 | NUR ---
RECEIVED REPORT FROM JORDIN FALLON RN. PT SCREAMING IN ROOM DEMANDING DENTURE GLUE. EDUCATED PT ON NEED TO COOPERATE.
[2019-12-28 07:24] VITALS: BP 100/74
--- NOTE | 2019-12-28 07:25 | NUR ---
DENTURE ADHESIVE ODERED FROM CENTR[facility] SUPPLY AND PT NOTIFIED AND BECAME MORE COOPERATIVE. PT STATES HE REMAINS W/ SI.
--- NOTE | 2019-12-28 07:29 | NUR ---
HOSPITAL BED ORDERED FOR PT.
--- NOTE | 2019-12-28 08:02 | NUR ---
PT MOVED FROM [facility] TO [facility]. REPOSITIONED FOR COMFORT.
--- NOTE | 2019-12-28 08:26 | NUR ---
PT PROVIDED W/ BREAKFAST TRAY. JULIO. SITTER REMAINS AT BEDSIDE. ROOM REMAINS SECURE.
--- NOTE | 2019-12-28 08:55 | NUR ---
PT LLE NOTED TO BE RED/HOT/SWOLLEN W/ WOUND ON TOP OF FOOT. ERP DR. SKY NOTIFIED.
[2019-12-28 09:15] LABS: BASOPHILS % (AUTO) 1 % (0-1); EOSINOPHILS % (AUTO) 1 % (1-7); LYMPHOCYTES % (AUTO) 24 % (22-44); MEAN CORPUSCULAR HEMOGLOBIN 31.6 pg (27.5-34.5); MEAN CORPUSCULAR HGB CONC 34.1 g/dL (33.2-36.2); MEAN PLATELET VOLUME 8.6 fL (7.4-10.4); MONOCYTES % (AUTO) 15 % (2-9); NEUTROPHILS % (AUTO) 60 % (42-75); PLATELET COUNT 216 x10^3/uL (130-400); RED CELL DISTRIBUTION WIDTH 14.1 % (9.4-14.8)
[2019-12-28 09:17] LABS: MD NO
--- NOTE | 2019-12-28 10:04 | NUR ---
PT NOW DENIES SI/HI. STATES HE HAS NO DESIRE TO FOLLOW THROUGH W/ HIS PLAN. PER ERP DR. SKY STATES HE SPOKE W/ PT AND PT ALSO DENIES SI/HI TO ERP. PER ERP PT OKAY TO DC TO [facility].
--- NOTE | 2019-12-28 11:09 | NUR ---
PT CONTINUES TO DENY SI/HI. PT HAS BEEN SEEN BY PSYCH AND SW MULTIPLE TIMES THIS WEEK. PT REFUSING TO COOPERATE. PT AGREEABLE TO DC TO [facility]. PROVIDED W/ TAXI VOUCHER AND [employer] CALLED FOR PT BY THIS RN.
== END 2019-12-28 11:12 | disposition home or self-care (01) ==
LOC: ED 12-28 00:55
DX: R45.851 Suicidal ideations (principal); F10.129 Alcohol abuse with intoxication, unspecified; R25.8 Other abnormal involuntary movements; Y90.9 Presence of alcohol in blood, level not specified
CPT/HCPCS: 36415; 70450; 80048; 80307; 81003; 85025; 99285

== ENCOUNTER 2019-12-28 17:39 | Emergency (ER) | payer MEDICARE ==
[~2019-12-28] VITALS: Ht 167.6 cm; Wt 85.4 kg
[2019-12-28 17:50] VITALS: BP 99/65
--- NOTE | 2019-12-28 18:30 | NUR ---
Patient given discharge instructions and they have confirmed that they understand the instructions. Patient leaving in his own wheelchair.
== END 2019-12-28 18:45 | disposition home or self-care (01) ==
LOC: ED 17:41
DX: F10.220 Alcohol dependence with intoxication, uncomplicated (principal); Y90.9 Presence of alcohol in blood, level not specified
CPT/HCPCS: 99283

== ENCOUNTER 2019-12-28 19:34 | Emergency (ER) | payer MEDICARE ==
[~2019-12-28] VITALS: Ht 172.7 cm; Wt 80.0 kg
--- NOTE | 2019-12-28 19:43 | NUR ---
THIS PT DENIES ALL COMPLAINTS. STATES HE DOES NOT KNOW WHY HE'S HERE. DENIES SI/ HI. ASKED FOR A TOWEL TO COVER HIS EYES, A URINAL AND A BLANKET. ALL NEEDS PROVIDED FOR.
--- NOTE | 2019-12-28 21:35 | NUR ---
PT REMAINS SLEEPING, RESPIRATIONS EVEN AND UNLABORED.
[2019-12-28 23:45] VITALS: BP 120/76
== END 2019-12-28 23:47 | disposition home or self-care (01) ==
LOC: ED 22:05
DX: F10.129 Alcohol abuse with intoxication, unspecified (principal); F41.9 Anxiety disorder, unspecified; F39 Unspecified mood [affective] disorder; M54.9 Dorsalgia, unspecified; Y90.9 Presence of alcohol in blood, level not specified
CPT/HCPCS: 99283

== ENCOUNTER 2019-12-31 23:24 | Emergency (ER) | payer MEDICARE ==
[~2019-12-31] VITALS: Ht 172.7 cm; Wt 90.0 kg
[2019-12-31 23:27] VITALS: BP 123/95
== END 2019-12-31 23:41 | disposition home or self-care (01) ==
LOC: ED 23:31
DX: F10.10 Alcohol abuse, uncomplicated (principal); Z72.9 Problem related to lifestyle, unspecified; F17.210 Nicotine dependence, cigarettes, uncomplicated; Y90.9 Presence of alcohol in blood, level not specified
CPT/HCPCS: 99283; 99406

== ENCOUNTER 2020-01-10 19:40 | Emergency (ER) | payer MEDICARE ==
[~2020-01-10] VITALS: Ht 182.9 cm; Wt 75.0 kg
[2020-01-10 22:30] VITALS: BP 130/81
== END 2020-01-10 23:06 | disposition home or self-care (01) ==
LOC: ED 22:10
DX: F10.220 Alcohol dependence with intoxication, uncomplicated (principal); F17.200 Nicotine dependence, unspecified, uncomplicated; Z72.9 Problem related to lifestyle, unspecified; Y90.0 Blood alcohol level of less than 20 mg/100 ml
CPT/HCPCS: 99283

== ENCOUNTER 2020-01-16 20:02 | Emergency (ER) | payer MEDICARE ==
[~2020-01-16] VITALS: Ht 170.2 cm; Wt 80.0 kg
--- NOTE | 2020-01-16 21:08 | NUR ---
PT RESTING ON ISABEL KIM NO NEEDS AT THIS TIME
[2020-01-17 01:22] VITALS: BP 134/76
== END 2020-01-17 01:29 | disposition home or self-care (01) ==
LOC: ED 21:04
DX: F10.229 Alcohol dependence with intoxication, unspecified (principal); F17.210 Nicotine dependence, cigarettes, uncomplicated; Z72.9 Problem related to lifestyle, unspecified; Y90.0 Blood alcohol level of less than 20 mg/100 ml
CPT/HCPCS: 99283; 99406

== ENCOUNTER 2020-01-21 01:25 | Inpatient (IN) | payer MEDICARE ==
[~2020-01-21] VITALS: Ht 170.2 cm; Wt 84.9 kg
[2020-01-21] MEDS ORDERED: SODIUM CHLORIDE 0.9% 1,000ML IVBOLUS ONE ×2 (02:00→02:30)
[2020-01-21] MEDS ORDERED: SODIUM CHLORIDE FLUSH 10ML SYR IVF ONE (02:00)
--- NOTE | 2020-01-21 02:00 | NUR ---
PT PRESENTS TO THE ER FROM HOMELESS LONG TERM. HE IS WHEELCHAIR BOUND AT BASELINE. PT HAS CHEIF COMPLAINT OF URINARY INCONTINENCE AND PAINFUL URINATION. AUDITORY WHEEZING CAN BE HEARD, PT STATES RELIEF WITH DIFFICULTY BREATHING AFTER DUO NEB TREAMENT. REMAINS CONNECTED TO ALL MONITORS. REPEATEDLY ASKING THIS RN FOR SOCKS AND TOWEL TO COVER EYES. CALL LIGHT IN REACH, ALL NEEDS MET.
[2020-01-21 02:07] LABS: MICROSCOPIC INDICATED
[2020-01-21] MEDS ORDERED: AZITHROMYCIN 500 MG in SODIUM CHLORIDE 0.9% 250 ML IVPB ONE (02:30)
[2020-01-21] MEDS ORDERED: CEFTRIAXONE PMX 1GM/50ML 50 ML IV ONE (02:30)
[2020-01-21] MEDS ORDERED: methylPREDNISolone SOD SUCC 125 MG/2 ML IV ONE (02:30)
[2020-01-21] MEDS ORDERED: ALBUTEROL/IPRATROPIUM 2.5MG/0.5MG, 3 ML NPPB ONE (02:30)
[2020-01-21] MEDS ORDERED: methylPREDNISolone SOD SUCC 125 MG/2 ML ONE ×2 (02:37→09:19)
[2020-01-21] MEDS ORDERED: CEFTRIAXONE PMX 1GM/50ML 50 ML ONE (02:37)
[2020-01-21] MEDS ORDERED: ALBUTEROL/IPRATROPIUM 2.5MG/0.5MG, 3 ML ONE (02:38)
[2020-01-21 02:47] LABS: BASOPHILS % (AUTO) 0 % (0-1); EOSINOPHILS % (AUTO) 1 % (1-7); LYMPHOCYTES % (AUTO) 9 % (22-44); MEAN CORPUSCULAR HEMOGLOBIN 31.8 pg (27.5-34.5); MEAN CORPUSCULAR HGB CONC 33.9 g/dL (33.2-36.2); MEAN PLATELET VOLUME 7.9 fL (7.4-10.4); MONOCYTES % (AUTO) 8 % (2-9); NEUTROPHILS % (AUTO) 82 % (42-75); PLATELET COUNT 190 x10^3/uL (130-400); RED BLOOD COUNT 4.71 x10^6/uL (4.38-5.82); RED CELL DISTRIBUTION WIDTH 15.1 % (9.4-14.8)
[2020-01-21 02:56] LABS: ALANINE AMINOTRANSFERASE 17 U/L (12-78); ALBUMIN 2.7 g/dL (3.4-5.0); ANION GAP 7 mmol/L (5-15); CALCIUM 8.8 mg/dL (8.5-10.1); CHLORIDE 108 mmol/L (98-107); CREATININE 0.71 mg/dL (0.7-1.3)
[2020-01-21 03:01] LABS: ALKALINE PHOSPHATASE 97 U/L (45-117); BILIRUBIN,TOTAL 0.5 mg/dL (0.2-1.0); TOTAL PROTEIN 7.2 g/dL (6.4-8.2); TROPONIN I < 0.015 ng/mL (0.000-0.045)
[2020-01-21 03:02] LABS: MD NO
[2020-01-21] MEDS ORDERED: LORazepam 2 MG/ML, 1ML ONE (03:16)
[2020-01-21] MEDS ORDERED: LORazepam 2 MG/ML, 1ML IVPush PRN (03:30)
[2020-01-21] MEDS ORDERED: MAGNESIUM SULFATE 1 GM, THIAMINE 100 MG, FOLIC ACID 1 MG, MVI ADULT 10 ML in SODIUM CHL... IV ONE (03:30)
--- NOTE | 2020-01-21 05:03 | NUR ---
PT PLACED ON HOSPITAL BED.
--- NOTE | 2020-01-21 07:02 | NUR ---
BEDSIDE REPORT TO ROBER HANNA. PT CONNECTED TO ALL MONITORS. VISIBLE CHEST RISE AND FALL.
[2020-01-21] MEDS ORDERED: DOCUSATE 100 MG CAPSULE PO PRN (08:00)
[2020-01-21] MEDS ORDERED: FOLIC ACID 5 MG/ML IM ONE (08:00)
[2020-01-21] MEDS ORDERED: ONDANSETRON 2MG/ML, 2ML IVPush PRN (08:00)
[2020-01-21] MEDS ORDERED: POTASSIUM CHLORIDE 20 MEQ, MAGNESIUM SULFATE 2 GM, THIAMINE 200 MG, MVI ADULT 10 ML, FO... IV SCH (08:00)
[2020-01-21] MEDS ORDERED: ENALAPRILAT 1.25 MG/ML, 2ML IVPush PRN (08:00)
[2020-01-21] MEDS ORDERED: GUAIFENESIN/DM 200-20MG, 10ML UDC PO PRN (08:00)
[2020-01-21] MEDS ORDERED: LORazepam 2 MG/ML, 1ML IV PRN ×5 (08:00)
[2020-01-21 08:43] LABS: INTERNATIONAL NORMALIZED RATIO 0.97 (0.93-1.1); PROTHROMBIN TIME 10.3 Seconds (9.6-11.5)
[2020-01-21 08:46] LABS: HCT (SEDRATE) 44.1 % (39.2-51.8)
--- NOTE | 2020-01-21 08:55 | NUR ---
ADMITTING MD CALLED FOR CLARIFICATION OF NEED FOR COVID SWAB AND MEDICATION ORDERS, AWAITING CALL BACK, MESSAGE LEFT
[2020-01-21] MEDS: MULTIVITAMINS/MINERALS TABLET PO SCH (09:00)
[2020-01-21] MEDS ORDERED: MULTIVITAMINS/MINERALS TABLET PO SCH (09:00)
[2020-01-21] MEDS ORDERED: ENOXAPARIN 40 MG/0.4 ML ONE (09:19)
[2020-01-21] MEDS ORDERED: SERTRALINE 50MG TABLET ONE (09:19)
--- NOTE | 2020-01-21 09:40 | NUR ---
PROVIDER UPDATED ON D DIMER, CTA ORDERED
--- NOTE | 2020-01-21 10:02 | NUR ---
MEDS REQUESTED FROM PHARMACY
[2020-01-21] MEDS ORDERED: OMNIPAQUE 350 MG/ML, 100ML BOTTLE ONE (10:11)
[2020-01-21] MEDS ORDERED: NICOTINE 14MG/24 HR PATCH.TD24 ONE (10:35)
[2020-01-21] MEDS ORDERED: FAMOTIDINE 20 MG TABLET ONE (10:35)
[2020-01-21] MEDS: FAMOTIDINE 20 MG TABLET PO SCH ×2 (10:45→20:59)
[2020-01-21] MEDS: NICOTINE 14MG/24 HR PATCH.TD24 TD SCH (10:45)
[2020-01-21] MEDS: ENOXAPARIN 40 MG/0.4 ML SQ SCH (10:45)
[2020-01-21] MEDS: methylPREDNISolone SOD SUCC 125 MG/2 ML IVPush SCH ×2 (10:45→20:59)
[2020-01-21] MEDS: SERTRALINE 50MG TABLET PO SCH (10:46)
[2020-01-21] MEDS: ALBUTEROL HFA 90 MCG/SPRAY INH SCH ×3 (11:00→23:45)
[2020-01-21 11:10] LABS: CHLORIDE,URINE RANDOM 102 mmol/L; POTASSIUM,URINE RANDOM 35 mmol/L; SODIUM,URINE RANDOM 80 mmol/L
[2020-01-21 11:14] LABS: AMPHETAMINE SCREEN, URINE Negative (Negative); BARBITURATE SCREEN, URINE Negative (Negative); BENZODIAZEPINE SCREEN, URINE Negative (Negative); CANNABINOID SCREEN, URINE Negative (Negative); COCAINE SCREEN, URINE Negative (Negative); METHADONE SCREEN, URINE Negative (Negative); OPIATE SCREEN, URINE Negative (Negative)
--- NOTE | 2020-01-21 12:19 | NUR ---
BREAK RN- PT RESTING IN BED, CALL LIGHT IN REACH. MEAL PROVIDED.
--- NOTE | 2020-01-21 14:12 | NUR ---
PT REFUSING TO HAVE ECHOCARDIOGRAM DONE AT THIS TIME, STATES HE WILL ONLY HAVE IT DONE IF GIVEN A MEAL TRAY. MEAL TRAY PROVIDED AT THIS TIME, DISCUSSED WITH TELEPHONE SOLICITOR TO ATTEMPT AT LATER TIME.
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
--- NOTE | 2020-01-21 18:22 | NUR ---
FIRST ATTEMPT AT CALL REPORT
--- NOTE | 2020-01-21 18:31 | NUR ---
REPORT TO RECIEVING RN, AWAITING TRASORT
[2020-01-21 19:35] VITALS: BP 125/79
[2020-01-21] MEDS: MELATONIN 5 MG TABLET PO PRN (23:45)
[2020-01-22] MEDS: CEFTRIAXONE PMX 1GM/50ML 50 ML IV SCH (03:00)
[2020-01-22 03:36] VITALS: BP 120/80
[2020-01-22] MEDS: AZITHROMYCIN 500 MG in SODIUM CHLORIDE 0.9% 250 ML IV SCH (04:27)
[2020-01-22] MEDS: ALBUTEROL HFA 90 MCG/SPRAY INH SCH ×4 (05:42→19:56)
[2020-01-22] MEDS: methylPREDNISolone SOD SUCC 125 MG/2 ML IVPush SCH (05:42)
[2020-01-22 05:57] LABS: BASOPHILS % (AUTO) 0 % (0-1); EOSINOPHILS % (AUTO) 0 % (1-7); LYMPHOCYTES % (AUTO) 13 % (22-44); MEAN CORPUSCULAR HEMOGLOBIN 31.9 pg (27.5-34.5); MEAN CORPUSCULAR HGB CONC 33.9 g/dL (33.2-36.2); MONOCYTES % (AUTO) 7 % (2-9); NEUTROPHILS % (AUTO) 81 % (42-75); PLATELET COUNT 172 x10^3/uL (130-400); RED BLOOD COUNT 3.89 x10^6/uL (4.38-5.82); RED CELL DISTRIBUTION WIDTH 14.9 % (9.4-14.8)
[2020-01-22 06:05] LABS: MD NO
[2020-01-22 06:07] LABS: ALBUMIN 2.3 g/dL (3.4-5.0); ANION GAP 3 mmol/L (5-15); CALCIUM 8.8 mg/dL (8.5-10.1); CHLORIDE 114 mmol/L (98-107)
[2020-01-22 06:12] LABS: ALANINE AMINOTRANSFERASE 13 U/L (12-78); ALKALINE PHOSPHATASE 68 U/L (45-117); BILIRUBIN,TOTAL 0.3 mg/dL (0.2-1.0); CREATININE 0.61 mg/dL (0.7-1.3)
[2020-01-22 06:36] VITALS: BP 108/64
[2020-01-22] MEDS ORDERED: POTASSIUM CHLORIDE 20 MEQ, MAGNESIUM SULFATE 2 GM, THIAMINE 200 MG, FOLIC ACID 1 MG, MV... IV SCH (07:00)
[2020-01-22] MEDS: SERTRALINE 50MG TABLET PO SCH (08:54)
[2020-01-22] MEDS: ENOXAPARIN 40 MG/0.4 ML SQ SCH (08:55)
[2020-01-22] MEDS: FAMOTIDINE 20 MG TABLET PO SCH ×2 (08:55→19:55)
[2020-01-22] MEDS: MULTIVITAMINS/MINERALS TABLET PO SCH (08:55)
[2020-01-22] MEDS: NICOTINE 14MG/24 HR PATCH.TD24 TD SCH (08:56)
[2020-01-22] MEDS ORDERED: THIAMINE 100 MG in DEXTROSE 5% 50 ML IVPB SCH (09:00)
[2020-01-22] MEDS: K-PHOS NEUTRAL 250MG TAB PO SCH ×2 (10:10→19:56)
[2020-01-22 12:00] VITALS: BP 105/67
[2020-01-22] MEDS: ASCORBIC ACID 500 MG TABLET PO SCH (16:43)
[2020-01-22 19:35] VITALS: BP 111/72
[2020-01-22] MEDS: MELATONIN 5 MG TABLET PO PRN (20:20)
[2020-01-23] MEDS: CEFTRIAXONE PMX 1GM/50ML 50 ML IV SCH (02:55)
[2020-01-23 03:01] VITALS: BP 113/76
[2020-01-23] MEDS: AZITHROMYCIN 500 MG in SODIUM CHLORIDE 0.9% 250 ML IV SCH (03:38)
[2020-01-23 05:27] LABS: HCT (SEDRATE) 36.8 % (39.2-51.8)
[2020-01-23 05:38] LABS: BASOPHILS % (AUTO) 0 % (0-1); EOSINOPHILS % (AUTO) 0 % (1-7); LYMPHOCYTES % (AUTO) 32 % (22-44); MEAN CORPUSCULAR HEMOGLOBIN 31.6 pg (27.5-34.5); MEAN CORPUSCULAR HGB CONC 33.7 g/dL (33.2-36.2); MEAN PLATELET VOLUME 7.8 fL (7.4-10.4); MONOCYTES % (AUTO) 9 % (2-9); NEUTROPHILS % (AUTO) 59 % (42-75); PLATELET COUNT 181 x10^3/uL (130-400); RED BLOOD COUNT 3.95 x10^6/uL (4.38-5.82); RED CELL DISTRIBUTION WIDTH 15.3 % (9.4-14.8)
[2020-01-23 05:39] LABS: ALBUMIN 2.1 g/dL (3.4-5.0); ANION GAP 5 mmol/L (5-15); CALCIUM 8.2 mg/dL (8.5-10.1); CHLORIDE 115 mmol/L (98-107)
[2020-01-23 05:42] LABS: D-DIMER 0.81 ug/mlFEU (0.00-0.52); INTERNATIONAL NORMALIZED RATIO 0.97 (0.93-1.1); PROTHROMBIN TIME 10.3 Seconds (9.6-11.5)
[2020-01-23] MEDS: ALBUTEROL HFA 90 MCG/SPRAY INH SCH ×4 (05:46→20:47)
[2020-01-23 05:48] LABS: MD NO
[2020-01-23 05:49] LABS: ALANINE AMINOTRANSFERASE 16 U/L (12-78); ALKALINE PHOSPHATASE 64 U/L (45-117); BILIRUBIN,TOTAL 0.4 mg/dL (0.2-1.0); C-REACTIVE PROTEIN, QUANT 2.32 mg/dL (0.02-0.49); CREATININE 0.76 mg/dL (0.7-1.3); TOTAL PROTEIN 5.8 g/dL (6.4-8.2)
[2020-01-23 06:49] VITALS: BP 103/68
[2020-01-23] MEDS: ENOXAPARIN 40 MG/0.4 ML SQ SCH (08:48)
[2020-01-23] MEDS: DEXAMETHASONE 4 MG/ML, 1ML IVPush SCH (08:49)
[2020-01-23] MEDS: NICOTINE 14MG/24 HR PATCH.TD24 TD SCH (08:49)
[2020-01-23] MEDS: THIAMINE 100MG TABLET PO SCH (08:49)
[2020-01-23] MEDS: FAMOTIDINE 20 MG TABLET PO SCH ×2 (08:49→20:46)
[2020-01-23] MEDS: K-PHOS NEUTRAL 250MG TAB PO SCH ×2 (08:49→20:46)
[2020-01-23] MEDS: CHOLECALCIFEROL 5,000u TAB PO SCH (08:50)
[2020-01-23] MEDS: MULTIVITAMINS/MINERALS TABLET PO SCH (08:50)
[2020-01-23] MEDS: ZINC SULFATE 220 MG CAPSULE PO SCH (08:50)
[2020-01-23] MEDS: ASCORBIC ACID 500 MG TABLET PO SCH ×2 (08:50→17:49)
[2020-01-23] MEDS: SERTRALINE 50MG TABLET PO SCH (08:50)
[2020-01-23 13:37] VITALS: BP 130/83
[2020-01-23 19:45] VITALS: BP 132/79
[2020-01-23] MEDS: MELATONIN 5 MG TABLET PO PRN (20:47)
[2020-01-24] MEDS: CEFTRIAXONE PMX 1GM/50ML 50 ML IV SCH (03:26)
[2020-01-24 03:30] VITALS: BP 122/75
[2020-01-24] MEDS: AZITHROMYCIN 500 MG in SODIUM CHLORIDE 0.9% 250 ML IV SCH (04:07)
[2020-01-24] MEDS: ALBUTEROL HFA 90 MCG/SPRAY INH SCH ×4 (05:19→20:59)
[2020-01-24 06:05] LABS: BASOPHILS % (AUTO) 0 % (0-1); EOSINOPHILS % (AUTO) 0 % (1-7); LYMPHOCYTES % (AUTO) 39 % (22-44); MEAN CORPUSCULAR HEMOGLOBIN 32.4 pg (27.5-34.5); MEAN CORPUSCULAR HGB CONC 34.5 g/dL (33.2-36.2); MEAN PLATELET VOLUME 7.1 fL (7.4-10.4); MONOCYTES % (AUTO) 11 % (2-9); NEUTROPHILS % (AUTO) 49 % (42-75); PLATELET COUNT 201 x10^3/uL (130-400); RED BLOOD COUNT 4.16 x10^6/uL (4.38-5.82); RED CELL DISTRIBUTION WIDTH 14.7 % (9.4-14.8)
[2020-01-24 06:11] LABS: CHLORIDE 112 mmol/L (98-107)
[2020-01-24 06:19] LABS: ALANINE AMINOTRANSFERASE 22 U/L (12-78); ALBUMIN 2.3 g/dL (3.4-5.0); ALKALINE PHOSPHATASE 66 U/L (45-117); ANION GAP 3 mmol/L (5-15); BILIRUBIN,TOTAL 0.3 mg/dL (0.2-1.0); CALCIUM 8.5 mg/dL (8.5-10.1); CREATININE 0.71 mg/dL (0.7-1.3)
[2020-01-24 06:24] LABS: MD NO
[2020-01-24 07:22] VITALS: BP 118/67
[2020-01-24] MEDS: NICOTINE 14MG/24 HR PATCH.TD24 TD SCH (08:57)
[2020-01-24] MEDS: K-PHOS NEUTRAL 250MG TAB PO SCH ×2 (08:57→20:59)
[2020-01-24] MEDS: ENOXAPARIN 40 MG/0.4 ML SQ SCH (08:58)
[2020-01-24] MEDS: MULTIVITAMINS/MINERALS TABLET PO SCH (08:59)
[2020-01-24] MEDS: FAMOTIDINE 20 MG TABLET PO SCH ×2 (08:59→20:59)
[2020-01-24] MEDS: THIAMINE 100MG TABLET PO SCH (08:59)
[2020-01-24] MEDS: SERTRALINE 50MG TABLET PO SCH (08:59)
[2020-01-24] MEDS: CHOLECALCIFEROL 5,000u TAB PO SCH (08:59)
[2020-01-24] MEDS: ZINC SULFATE 220 MG CAPSULE PO SCH (08:59)
[2020-01-24] MEDS: ASCORBIC ACID 500 MG TABLET PO SCH ×2 (09:00→17:27)
[2020-01-24] MEDS: DEXAMETHASONE 4 MG/ML, 1ML IVPush SCH (09:00)
[2020-01-24 12:21] VITALS: BP 123/73
[2020-01-24] MEDS: ACETAMINOPHEN 325 MG TABLET PO PRN (13:18)
[2020-01-24 20:45] VITALS: BP 132/79
[2020-01-24] MEDS: MELATONIN 5 MG TABLET PO PRN (21:07)
[2020-01-25] MEDS: CEFTRIAXONE PMX 1GM/50ML 50 ML IV SCH (03:01)
[2020-01-25 03:09] VITALS: BP 141/93
[2020-01-25] MEDS: AZITHROMYCIN 500 MG in SODIUM CHLORIDE 0.9% 250 ML IV SCH (04:18)
[2020-01-25 04:52] LABS: BASOPHILS % (AUTO) 1 % (0-1); EOSINOPHILS % (AUTO) 1 % (1-7); LYMPHOCYTES % (AUTO) 36 % (22-44); MEAN CORPUSCULAR HEMOGLOBIN 31.5 pg (27.5-34.5); MEAN CORPUSCULAR HGB CONC 33.6 g/dL (33.2-36.2); MEAN PLATELET VOLUME 7.5 fL (7.4-10.4); MONOCYTES % (AUTO) 10 % (2-9); NEUTROPHILS % (AUTO) 54 % (42-75); PLATELET COUNT 227 x10^3/uL (130-400); RED BLOOD COUNT 4.48 x10^6/uL (4.38-5.82); RED CELL DISTRIBUTION WIDTH 14.6 % (9.4-14.8)
[2020-01-25 04:53] LABS: MD NO
[2020-01-25 05:02] LABS: CHLORIDE 110 mmol/L (98-107)
[2020-01-25 05:10] LABS: ALANINE AMINOTRANSFERASE 24 U/L (12-78); ALBUMIN 2.4 g/dL (3.4-5.0); ALKALINE PHOSPHATASE 72 U/L (45-117); ANION GAP 4 mmol/L (5-15); BILIRUBIN,TOTAL 0.2 mg/dL (0.2-1.0); CALCIUM 8.4 mg/dL (8.5-10.1); CREATININE 0.72 mg/dL (0.7-1.3); TOTAL PROTEIN 6.1 g/dL (6.4-8.2)
[2020-01-25] MEDS: ALBUTEROL HFA 90 MCG/SPRAY INH SCH ×4 (06:00→22:18)
[2020-01-25 07:28] VITALS: BP 11/70
[2020-01-25] MEDS: K-PHOS NEUTRAL 250MG TAB PO SCH ×2 (08:52→22:12)
[2020-01-25] MEDS: ACETAMINOPHEN 325 MG TABLET PO PRN (08:53)
[2020-01-25] MEDS: FAMOTIDINE 20 MG TABLET PO SCH ×2 (08:53→22:12)
[2020-01-25] MEDS: DEXAMETHASONE 4 MG/ML, 1ML IVPush SCH (08:53)
[2020-01-25] MEDS: CHOLECALCIFEROL 5,000u TAB PO SCH (08:53)
[2020-01-25] MEDS: THIAMINE 100MG TABLET PO SCH (08:53)
[2020-01-25] MEDS: SERTRALINE 50MG TABLET PO SCH (08:53)
[2020-01-25] MEDS: ASCORBIC ACID 500 MG TABLET PO SCH ×2 (08:54→15:58)
[2020-01-25] MEDS: NICOTINE 14MG/24 HR PATCH.TD24 TD SCH (08:54)
[2020-01-25] MEDS: ZINC SULFATE 220 MG CAPSULE PO SCH (08:54)
[2020-01-25] MEDS: MULTIVITAMINS/MINERALS TABLET PO SCH (08:54)
[2020-01-25] MEDS: ENOXAPARIN 40 MG/0.4 ML SQ SCH (08:55)
[2020-01-25 15:06] VITALS: BP 108/71
[2020-01-25] MEDS: GABAPENTIN 300 MG CAPSULE PO SCH ×2 (15:58→22:12)
[2020-01-25 18:59] VITALS: BP 132/88
[2020-01-25] MEDS: MELATONIN 5 MG TABLET PO PRN (22:12)
[2020-01-26 00:52] VITALS: BP 107/73
[2020-01-26] MEDS ORDERED: AZITHROMYCIN 500 MG in SODIUM CHLORIDE 0.9% 250 ML IV SCH (02:00)
[2020-01-26] MEDS: CEFTRIAXONE PMX 1GM/50ML 50 ML IV SCH (02:30)
[2020-01-26] MEDS: ALBUTEROL HFA 90 MCG/SPRAY INH SCH ×4 (06:00→20:15)
[2020-01-26 06:32] LABS: BASOPHILS % (AUTO) 0 % (0-1); EOSINOPHILS % (AUTO) 2 % (1-7); LYMPHOCYTES % (AUTO) 38 % (22-44); MEAN CORPUSCULAR HEMOGLOBIN 31.2 pg (27.5-34.5); MEAN CORPUSCULAR HGB CONC 33.1 g/dL (33.2-36.2); MEAN PLATELET VOLUME 7.3 fL (7.4-10.4); MONOCYTES % (AUTO) 11 % (2-9); NEUTROPHILS % (AUTO) 49 % (42-75); PLATELET COUNT 233 x10^3/uL (130-400); RED CELL DISTRIBUTION WIDTH 15.1 % (9.4-14.8)
[2020-01-26 06:38] LABS: MD NO
[2020-01-26 06:41] LABS: ALBUMIN 2.4 g/dL (3.4-5.0); ANION GAP 4 mmol/L (5-15); CALCIUM 8.6 mg/dL (8.5-10.1); CHLORIDE 112 mmol/L (98-107)
[2020-01-26 06:44] LABS: ALANINE AMINOTRANSFERASE 22 U/L (12-78); ALKALINE PHOSPHATASE 65 U/L (45-117); BILIRUBIN,TOTAL 0.2 mg/dL (0.2-1.0); CREATININE 0.81 mg/dL (0.7-1.3); TOTAL PROTEIN 5.7 g/dL (6.4-8.2)
[2020-01-26] MEDS: GABAPENTIN 300 MG CAPSULE PO SCH ×3 (08:38→20:17)
[2020-01-26] MEDS: THIAMINE 100MG TABLET PO SCH (08:38)
[2020-01-26] MEDS: CHOLECALCIFEROL 5,000u TAB PO SCH (08:38)
[2020-01-26] MEDS: K-PHOS NEUTRAL 250MG TAB PO SCH ×2 (08:38→20:16)
[2020-01-26] MEDS: MULTIVITAMINS/MINERALS TABLET PO SCH (08:38)
[2020-01-26] MEDS: ASCORBIC ACID 500 MG TABLET PO SCH ×2 (08:38→16:40)
[2020-01-26] MEDS: FAMOTIDINE 20 MG TABLET PO SCH ×2 (08:38→20:17)
[2020-01-26] MEDS: NICOTINE 14MG/24 HR PATCH.TD24 TD SCH (08:38)
[2020-01-26] MEDS: SERTRALINE 50MG TABLET PO SCH (08:38)
[2020-01-26] MEDS: ENOXAPARIN 40 MG/0.4 ML SQ SCH (08:39)
[2020-01-26] MEDS: ZINC SULFATE 220 MG CAPSULE PO SCH (08:50)
[2020-01-26 08:56] VITALS: BP 103/66
[2020-01-26] MEDS: SODIUM CHLORIDE 0.9% 1,000 ML IV SCH (11:46)
[2020-01-26 12:30] VITALS: BP 99/67
[2020-01-26] MEDS: LACTOBACILLUS CHEW TABLET PO SCH ×2 (16:40→20:17)
[2020-01-26 18:52] VITALS: BP 106/66
[2020-01-26] MEDS ORDERED: AMOXICILLIN 500 MG CAPSULE PO SCH (21:00)
[2020-01-27 00:27] VITALS: BP 111/72
[2020-01-27] MEDS: CEFTRIAXONE PMX 1GM/50ML 50 ML IV SCH (02:42)
[2020-01-27] MEDS: SODIUM CHLORIDE 0.9% 1,000 ML IV SCH ×2 (03:17→19:47)
[2020-01-27] MEDS: ALBUTEROL HFA 90 MCG/SPRAY INH SCH ×4 (05:34→19:48)
[2020-01-27 07:32] VITALS: BP 118/76
[2020-01-27] MEDS: K-PHOS NEUTRAL 250MG TAB PO SCH ×2 (10:07→19:48)
[2020-01-27] MEDS: ASCORBIC ACID 500 MG TABLET PO SCH ×2 (10:07→16:45)
[2020-01-27] MEDS: MULTIVITAMINS/MINERALS TABLET PO SCH (10:08)
[2020-01-27] MEDS: GABAPENTIN 300 MG CAPSULE PO SCH ×3 (10:08→19:48)
[2020-01-27] MEDS: FAMOTIDINE 20 MG TABLET PO SCH ×2 (10:08→19:48)
[2020-01-27] MEDS: SERTRALINE 50MG TABLET PO SCH (10:08)
[2020-01-27] MEDS: CHOLECALCIFEROL 5,000u TAB PO SCH (10:08)
[2020-01-27] MEDS: LACTOBACILLUS CHEW TABLET PO SCH ×3 (10:08→19:48)
[2020-01-27] MEDS: ZINC SULFATE 220 MG CAPSULE PO SCH (10:08)
[2020-01-27] MEDS: THIAMINE 100MG TABLET PO SCH (10:08)
[2020-01-27] MEDS: NICOTINE 14MG/24 HR PATCH.TD24 TD SCH (10:09)
[2020-01-27] MEDS: ENOXAPARIN 40 MG/0.4 ML SQ SCH (10:09)
[2020-01-27 14:40] VITALS: BP 108/72
[2020-01-27 18:54] VITALS: BP 105/64
[2020-01-27] MEDS: ACETAMINOPHEN 325 MG TABLET PO PRN (19:48)
[2020-01-27] MEDS: MELATONIN 5 MG TABLET PO PRN (19:49)
[2020-01-28 00:37] VITALS: BP 110/74
[2020-01-28] MEDS: CEFTRIAXONE PMX 1GM/50ML 50 ML IV SCH (03:16)
[2020-01-28] MEDS: ACETAMINOPHEN 325 MG TABLET PO PRN (03:18)
[2020-01-28] MEDS: ALBUTEROL HFA 90 MCG/SPRAY INH SCH ×2 (06:00→10:09)
[2020-01-28 07:25] VITALS: BP 103/65
[2020-01-28] MEDS: ZINC SULFATE 220 MG CAPSULE PO SCH (09:00)
[2020-01-28] MEDS: SERTRALINE 50MG TABLET PO SCH (09:00)
[2020-01-28] MEDS: ENOXAPARIN 40 MG/0.4 ML SQ SCH (10:00)
[2020-01-28] MEDS: ASCORBIC ACID 500 MG TABLET PO SCH (10:08)
[2020-01-28] MEDS: K-PHOS NEUTRAL 250MG TAB PO SCH (10:08)
[2020-01-28] MEDS: FAMOTIDINE 20 MG TABLET PO SCH (10:09)
[2020-01-28] MEDS: LACTOBACILLUS CHEW TABLET PO SCH (10:09)
[2020-01-28] MEDS: CHOLECALCIFEROL 5,000u TAB PO SCH (10:09)
[2020-01-28] MEDS: NICOTINE 14MG/24 HR PATCH.TD24 TD SCH (10:09)
[2020-01-28] MEDS: THIAMINE 100MG TABLET PO SCH (10:09)
[2020-01-28] MEDS: MULTIVITAMINS/MINERALS TABLET PO SCH (10:09)
[2020-01-28] MEDS: GABAPENTIN 300 MG CAPSULE PO SCH (10:09)
[2020-01-28] MEDS ORDERED: ACID1TAB7 PO (10:21)
[2020-01-28 12:28] VITALS: BP 108/74
== END 2020-01-28 16:15 | disposition home or self-care (01) | DRG 871 ==
LOC: ED 02:19 → EDIP 04:17 → 4EST 19:19
PROVIDERS: ADMIT Family Medicine; ATTEND Internal Medicine
DX: A41.9 Sepsis, unspecified organism (principal); U07.1 COVID-19; J96.01 Acute respiratory failure with hypoxia; J44.1 Chronic obstructive pulmonary disease with (acute) exacerbation; N39.0 Urinary tract infection, site not specified; F10.239 Alcohol dependence with withdrawal, unspecified; N10 Acute pyelonephritis; E66.9 Obesity, unspecified; E86.0 Dehydration; R32 Unspecified urinary incontinence; G62.9 Polyneuropathy, unspecified; F17.200 Nicotine dependence, unspecified, uncomplicated; F20.9 Schizophrenia, unspecified; F10.229 Alcohol dependence with intoxication, unspecified; F32.9 Major depressive disorder, single episode, unspecified; Z79.899 Other long term (current) drug therapy
CPT/HCPCS: 36415; 71045; 71275; 76770; 80053; 80307; 80320; 81001; 82436; 82570; 82728; 83036; 83605; 83615; 83690; 83735; 83880; 84100; 84133; 84145; 84300; 84484; 85025; 85379; 85384; 85610; 85651; 86140; 87040; 87070; 87077; 87086; 87186; 87205; 93005; 93306; 93925; 93970; 96372; 96374; 96375; 99291; G0378; J0456; J0696; J1100; J1650; J3411; J3475; J3480; J7042; Q9967; G0480; J2060; J2930; J7030; J7050; U0003

== ENCOUNTER 2020-01-29 12:09 | Emergency (ER) | payer MEDICARE ==
[~2020-01-29] VITALS: Ht 170.2 cm; Wt 78.0 kg
[~2020-01-29 12:09] MED LIST changes: +ACID1TAB7 PO
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
[2020-01-29 12:36] LABS: BASOPHILS % (AUTO) 1 % (0-1); EOSINOPHILS % (AUTO) 1 % (1-7); LYMPHOCYTES % (AUTO) 16 % (22-44); MEAN CORPUSCULAR HEMOGLOBIN 32.2 pg (27.5-34.5); MEAN CORPUSCULAR HGB CONC 33.8 g/dL (33.2-36.2); MEAN PLATELET VOLUME 7.3 fL (7.4-10.4); MONOCYTES % (AUTO) 7 % (2-9); NEUTROPHILS % (AUTO) 75 % (42-75); PLATELET COUNT 262 x10^3/uL (130-400); RED BLOOD COUNT 4.82 x10^6/uL (4.38-5.82); RED CELL DISTRIBUTION WIDTH 15.4 % (9.4-14.8)
[2020-01-29 12:37] LABS: MD NO
[2020-01-29 12:39] LABS: MICROSCOPIC NOT IND
[2020-01-29 12:45] LABS: ALANINE AMINOTRANSFERASE 25 U/L (12-78); ALBUMIN 3.1 g/dL (3.4-5.0); ANION GAP 2 mmol/L (5-15); CALCIUM 8.8 mg/dL (8.5-10.1); CHLORIDE 107 mmol/L (98-107); CREATININE 0.76 mg/dL (0.7-1.3)
[2020-01-29 12:47] LABS: ALKALINE PHOSPHATASE 80 U/L (45-117); BILIRUBIN,TOTAL 0.4 mg/dL (0.2-1.0); TOTAL PROTEIN 7.1 g/dL (6.4-8.2)
[2020-01-29 13:25] VITALS: BP 121/82
--- NOTE | 2020-01-29 13:26 | NUR ---
PT RESTING IN BED, PT ON MONITOR WITH VSS. PT DENIED ANY WANTS OR NEEDS AT THIS TIME. PT PROVIDER AND XRAY IN ROOM AT THIS TIME.
--- NOTE | 2020-01-29 14:00 | NUR ---
PT PROVIDED FOOD TRAY
== END 2020-01-29 14:28 | disposition home or self-care (01) ==
LOC: ED 12:55
DX: F10.20 Alcohol dependence, uncomplicated (principal); R05 Cough; R30.0 Dysuria; J44.9 Chronic obstructive pulmonary disease, unspecified; Z72.9 Problem related to lifestyle, unspecified; F17.210 Nicotine dependence, cigarettes, uncomplicated; Y90.0 Blood alcohol level of less than 20 mg/100 ml
CPT/HCPCS: 36415; 71045; 80053; 80320; 81003; 85025; 99284; 99406; G0480

== ENCOUNTER 2020-08-08 02:07 | Emergency (ER) | payer MEDICARE ==
[~2020-08-08] VITALS: Ht 170.2 cm; Wt 93.3 kg
[~2020-08-08 02:07] MED LIST changes: +ASPI-1026 PO; -ASPI-650 PO; -FOLI-17 PO; +FOLI1TAB32 PO; +METH-639 PO; -METH500T7 PO; -OXYC5TAB3 PO; +OXYC5TAB98 PO
--- NOTE | 2020-08-08 03:34 | NUR ---
PT REQUESTING TO REST MORE AT THIS TIME, NADN, RESP EVEN AND UNLABORED
[2020-08-08 05:08] VITALS: BP 125/78
--- NOTE | 2020-08-08 05:08 | NUR ---
Pt awake now, drinking soda and eating crackers. Pt is able to navigate community safely and its resources. All pt belongings were provided back to pt, wc etc. IV dc cath intact. VSS.
--- NOTE | 2020-08-08 05:20 | NUR ---
Security called to help encourage pt out the door.
== END 2020-08-08 05:27 ==
LOC: ED 05:21
DX: F10.120 Alcohol abuse with intoxication, uncomplicated (principal); J44.9 Chronic obstructive pulmonary disease, unspecified; F17.210 Nicotine dependence, cigarettes, uncomplicated; Y90.0 Blood alcohol level of less than 20 mg/100 ml
CPT/HCPCS: 99406

== ENCOUNTER 2020-08-09 17:00 | Emergency (ER) | payer MEDICARE ==
[~2020-08-09] VITALS: Ht 170.2 cm; Wt 93.0 kg
--- NOTE | 2020-08-09 17:30 | NUR ---
pt combative and yelling at staff. attempted to grab femaile nurse. security called, pt placed in restraints. sitter now watching pt.
[2020-08-09] MEDS ORDERED: HALOPERIDOL 5 MG/ML ONE (17:54)
[2020-08-09] MEDS ORDERED: HALOPERIDOL 5 MG/ML IM ONE (18:00)
--- NOTE | 2020-08-09 18:10 | NUR ---
PT COOPERATED WITH CT SCAN. PT BACK IN ROOM, RESTING CALMLY. RESTRAINTS REMOVED.
[2020-08-09] MEDS ORDERED: LORazepam 2 MG/ML, 1ML ONE (18:33)
--- NOTE | 2020-08-09 19:24 | NUR ---
ASSUMED CARE OF PATIENT. VS STABLE CALL LIGHT IN PLACE. WILL CONTINUE TO MONITOR.
--- NOTE | 2020-08-09 19:29 | NUR ---
report given to ROBER Celis for break.
--- NOTE | 2020-08-09 20:27 | NUR ---
PT RESTING IN ROOM. VS STABLE. PT REPORTS HE LIVES AT THE [facility]. PT IS A&O X4. CALL LIGHT IN PLACE. WILL CONTINUE TO MONITOR.
[2020-08-09 20:31] VITALS: BP 123/72
--- NOTE | 2020-08-09 20:37 | NUR ---
DR FINLEY HAS SEEN PATIENT. PATIENT REQUESTING TO LEAVE. PT WANTS TO GO TO THE [facility]IDENTIAL. PT IS A&O X4
--- NOTE | 2020-08-09 20:57 | NUR ---
PT SPOKE WITH DR FINLEY, PT REFUSED ADMISSION. PT REPORTS HE WAS KICKED OUT OF [facility] AND WANTS TO STAY AT THE [facility]. PT GIVEN WATER, PT REFUSED FOOD. PT TRANSFERRED SELF INTO WHEELCHAIR. VS STABLE. PT IS A&O X4. PT GIVEN A TAXI VOUCHER TO THE [facility]. PT DISCHARGED IN HOME WHEELCHAIR TO THE [facility] PER PT'S REQUEST.
== END 2020-08-09 21:01 | disposition home or self-care (01) ==
LOC: ED 18:00
DX: S06.0X0A Concussion without loss of consciousness, initial encounter (principal); F10.120 Alcohol abuse with intoxication, uncomplicated; G31.2 Degeneration of nervous system due to alcohol; Z72.9 Problem related to lifestyle, unspecified; W05.0XXA Fall from non-moving wheelchair, initial encounter; Y93.89 Activity, other specified; Y92.410 Unspecified street and highway as the place of occurrence of the external cause; Y99.8 Other external cause status
CPT/HCPCS: 70450; 99284

== ENCOUNTER 2020-08-11 00:09 | Emergency (ER) | payer MEDICARE ==
[~2020-08-11] VITALS: Ht 167.6 cm; Wt 80.0 kg
--- NOTE | 2020-08-11 00:20 | NUR ---
pt bib remsa with c/o etoh intoxication, pt was here for same yesterday
--- NOTE | 2020-08-11 00:50 | NUR ---
REPORT FROM ROBER STEVENS
[2020-08-11 01:04] LABS: BASOPHILS % (AUTO) 1 % (0-1); EOSINOPHILS % (AUTO) 0 % (1-7); LYMPHOCYTES % (AUTO) 28 % (22-44); MEAN CORPUSCULAR HGB CONC 33.3 g/dL (33.2-36.2); MEAN PLATELET VOLUME 7.8 fL (7.4-10.4); MONOCYTES % (AUTO) 8 % (2-9); NEUTROPHILS % (AUTO) 63 % (42-75); PLATELET COUNT 224 x10^3/uL (130-400); RED BLOOD COUNT 5.11 x10^6/uL (4.38-5.82); RED CELL DISTRIBUTION WIDTH 15.8 % (9.4-14.8)
[2020-08-11 01:11] LABS: ALANINE AMINOTRANSFERASE 17 U/L (12-78); ALBUMIN 3.6 g/dL (3.4-5.0); ANION GAP 11 mmol/L (5-15); CALCIUM 8.8 mg/dL (8.5-10.1); CHLORIDE 112 mmol/L (98-107); CREATININE 0.74 mg/dL (0.7-1.3)
[2020-08-11 01:13] LABS: ALKALINE PHOSPHATASE 63 U/L (45-117); BILIRUBIN,TOTAL 0.3 mg/dL (0.2-1.0); TOTAL PROTEIN 7.8 g/dL (6.4-8.2)
--- NOTE | 2020-08-11 02:00 | NUR ---
PT RESTING ON GURNEY. EYES CLOSED, RESPIRATIONS EVEN AND UNLABORED. ATTACHED TO SPO2 AND BP MONITORS. VSS.
--- NOTE | 2020-08-11 03:00 | NUR ---
PT RESTING ON GURNEY. EYES CLOSED, RESPIRATIONS EVEN AND UNLABORED. ATTACHED TO SPO2 AND BP MONITORS. VSS.
[2020-08-11 03:22] VITALS: BP 123/76
--- NOTE | 2020-08-11 04:29 | NUR ---
PT RESTING ON GURNEY. EYES CLOSED, RESPIRATIONS EVEN AND UNLABORED. ATTACHED TO SPO2 AND BP MONITORS. VSS.
--- NOTE | 2020-08-11 05:48 | NUR ---
pt A+O x 4. pleasent and cooperative. out to lobby with taxi voucher
== END 2020-08-11 05:49 | disposition home or self-care (01) ==
LOC: ED 00:43
DX: S09.90XA Unspecified injury of head, initial encounter (principal); F10.120 Alcohol abuse with intoxication, uncomplicated; Z72.9 Problem related to lifestyle, unspecified; R41.82 Altered mental status, unspecified; R45.1 Restlessness and agitation; Y90.0 Blood alcohol level of less than 20 mg/100 ml; J44.9 Chronic obstructive pulmonary disease, unspecified; W05.0XXA Fall from non-moving wheelchair, initial encounter; Y93.89 Activity, other specified; Y92.89 Other specified places as the place of occurrence of the external cause; Y99.8 Other external cause status
CPT/HCPCS: 36415; 70450; 80053; 80320; 85025; 99284; G0480

== ENCOUNTER 2020-08-27 11:21 | Emergency (ER) | payer MEDICARE ==
[~2020-08-27] VITALS: Ht 170.2 cm; Wt 90.0 kg
[2020-08-27 11:33] VITALS: BP 104/75
--- NOTE | 2020-08-27 11:42 | NUR ---
BIB IN EMS FOR ETOH. PT CALM IN BED. PT IN GOWN WITH CONT SPO2, BP Q 30 MIN, DIET TRAY ORDERED. CALL LIGHT IN REACH. NAD. REPLACED BANDAGE ON LEFT BKA, AND RIGHT PARTIAL FOOT AMP BANDAGE REMOVED.
--- NOTE | 2020-08-27 12:52 | NUR ---
BREAK RN: DIET TRAY DELIVERED. PT APPRECIATIVE.
== END 2020-08-27 13:54 | disposition home or self-care (01) ==
LOC: ED 11:51
DX: F10.220 Alcohol dependence with intoxication, uncomplicated (principal); Y90.0 Blood alcohol level of less than 20 mg/100 ml; F17.200 Nicotine dependence, unspecified, uncomplicated
CPT/HCPCS: 99283

== ENCOUNTER 2020-08-30 02:50 | Emergency (ER) | payer MEDICARE ==
[~2020-08-30] VITALS: Ht 167.6 cm; Wt 81.7 kg
[2020-08-30 02:53] VITALS: BP 116/62
[2020-08-30] MEDS ORDERED: IBUPROFEN 800 MG TABLET ONE (03:15)
[2020-08-30] MEDS ORDERED: ACETAMINOPHEN 500 MG TABLET ONE (03:16)
--- NOTE | 2020-08-30 03:17 | NUR ---
PT PRESENTS TO THE ER FOR FALLING OUT OF HIS WHEELCHAIR, PT WAS AT THIS ER LAST NIGHT AND WAS EVALUATED BY A PROVIDER FOR A FALL, PT HAS NO NEW WOUNDS OR PROBLEMS
--- NOTE | 2020-08-30 03:20 | NUR ---
PT A/OX4, PT IS WHEELCHAIR BOUND AND WHEELCHAIR IS CURRENTLY PRESENT, PT ASSISTED INTO WHEELCHAIR, THIS RN TO ARRANGE FOR TAXI THAT IS WHEELCHAIR ACCESSIBLE TO GET PT BACK TO THE HOMELESS LONGTERM PER PTS REQUEST.
[2020-08-30] MEDS ORDERED: ACETAMINOPHEN 500 MG TABLET PO ONE (03:30)
[2020-08-30] MEDS ORDERED: IBUPROFEN 800 MG TABLET PO ONE (03:30)
--- NOTE | 2020-08-30 03:35 | NUR ---
PT ABLE TO PROP HIMSELF UP IN BED AND WAS ABLE TO PIVOT INTO HIS WHEELCHAIR, THIS RN PROVIDED PT WITH CAB VOUCHER TO THE HOMELESS [facility], PT Wang/TAL, JOSÉ UPON DISCHARGE
== END 2020-08-30 03:38 | disposition home or self-care (01) ==
LOC: ED 03:18
DX: S00.81XA Abrasion of other part of head, initial encounter (principal); M25.561 Pain in right knee; F10.220 Alcohol dependence with intoxication, uncomplicated; F17.210 Nicotine dependence, cigarettes, uncomplicated; J44.9 Chronic obstructive pulmonary disease, unspecified; Y90.0 Blood alcohol level of less than 20 mg/100 ml; W05.0XXA Fall from non-moving wheelchair, initial encounter; Y93.89 Activity, other specified; Y92.89 Other specified places as the place of occurrence of the external cause; Y99.8 Other external cause status
CPT/HCPCS: 99406

== ENCOUNTER 2020-09-03 10:12 | Emergency (ER) | payer MEDICARE ==
[~2020-09-03] VITALS: Ht 170.2 cm; Wt 93.0 kg
--- NOTE | 2020-09-03 10:30 | NUR ---
PT IN [facility] AND ATTACHED TO ALL VS MONITORS. VSS AT THIS TIME. PT UNABLE TO TALK COHERENTLY FOR FULL HISTORY AND ASSESSMENT, BUT REPORTS LOWER EXTREMITY PAIN FROM WALKING AROUND DOWNTOWN "TOO MUCH". PT ALSO REPORTS HEAVY ETOH USE TODAY. PT HAS CALL LIGHT WITHIN REACH. FOOD TRAY ORDERED FOR PT AT THIS TIME. WILL CONTINUE TO MONITOR PT CONDITION.
[2020-09-03 13:15] VITALS: BP 132/85
== END 2020-09-03 13:50 | disposition home or self-care (01) ==
LOC: ED 10:18
DX: S80.812A Abrasion, left lower leg, initial encounter (principal); L55.9 Sunburn, unspecified; J44.9 Chronic obstructive pulmonary disease, unspecified; Z89.512 Acquired absence of left leg below knee; X58.XXXA Exposure to other specified factors, initial encounter; Y93.89 Activity, other specified; Y92.89 Other specified places as the place of occurrence of the external cause; Y99.8 Other external cause status
CPT/HCPCS: 99283

== ENCOUNTER 2020-09-12 04:28 | Emergency (ER) | payer MEDICARE ==
--- NOTE | 2020-09-12 04:46 | NUR ---
MAURY. EMS FOUND PT DOWNTOWN ON SIDEWALK. PATIENT ADMITTED TO DRINKING BEER TODAY. PATIENT SLEEPING ON GURNEY WHEN BROUGHT IN BY EMS.
--- NOTE | 2020-09-12 05:12 | NUR ---
PATIENT SLEEPING ON GURNEY, CONTINUES TO BE UNCOOPERATIVE WITH ASSESSMENT.
--- NOTE | 2020-09-12 06:12 | NUR ---
PATIENT CONTINUES TO SLEEP ON JOSÉ HALL AT THIS TIME, VSS.
--- NOTE | 2020-09-12 06:47 | NUR ---
REPORT GIVEN TO ROBER COOK
--- NOTE | 2020-09-12 07:01 | NUR ---
PT RESTING WITH EYES CLOSED ON SIDE IN [facility]. NAD NOTED AT THIS TIME. RESPIRATIONS EVEN AND UNLABORED. PT MAEX4 INDEPENDENTLY. SIDE RAILS UP.
--- NOTE | 2020-09-12 08:14 | NUR ---
PT RESTING ON SIDE IN [facility]. NAD NOTED AT THIS TIME. VSS. SIDE RAILS UP, CALL LIGHT IN REACH.
--- NOTE | 2020-09-12 08:22 | NUR ---
MEAL TRAY ORDERED TO HELP FACILITATE PT THROUGHPUT.
--- NOTE | 2020-09-12 09:23 | NUR ---
PT ASLEEP IN BED, NAD NOTED. PT AWAKENS EASILY. RN ENCOURAGED PT TO EAT. SIDE RAILS UP, CALL LIGHT IN REACH.
[2020-09-12 10:05] VITALS: BP 114/58
--- NOTE | 2020-09-12 10:22 | NUR ---
PT ENCOURAGED TO WAKE UP AND EAT FOOD. PT MOVES IN BED TO BE ABLE TO EAT MEAL TRAY. RN REPACKED PT'S BELONGINGS, WHICH WERE FALLING OUT OF OLD GROCERY BAG.
== END 2020-09-12 11:07 | disposition home or self-care (01) ==
LOC: ED 05:29
DX: F10.120 Alcohol abuse with intoxication, uncomplicated (principal); J44.9 Chronic obstructive pulmonary disease, unspecified; Z89.519 Acquired absence of unspecified leg below knee; Y90.0 Blood alcohol level of less than 20 mg/100 ml
CPT/HCPCS: 99285

== ENCOUNTER 2020-09-16 04:38 | Inpatient (IN) | payer MEDICAID, MEDICARE, OTHER ==
[~2020-09-16] VITALS: Ht 177.8 cm; Wt 82.1 kg
[2020-09-16] MEDS ORDERED: PLEASE ENTER ALLERGIES MC SCH (05:30)
[2020-09-16] MEDS ORDERED: VANCOMYCIN PER PHARMACY MC PRN ×2 (05:30→08:00)
[2020-09-16 05:36] LABS: BASOPHILS % (AUTO) 1 % (0-1); EOSINOPHILS % (AUTO) 2 % (1-7); LYMPHOCYTES % (AUTO) 16 % (22-44); MEAN CORPUSCULAR HEMOGLOBIN 30.9 pg (27.5-34.5); MEAN CORPUSCULAR HGB CONC 34.5 g/dL (33.2-36.2); MEAN PLATELET VOLUME 7.5 fL (7.4-10.4); MONOCYTES % (AUTO) 10 % (2-9); NEUTROPHILS % (AUTO) 71 % (42-75); PLATELET COUNT 240 x10^3/uL (130-400); RED CELL DISTRIBUTION WIDTH 15.7 % (9.4-14.8)
--- NOTE | 2020-09-16 05:40 | NUR ---
PT BIBA FROM [facility], PT INTOXICATED, PT HAS A BELOW THE KNEE AMPUTATION ON HIS LEFT SIDE, PTS LEFT LEG IS RED AND SWOLLEN AND PAINFUL
[2020-09-16 05:48] LABS: ALANINE AMINOTRANSFERASE 16 U/L (12-78); ALBUMIN 2.9 g/dL (3.4-5.0); ANION GAP 6 mmol/L (5-15); CALCIUM 9.9 mg/dL (8.5-10.1); CHLORIDE 99 mmol/L (98-107)
[2020-09-16 05:51] LABS: ALKALINE PHOSPHATASE 93 U/L (45-117); BILIRUBIN,TOTAL 0.8 mg/dL (0.2-1.0); TOTAL PROTEIN 8.4 g/dL (6.4-8.2)
[2020-09-16] MEDS ORDERED: PHARMACOKINETIC CONSULTATION MC ONE ×2 (06:00→10:30)
[2020-09-16] MEDS ORDERED: PIPERACILLIN/TAZO 3.375 GM in DEXTROSE 5% 50 ML IVPB ONE (06:30)
[2020-09-16] MEDS ORDERED: OMNIPAQUE 350 MG/ML, 100ML BOTTLE ONE (06:31)
[2020-09-16] MEDS ORDERED: VANCOMYCIN 1,800 MG in SODIUM CHLORIDE 0.9% 250 ML IV ONE (07:00)
--- NOTE | 2020-09-16 07:05 | NUR ---
assumed caqre of pt. report from Merrill RICHTER pt here for cellulitis of L leg stump. pt is homeless and WC bound pt resting on his side and uncooperative with assessment. no family at bedside
--- NOTE | 2020-09-16 07:08 | NUR ---
zosyn infusion completed
--- NOTE | 2020-09-16 07:10 | NUR ---
pt given fresh mask as pevious mask was brown. pt yelling at staff and uncooperative with instructions or assessment attempted to update pt on POC. pt rolled away from this RN and began groaning
--- NOTE | 2020-09-16 07:20 | NUR ---
US at bedside
--- NOTE | 2020-09-16 07:36 | NUR ---
IV ABX infusing. bedside US completed. per US tech, pt was uncooperative with most of exam but every attempt was made to complete the test
--- NOTE | 2020-09-16 08:05 | NUR ---
pt currently sleeping
--- NOTE | 2020-09-16 08:20 | NUR ---
admit orders have been recieved with bed assignment. attempting to call report
--- NOTE | 2020-09-16 08:21 | NUR ---
no answer. will attempt again
--- NOTE | 2020-09-16 08:25 | NUR ---
attempting again to call report
--- NOTE | 2020-09-16 08:25 | NUR ---
pt still sleeping in position of comfort. no family at bedside. IV ABX ifusig
--- NOTE | 2020-09-16 08:31 | NUR ---
have attempted to call report, no answer
--- NOTE | 2020-09-16 08:48 | NUR ---
Report received briefly for care assumption while awaiting transport to floor. Off-going RN attempting to call report to floor for fourth attempt.
--- NOTE | 2020-09-16 08:49 | NUR ---
attempting to call report
--- NOTE | 2020-09-16 08:55 | NUR ---
attempted to call report
[2020-09-16] MEDS: SENNA/DOCUSATE TABLET PO SCH (09:00)
--- NOTE | 2020-09-16 09:05 | NUR ---
pt has been given urinal. pt is sleeping, holding urinal and has urinated on the floor
--- NOTE | 2020-09-16 09:11 | NUR ---
report called to Candi RICHTER
[2020-09-16 10:00] VITALS: BP 123/86
[2020-09-16] MEDS ORDERED: PHARMACOKINETIC MONITORING MC PRN (10:30)
[2020-09-16] MEDS: PIPERACILLIN/TAZO 4.5 GM in DEXTROSE 5% 100 ML IVPB SCH ×2 (12:37→21:11)
[2020-09-16] MEDS: ENOXAPARIN 40 MG/0.4 ML SQ SCH (12:38)
[2020-09-16] MEDS: POTASSIUM CHLORIDE 20 MEQ in LACTATED RINGERS 1,000 ML IV SCH (15:05)
[2020-09-16 15:07] VITALS: BP 113/82
[2020-09-16 17:50] LABS: AMPHETAMINE SCREEN, URINE Positive (Negative); BARBITURATE SCREEN, URINE Negative (Negative); BENZODIAZEPINE SCREEN, URINE Negative (Negative); COCAINE SCREEN, URINE Negative (Negative)
[2020-09-16 17:51] LABS: CANNABINOID SCREEN, URINE Positive (Negative); METHADONE SCREEN, URINE Negative (Negative); OPIATE SCREEN, URINE Negative (Negative)
[2020-09-16] MEDS ORDERED: VANCOMYCIN 1,400 MG in SODIUM CHLORIDE 0.9% 250 ML IV SCH (20:00)
[2020-09-16 20:49] VITALS: BP 116/78
[2020-09-17 02:21] VITALS: BP 109/69
[2020-09-17] MEDS: ACETAMINOPHEN 325 MG TABLET PO PRN (02:36)
[2020-09-17] MEDS: PIPERACILLIN/TAZO 4.5 GM in DEXTROSE 5% 100 ML IVPB SCH ×3 (03:29→15:29)
[2020-09-17] MEDS: POTASSIUM CHLORIDE 20 MEQ in LACTATED RINGERS 1,000 ML IV SCH ×2 (06:00→15:29)
[2020-09-17 06:53] VITALS: BP 120/76
[2020-09-17 07:41] LABS: BASOPHILS % (AUTO) 1 % (0-1); EOSINOPHILS % (AUTO) 2 % (1-7); LYMPHOCYTES % (AUTO) 25 % (22-44); MEAN CORPUSCULAR HEMOGLOBIN 30.8 pg (27.5-34.5); MEAN CORPUSCULAR HGB CONC 34.1 g/dL (33.2-36.2); MEAN PLATELET VOLUME 7.6 fL (7.4-10.4); MONOCYTES % (AUTO) 14 % (2-9); NEUTROPHILS % (AUTO) 58 % (42-75); PLATELET COUNT 225 x10^3/uL (130-400); RED BLOOD COUNT 4.36 x10^6/uL (4.38-5.82); RED CELL DISTRIBUTION WIDTH 15.8 % (9.4-14.8)
[2020-09-17 07:47] LABS: ALBUMIN 1.9 g/dL (3.4-5.0); CALCIUM 8.4 mg/dL (8.5-10.1)
[2020-09-17 07:51] LABS: ALANINE AMINOTRANSFERASE 9 U/L (12-78); ALKALINE PHOSPHATASE 68 U/L (45-117); BILIRUBIN,TOTAL 0.8 mg/dL (0.2-1.0); CREATININE 0.74 mg/dL (0.7-1.3); TOTAL PROTEIN 6.3 g/dL (6.4-8.2)
[2020-09-17 07:52] LABS: CHLORIDE 103 mmol/L (98-107)
[2020-09-17 07:54] LABS: ANION GAP 8 mmol/L (5-15)
[2020-09-17] MEDS ORDERED: POTASSIUM CHLORIDE 20 MEQ TAB.ER.PRT PO ONE (08:30)
[2020-09-17] MEDS: NICOTINE 21 MG/24 HR PATCH.TD24 TD SCH (09:10)
[2020-09-17] MEDS: SENNA/DOCUSATE TABLET PO SCH (09:10)
[2020-09-17] MEDS: ENOXAPARIN 40 MG/0.4 ML SQ SCH (12:20)
[2020-09-17] MEDS: VANCOMYCIN 1,500 MG in SODIUM CHLORIDE 0.9% 250 ML IV SCH (13:07)
[2020-09-17 13:52] VITALS: BP 115/75
[2020-09-17 19:31] VITALS: BP 136/85
[2020-09-17] MEDS: AMPICILLIN/SULBACTAM 3 GM in SODIUM CHLORIDE 0.9% 100 ML IV SCH (21:27)
[2020-09-18 00:19] VITALS: BP 150/97
[2020-09-18] MEDS ORDERED: OMNIPAQUE 350 MG/ML, 75ML BOTTLE ONE (01:01)
[2020-09-18] MEDS: VANCOMYCIN 1,500 MG in SODIUM CHLORIDE 0.9% 250 ML IV SCH ×2 (01:11→14:23)
[2020-09-18] MEDS: AMPICILLIN/SULBACTAM 3 GM in SODIUM CHLORIDE 0.9% 100 ML IV SCH ×4 (03:21→21:15)
[2020-09-18] MEDS: POTASSIUM CHLORIDE 20 MEQ in LACTATED RINGERS 1,000 ML IV SCH ×3 (03:43→22:32)
[2020-09-18 07:08] VITALS: BP 116/72
[2020-09-18] MEDS: SENNA/DOCUSATE TABLET PO SCH (09:36)
[2020-09-18] MEDS: NICOTINE 21 MG/24 HR PATCH.TD24 TD SCH (09:37)
[2020-09-18 12:05] VITALS: BP 130/80
[2020-09-18] MEDS: KETOROLAC 30 MG/1 ML IV PRN (12:48)
[2020-09-18] MEDS: ENOXAPARIN 40 MG/0.4 ML SQ SCH (12:49)
[2020-09-18 18:29] VITALS: BP 126/83
[2020-09-19 00:42] VITALS: BP 131/81
[2020-09-19] MEDS: VANCOMYCIN 1,500 MG in SODIUM CHLORIDE 0.9% 250 ML IV SCH ×2 (01:19→13:36)
[2020-09-19] MEDS: AMPICILLIN/SULBACTAM 3 GM in SODIUM CHLORIDE 0.9% 100 ML IV SCH ×4 (03:09→20:59)
[2020-09-19 06:41] VITALS: BP 116/70
[2020-09-19] MEDS ORDERED: POTASSIUM CHLORIDE 20 MEQ TAB.ER.PRT PO ONE (07:00)
[2020-09-19] MEDS: SENNA/DOCUSATE TABLET PO SCH (09:40)
[2020-09-19] MEDS: NICOTINE 21 MG/24 HR PATCH.TD24 TD SCH (09:41)
[2020-09-19] MEDS: POTASSIUM CHLORIDE 20 MEQ in LACTATED RINGERS 1,000 ML IV SCH ×2 (11:19→23:30)
[2020-09-19] MEDS: KETOROLAC 30 MG/1 ML IV PRN (13:16)
[2020-09-19] MEDS: SILVER SULF. CRM 1% , 25GM TP SCH (13:20)
[2020-09-19] MEDS: ENOXAPARIN 40 MG/0.4 ML SQ SCH (13:37)
[2020-09-19 13:43] VITALS: BP 133/80
[2020-09-19] MEDS: HYDROcodone/APAP 5/325 TABLET PO PRN (17:27)
[2020-09-19 19:05] VITALS: BP 125/80
[2020-09-20 01:08] LABS: BASOPHILS % (AUTO) 1 % (0-1); EOSINOPHILS % (AUTO) 4 % (1-7); LYMPHOCYTES % (AUTO) 45 % (22-44); MEAN CORPUSCULAR HEMOGLOBIN 30.6 pg (27.5-34.5); MEAN PLATELET VOLUME 7.4 fL (7.4-10.4); MONOCYTES % (AUTO) 18 % (2-9); NEUTROPHILS % (AUTO) 33 % (42-75); PLATELET COUNT 228 x10^3/uL (130-400); RED BLOOD COUNT 4.09 x10^6/uL (4.38-5.82); RED CELL DISTRIBUTION WIDTH 15.8 % (9.4-14.8)
[2020-09-20 01:13] VITALS: BP 138/78
[2020-09-20 01:19] LABS: ALBUMIN 1.5 g/dL (3.4-5.0); ANION GAP 4 mmol/L (5-15); CALCIUM 9.1 mg/dL (8.5-10.1); CHLORIDE 109 mmol/L (98-107)
[2020-09-20 01:22] LABS: ALANINE AMINOTRANSFERASE 11 U/L (12-78); ALKALINE PHOSPHATASE 56 U/L (45-117); BILIRUBIN,TOTAL 0.2 mg/dL (0.2-1.0); CREATININE 0.76 mg/dL (0.7-1.3); TOTAL PROTEIN 5.5 g/dL (6.4-8.2)
[2020-09-20] MEDS: VANCOMYCIN 1,500 MG in SODIUM CHLORIDE 0.9% 250 ML IV SCH (01:32)
[2020-09-20] MEDS: HYDROcodone/APAP 5/325 TABLET PO PRN ×4 (03:21→22:57)
[2020-09-20] MEDS: AMPICILLIN/SULBACTAM 3 GM in SODIUM CHLORIDE 0.9% 100 ML IV SCH ×4 (03:28→21:08)
[2020-09-20 07:23] VITALS: BP 135/84
[2020-09-20] MEDS: POTASSIUM CHLORIDE 20 MEQ in LACTATED RINGERS 1,000 ML IV SCH (09:00)
[2020-09-20] MEDS: NICOTINE 21 MG/24 HR PATCH.TD24 TD SCH (09:56)
[2020-09-20] MEDS: SILVER SULF. CRM 1% , 25GM TP SCH (09:56)
[2020-09-20] MEDS: SENNA/DOCUSATE TABLET PO SCH (09:57)
[2020-09-20] MEDS: ENOXAPARIN 40 MG/0.4 ML SQ SCH (12:14)
[2020-09-20 14:05] VITALS: BP 126/87
[2020-09-20 18:31] VITALS: BP 132/85
[2020-09-21 00:09] VITALS: BP 143/85
[2020-09-21] MEDS: AMPICILLIN/SULBACTAM 3 GM in SODIUM CHLORIDE 0.9% 100 ML IV SCH ×3 (03:00→15:44)
[2020-09-21 06:50] VITALS: BP 154/95
[2020-09-21] MEDS: HYDROcodone/APAP 5/325 TABLET PO PRN ×2 (08:52→15:43)
[2020-09-21] MEDS: POTASSIUM CHLORIDE 20 MEQ in LACTATED RINGERS 1,000 ML IV SCH (08:52)
[2020-09-21] MEDS: NICOTINE 21 MG/24 HR PATCH.TD24 TD SCH (08:53)
[2020-09-21] MEDS: SENNA/DOCUSATE TABLET PO SCH (08:53)
[2020-09-21] MEDS: SILVER SULF. CRM 1% , 25GM TP SCH (08:54)
[2020-09-21 13:40] VITALS: BP 142/84
[2020-09-21] MEDS: ENOXAPARIN 40 MG/0.4 ML SQ SCH (15:43)
[2020-09-21] MEDS ORDERED: MORPHINE SULFATE 4 MG/ML, 1ML IVPush PRN (17:00)
[2020-09-21 19:25] VITALS: BP 146/81
[2020-09-22 00:36] VITALS: BP 132/69
[2020-09-22] MEDS: HYDROcodone/APAP 5/325 TABLET PO PRN ×3 (00:58→18:43)
[2020-09-22] MEDS: AMPICILLIN/SULBACTAM 3 GM in SODIUM CHLORIDE 0.9% 100 ML IV SCH ×3 (01:23→18:02)
[2020-09-22 06:20] VITALS: BP 122/75
[2020-09-22] MEDS: SENNA/DOCUSATE TABLET PO SCH (08:52)
[2020-09-22] MEDS: NICOTINE 21 MG/24 HR PATCH.TD24 TD SCH (09:00)
[2020-09-22] MEDS: SILVER SULF. CRM 1% , 25GM TP SCH (09:36)
[2020-09-22 10:08] LABS: BASOPHILS % (AUTO) 1 % (0-1); EOSINOPHILS % (AUTO) 3 % (1-7); LYMPHOCYTES % (AUTO) 28 % (22-44); MEAN CORPUSCULAR HEMOGLOBIN 30.3 pg (27.5-34.5); MEAN CORPUSCULAR HGB CONC 33.7 g/dL (33.2-36.2); MEAN PLATELET VOLUME 7.3 fL (7.4-10.4); MONOCYTES % (AUTO) 13 % (2-9); NEUTROPHILS % (AUTO) 56 % (42-75); PLATELET COUNT 269 x10^3/uL (130-400); RED BLOOD COUNT 3.97 x10^6/uL (4.38-5.82); RED CELL DISTRIBUTION WIDTH 15.7 % (9.4-14.8)
[2020-09-22 10:18] LABS: ALANINE AMINOTRANSFERASE 12 U/L (12-78); ALBUMIN 1.8 g/dL (3.4-5.0); CALCIUM 8.5 mg/dL (8.5-10.1); CREATININE 0.73 mg/dL (0.7-1.3)
[2020-09-22 10:20] LABS: ALKALINE PHOSPHATASE 52 U/L (45-117); ANION GAP 7 mmol/L (5-15); BILIRUBIN,TOTAL 0.3 mg/dL (0.2-1.0); CHLORIDE 110 mmol/L (98-107); TOTAL PROTEIN 5.7 g/dL (6.4-8.2)
[2020-09-22] MEDS: ENOXAPARIN 40 MG/0.4 ML SQ SCH (11:58)
[2020-09-22 13:01] VITALS: BP 149/92
[2020-09-22] MEDS: ACETAMINOPHEN 325 MG TABLET PO PRN (18:43)
[2020-09-22 19:26] VITALS: BP 154/91
[2020-09-23] MEDS: AMPICILLIN/SULBACTAM 3 GM in SODIUM CHLORIDE 0.9% 100 ML IV SCH ×4 (00:01→18:16)
[2020-09-23 02:31] VITALS: BP 158/84
[2020-09-23 06:43] VITALS: BP 155/89
[2020-09-23] MEDS: SENNA/DOCUSATE TABLET PO SCH (08:17)
[2020-09-23] MEDS: NICOTINE 21 MG/24 HR PATCH.TD24 TD SCH (08:18)
[2020-09-23] MEDS: HYDROcodone/APAP 5/325 TABLET PO PRN ×2 (08:18→19:52)
[2020-09-23] MEDS: SILVER SULF. CRM 1% , 25GM TP SCH (08:22)
[2020-09-23] MEDS: ONDANSETRON 2MG/ML, 2ML IVPush PRN ×2 (08:30→19:52)
[2020-09-23 12:51] VITALS: BP 148/84
[2020-09-23] MEDS: ENOXAPARIN 40 MG/0.4 ML SQ SCH (13:15)
[2020-09-23 19:03] VITALS: BP 157/94
[2020-09-24] MEDS: AMPICILLIN/SULBACTAM 3 GM in SODIUM CHLORIDE 0.9% 100 ML IV SCH ×4 (00:11→18:19)
[2020-09-24 00:47] VITALS: BP 130/77
[2020-09-24 07:48] VITALS: BP 147/86
[2020-09-24] MEDS: HYDROcodone/APAP 5/325 TABLET PO PRN ×2 (08:34→18:23)
[2020-09-24] MEDS: NICOTINE 21 MG/24 HR PATCH.TD24 TD SCH (08:35)
[2020-09-24] MEDS: SENNA/DOCUSATE TABLET PO SCH (08:35)
[2020-09-24 12:28] VITALS: BP 148/88
[2020-09-24] MEDS: ENOXAPARIN 40 MG/0.4 ML SQ SCH (14:04)
[2020-09-24] MEDS: SILVER SULF. CRM 1% , 25GM TP SCH (14:06)
[2020-09-24 20:14] VITALS: BP 146/88
[2020-09-25] MEDS: TRAZODONE 50MG TABLET PO PRN (00:26)
[2020-09-25] MEDS: AMPICILLIN/SULBACTAM 3 GM in SODIUM CHLORIDE 0.9% 100 ML IV SCH ×3 (00:28→12:41)
[2020-09-25 01:22] VITALS: BP 143/89
[2020-09-25 07:13] VITALS: BP 135/80
[2020-09-25] MEDS: SENNA/DOCUSATE TABLET PO SCH (09:49)
[2020-09-25] MEDS: NICOTINE 21 MG/24 HR PATCH.TD24 TD SCH (09:50)
[2020-09-25] MEDS: SILVER SULF. CRM 1% , 25GM TP SCH (09:50)
[2020-09-25 12:16] VITALS: BP 121/80
[2020-09-25] MEDS: ENOXAPARIN 40 MG/0.4 ML SQ SCH (12:41)
[2020-09-25] MEDS: HYDROcodone/APAP 5/325 TABLET PO PRN ×2 (12:47→18:41)
[2020-09-25] MEDS: AMOXICILLIN/CLAV 875-125MG TABLET PO SCH (13:22)
[2020-09-25 19:28] VITALS: BP 144/87
[2020-09-25] MEDS: POLYETHYLENE GLYCOL 17 GM PACKET PO PRN (21:42)
[2020-09-26 00:27] VITALS: BP 144/87
[2020-09-26] MEDS: AMOXICILLIN/CLAV 875-125MG TABLET PO SCH ×2 (00:43→12:29)
[2020-09-26] MEDS: MELATONIN 5 MG TABLET PO PRN (01:39)
[2020-09-26 06:04] LABS: BASOPHILS % (AUTO) 1 % (0-1); EOSINOPHILS % (AUTO) 3 % (1-7); LYMPHOCYTES % (AUTO) 36 % (22-44); MEAN CORPUSCULAR HGB CONC 34.4 g/dL (33.2-36.2); MEAN PLATELET VOLUME 7.5 fL (7.4-10.4); MONOCYTES % (AUTO) 16 % (2-9); NEUTROPHILS % (AUTO) 45 % (42-75); PLATELET COUNT 281 x10^3/uL (130-400); RED CELL DISTRIBUTION WIDTH 16.5 % (9.4-14.8)
[2020-09-26 06:11] LABS: CREATININE 0.62 mg/dL (0.7-1.3)
[2020-09-26 06:48] VITALS: BP 121/74
[2020-09-26] MEDS: SENNA/DOCUSATE TABLET PO SCH (09:10)
[2020-09-26] MEDS: NICOTINE 21 MG/24 HR PATCH.TD24 TD SCH (09:10)
[2020-09-26] MEDS: POLYETHYLENE GLYCOL 17 GM PACKET PO PRN (10:57)
[2020-09-26] MEDS: SILVER SULF. CRM 1% , 25GM TP SCH (11:11)
[2020-09-26] MEDS: ENOXAPARIN 40 MG/0.4 ML SQ SCH (12:20)
[2020-09-26 14:22] VITALS: BP 164/99
[2020-09-26 18:37] VITALS: BP 146/96
[2020-09-27] MEDS: AMOXICILLIN/CLAV 875-125MG TABLET PO SCH ×2 (01:08→12:27)
[2020-09-27 01:27] VITALS: BP 144/90
[2020-09-27 06:34] LABS: BASOPHILS % (AUTO) 1 % (0-1); EOSINOPHILS % (AUTO) 3 % (1-7); LYMPHOCYTES % (AUTO) 37 % (22-44); MEAN CORPUSCULAR HEMOGLOBIN 30.9 pg (27.5-34.5); MEAN CORPUSCULAR HGB CONC 34.6 g/dL (33.2-36.2); MEAN PLATELET VOLUME 7.7 fL (7.4-10.4); MONOCYTES % (AUTO) 16 % (2-9); NEUTROPHILS % (AUTO) 43 % (42-75); PLATELET COUNT 289 x10^3/uL (130-400); RED BLOOD COUNT 3.62 x10^6/uL (4.38-5.82); RED CELL DISTRIBUTION WIDTH 16.6 % (9.4-14.8)
[2020-09-27 06:38] LABS: ANION GAP 4 mmol/L (5-15); CALCIUM 8.2 mg/dL (8.5-10.1); CHLORIDE 112 mmol/L (98-107); CREATININE 0.65 mg/dL (0.7-1.3)
[2020-09-27 07:36] VITALS: BP 131/85
[2020-09-27] MEDS: SENNA/DOCUSATE TABLET PO SCH ×2 (09:00→12:28)
[2020-09-27] MEDS: NICOTINE 21 MG/24 HR PATCH.TD24 TD SCH (09:49)
[2020-09-27] MEDS: ENOXAPARIN 40 MG/0.4 ML SQ SCH (12:26)
[2020-09-27 13:18] VITALS: BP 142/85
[2020-09-27] MEDS: SILVER SULF. CRM 1% , 25GM TP SCH (15:27)
[2020-09-27 19:29] VITALS: BP 146/90
[2020-09-27] MEDS: MELATONIN 5 MG TABLET PO PRN (22:02)
[2020-09-28] MEDS: AMOXICILLIN/CLAV 875-125MG TABLET PO SCH ×2 (01:00→13:27)
[2020-09-28 01:08] VITALS: BP 123/79
[2020-09-28 07:40] VITALS: BP 130/80
[2020-09-28] MEDS: NICOTINE 21 MG/24 HR PATCH.TD24 TD SCH (09:15)
[2020-09-28] MEDS: SILVER SULF. CRM 1% , 25GM TP SCH (09:16)
[2020-09-28] MEDS: SENNA/DOCUSATE TABLET PO SCH (09:16)
[2020-09-28 13:27] VITALS: BP 154/91
[2020-09-28] MEDS: ENOXAPARIN 40 MG/0.4 ML SQ SCH (13:27)
[2020-09-28 19:26] VITALS: BP 142/88
[2020-09-28] MEDS: TRAZODONE 50MG TABLET PO PRN (21:17)
[2020-09-29 00:23] VITALS: BP 126/81
[2020-09-29] MEDS: AMOXICILLIN/CLAV 875-125MG TABLET PO SCH ×2 (02:19→12:49)
[2020-09-29 07:59] VITALS: BP 122/79
[2020-09-29 08:26] LABS: CREATININE 0.66 mg/dL (0.7-1.3)
[2020-09-29] MEDS: SENNA/DOCUSATE TABLET PO SCH (09:00)
[2020-09-29] MEDS: LORATADINE/PSE 5/120MG TAB.ER.12H PO SCH ×2 (09:51→21:01)
[2020-09-29] MEDS: SODIUM CHLORIDE NASAL SPRAY 45ML BOTTLE NAS SCH ×3 (09:51→21:00)
[2020-09-29] MEDS: SILVER SULF. CRM 1% , 25GM TP SCH (09:51)
[2020-09-29] MEDS: ACETAMINOPHEN 325 MG TABLET PO PRN (09:51)
[2020-09-29] MEDS: FLUTICASONE NASAL SPRAY 16GM NAS SCH (09:51)
[2020-09-29] MEDS: NICOTINE 21 MG/24 HR PATCH.TD24 TD SCH (09:52)
[2020-09-29] MEDS: ENOXAPARIN 40 MG/0.4 ML SQ SCH (12:49)
[2020-09-29 13:23] VITALS: BP 150/92
[2020-09-29 19:23] VITALS: BP 160/96
[2020-09-29] MEDS: TRAZODONE 50MG TABLET PO PRN (21:01)
[2020-09-30 00:07] VITALS: BP 153/90
[2020-09-30] MEDS: SODIUM CHLORIDE NASAL SPRAY 45ML BOTTLE NAS SCH ×5 (03:00→22:56)
[2020-09-30 06:45] LABS: BASOPHILS % (AUTO) 1 % (0-1); EOSINOPHILS % (AUTO) 4 % (1-7); LYMPHOCYTES % (AUTO) 46 % (22-44); MEAN CORPUSCULAR HEMOGLOBIN 30.7 pg (27.5-34.5); MEAN CORPUSCULAR HGB CONC 34.1 g/dL (33.2-36.2); MEAN PLATELET VOLUME 7.3 fL (7.4-10.4); MONOCYTES % (AUTO) 14 % (2-9); NEUTROPHILS % (AUTO) 35 % (42-75); PLATELET COUNT 304 x10^3/uL (130-400); RED BLOOD COUNT 4.03 x10^6/uL (4.38-5.82); RED CELL DISTRIBUTION WIDTH 16.6 % (9.4-14.8)
[2020-09-30 06:47] LABS: HCT (SEDRATE) 36.2 % (39.2-51.8)
[2020-09-30 06:54] LABS: ANION GAP 5 mmol/L (5-15); C-REACTIVE PROTEIN, QUANT 0.41 mg/dL (0.02-0.49); CALCIUM 8.5 mg/dL (8.5-10.1); CHLORIDE 112 mmol/L (98-107)
[2020-09-30 08:06] VITALS: BP 132/87
[2020-09-30] MEDS: FLUTICASONE NASAL SPRAY 16GM NAS SCH (08:33)
[2020-09-30] MEDS: SILVER SULF. CRM 1% , 25GM TP SCH (08:34)
[2020-09-30] MEDS: LORATADINE/PSE 5/120MG TAB.ER.12H PO SCH ×2 (08:34→22:26)
[2020-09-30] MEDS: NICOTINE 21 MG/24 HR PATCH.TD24 TD SCH (08:34)
[2020-09-30] MEDS: ENOXAPARIN 40 MG/0.4 ML SQ SCH (12:23)
[2020-09-30 14:46] VITALS: BP 105/71
[2020-09-30 20:42] VITALS: BP 144/60
[2020-09-30] MEDS: POLYETHYLENE GLYCOL 17 GM PACKET PO PRN (22:24)
[2020-09-30] MEDS: MELATONIN 5 MG TABLET PO PRN (22:26)
[2020-09-30] MEDS: TRAZODONE 50MG TABLET PO PRN (22:27)
[2020-10-01 00:15] VITALS: BP 144/96
[2020-10-01 07:14] VITALS: BP 128/85
[2020-10-01] MEDS: SILVER SULF. CRM 1% , 25GM TP SCH (08:50)
[2020-10-01] MEDS: SODIUM CHLORIDE NASAL SPRAY 45ML BOTTLE NAS SCH ×4 (08:50→21:46)
[2020-10-01] MEDS: FLUTICASONE NASAL SPRAY 16GM NAS SCH (08:50)
[2020-10-01] MEDS: NICOTINE 21 MG/24 HR PATCH.TD24 TD SCH (08:50)
[2020-10-01] MEDS: LORATADINE/PSE 5/120MG TAB.ER.12H PO SCH ×2 (08:50→21:45)
[2020-10-01] MEDS: LISINOPRIL 10 MG TABLET PO SCH (11:48)
[2020-10-01] MEDS: ENOXAPARIN 40 MG/0.4 ML SQ SCH (11:48)
[2020-10-01 12:20] VITALS: BP 158/94
[2020-10-01 19:43] VITALS: BP_SYST 136; BP_SYST 36; BP_DIAS 81
[2020-10-01] MEDS: TRAZODONE 50MG TABLET PO PRN (21:45)
[2020-10-01 23:44] VITALS: BP 110/69
[2020-10-02 06:56] LABS: CREATININE 0.58 mg/dL (0.7-1.3)
[2020-10-02] MEDS: NICOTINE 21 MG/24 HR PATCH.TD24 TD SCH (10:41)
[2020-10-02] MEDS: LISINOPRIL 10 MG TABLET PO SCH (10:42)
[2020-10-02] MEDS: LORATADINE/PSE 5/120MG TAB.ER.12H PO SCH ×2 (10:42→22:15)
[2020-10-02] MEDS: FLUTICASONE NASAL SPRAY 16GM NAS SCH (10:42)
[2020-10-02] MEDS: SODIUM CHLORIDE NASAL SPRAY 45ML BOTTLE NAS SCH ×3 (10:42→21:00)
[2020-10-02 10:48] VITALS: BP 115/71
[2020-10-02] MEDS: ENOXAPARIN 40 MG/0.4 ML SQ SCH (10:53)
[2020-10-02 15:31] VITALS: BP 122/85
[2020-10-02 19:01] VITALS: BP 128/86
[2020-10-02] MEDS: TRAZODONE 50MG TABLET PO PRN (22:07)
[2020-10-03 00:49] VITALS: BP 117/74
[2020-10-03] MEDS: SODIUM CHLORIDE NASAL SPRAY 45ML BOTTLE NAS SCH (02:48)
[2020-10-03] MEDS ORDERED: SODIUM CHLORIDE NASAL SPRAY 45ML BOTTLE NAS PRN (06:30)
[2020-10-03 07:38] VITALS: BP 105/68
[2020-10-03] MEDS: FLUTICASONE NASAL SPRAY 16GM NAS SCH (09:00)
[2020-10-03] MEDS: LISINOPRIL 10 MG TABLET PO SCH (09:13)
[2020-10-03] MEDS: LORATADINE/PSE 5/120MG TAB.ER.12H PO SCH ×2 (09:13→21:51)
[2020-10-03] MEDS: NICOTINE 21 MG/24 HR PATCH.TD24 TD SCH (09:13)
[2020-10-03] MEDS: ENOXAPARIN 40 MG/0.4 ML SQ SCH (11:37)
[2020-10-03 13:41] VITALS: BP 133/87
[2020-10-03 20:24] VITALS: BP 111/74
[2020-10-03] MEDS: MELATONIN 5 MG TABLET PO PRN (21:51)
[2020-10-04 00:14] VITALS: BP 102/69
[2020-10-04 07:03] VITALS: BP 115/72
[2020-10-04] MEDS: LISINOPRIL 5 MG TABLET PO SCH (08:02)
[2020-10-04] MEDS: LORATADINE/PSE 5/120MG TAB.ER.12H PO SCH ×2 (08:03→20:23)
[2020-10-04] MEDS: FLUTICASONE NASAL SPRAY 16GM NAS SCH (08:03)
[2020-10-04] MEDS: NICOTINE 21 MG/24 HR PATCH.TD24 TD SCH (08:03)
[2020-10-04 12:39] VITALS: BP 127/81
[2020-10-04] MEDS: ENOXAPARIN 40 MG/0.4 ML SQ SCH (12:53)
[2020-10-04] MEDS: NYSTATIN OINT 15GM TP SCH ×2 (16:00→20:23)
[2020-10-04 19:38] VITALS: BP 120/79
[2020-10-05 00:19] VITALS: BP 124/88
[2020-10-05] MEDS: MELATONIN 5 MG TABLET PO PRN ×2 (02:33→21:32)
[2020-10-05 06:39] VITALS: BP 115/76
[2020-10-05] MEDS: LISINOPRIL 5 MG TABLET PO SCH (09:53)
[2020-10-05] MEDS: NICOTINE 21 MG/24 HR PATCH.TD24 TD SCH (09:53)
[2020-10-05] MEDS: NYSTATIN OINT 15GM TP SCH ×3 (09:54→21:32)
[2020-10-05] MEDS: ENOXAPARIN 40 MG/0.4 ML SQ SCH (12:09)
[2020-10-05 12:33] VITALS: BP 122/86
[2020-10-05] MEDS: POLYETHYLENE GLYCOL 17 GM PACKET PO PRN (18:05)
[2020-10-05 20:36] VITALS: BP 128/84
[2020-10-05] MEDS: TRAZODONE 50MG TABLET PO PRN (21:32)
[2020-10-06 01:25] VITALS: BP 122/83
[2020-10-06] MEDS: ACETAMINOPHEN 325 MG TABLET PO PRN (09:01)
[2020-10-06] MEDS: LISINOPRIL 5 MG TABLET PO SCH (09:01)
[2020-10-06] MEDS: NICOTINE 21 MG/24 HR PATCH.TD24 TD SCH (09:02)
[2020-10-06] MEDS: NYSTATIN OINT 15GM TP SCH ×3 (09:02→21:16)
[2020-10-06 09:05] VITALS: BP 120/76
[2020-10-06] MEDS: ENOXAPARIN 40 MG/0.4 ML SQ SCH (11:35)
[2020-10-06] MEDS: DIAZEPAM 2 MG TABLET PO PRN (11:35)
[2020-10-06 13:50] VITALS: BP 107/74
[2020-10-06 20:24] VITALS: BP 118/77
[2020-10-07 00:30] VITALS: BP 144/91
[2020-10-07] MEDS: NICOTINE 21 MG/24 HR PATCH.TD24 TD SCH (09:41)
[2020-10-07] MEDS: LISINOPRIL 5 MG TABLET PO SCH (09:41)
[2020-10-07] MEDS: NYSTATIN OINT 15GM TP SCH ×3 (09:42→21:10)
[2020-10-07 12:44] VITALS: BP 121/83
[2020-10-07] MEDS: ENOXAPARIN 40 MG/0.4 ML SQ SCH (13:39)
[2020-10-07 20:35] VITALS: BP 113/80
[2020-10-08 00:15] VITALS: BP 113/71
[2020-10-08 06:25] VITALS: BP 129/90
[2020-10-08] MEDS: NICOTINE 21 MG/24 HR PATCH.TD24 TD SCH (08:12)
[2020-10-08] MEDS: LISINOPRIL 5 MG TABLET PO SCH (08:12)
[2020-10-08] MEDS: NYSTATIN OINT 15GM TP SCH ×3 (08:16→21:04)
[2020-10-08] MEDS: ACETAMINOPHEN 325 MG TABLET PO PRN (11:31)
[2020-10-08] MEDS: ENOXAPARIN 40 MG/0.4 ML SQ SCH (12:00)
[2020-10-08 12:59] VITALS: BP 126/79
[2020-10-08 19:05] VITALS: BP 155/77
[2020-10-09 00:22] VITALS: BP 118/79
[2020-10-09 07:47] VITALS: BP 122/87
[2020-10-09] MEDS: NICOTINE 21 MG/24 HR PATCH.TD24 TD SCH (08:03)
[2020-10-09] MEDS: NYSTATIN OINT 15GM TP SCH ×3 (08:04→20:41)
[2020-10-09] MEDS: LISINOPRIL 5 MG TABLET PO SCH (08:04)
[2020-10-09] MEDS: ENOXAPARIN 40 MG/0.4 ML SQ SCH (12:00)
[2020-10-09 13:36] VITALS: BP 120/83
[2020-10-09 18:38] VITALS: BP 107/71
[2020-10-09] MEDS: TRAZODONE 50MG TABLET PO PRN (20:41)
[2020-10-10 00:53] VITALS: BP 112/75
[2020-10-10] MEDS: NICOTINE 21 MG/24 HR PATCH.TD24 TD SCH (09:48)
[2020-10-10] MEDS: DIAZEPAM 2 MG TABLET PO PRN (09:49)
[2020-10-10] MEDS: NYSTATIN OINT 15GM TP SCH ×3 (09:50→20:04)
[2020-10-10] MEDS: LISINOPRIL 5 MG TABLET PO SCH (09:50)
[2020-10-10] MEDS: ENOXAPARIN 40 MG/0.4 ML SQ SCH (14:28)
[2020-10-10 14:36] VITALS: BP 124/86
[2020-10-10 19:00] VITALS: BP 125/78
[2020-10-11] MEDS: DIAZEPAM 2 MG TABLET PO PRN (01:49)
[2020-10-11 02:36] VITALS: BP 111/73
[2020-10-11 06:44] VITALS: BP 124/77
[2020-10-11 07:23] LABS: CREATININE 0.64 mg/dL (0.7-1.3)
[2020-10-11] MEDS: NICOTINE 21 MG/24 HR PATCH.TD24 TD SCH (09:33)
[2020-10-11] MEDS: LISINOPRIL 5 MG TABLET PO SCH (09:34)
[2020-10-11] MEDS: NYSTATIN OINT 15GM TP SCH ×3 (09:35→21:47)
[2020-10-11] MEDS: ENOXAPARIN 40 MG/0.4 ML SQ SCH (12:59)
[2020-10-11 14:24] VITALS: BP 110/74
[2020-10-11 19:05] VITALS: BP 104/67
[2020-10-11] MEDS: METHOCARBAMOL 500 MG TABLET PO PRN (21:52)
[2020-10-11] MEDS: MELATONIN 5 MG TABLET PO PRN (21:52)
[2020-10-12 00:29] VITALS: BP 104/68
[2020-10-12 07:19] VITALS: BP 109/72
[2020-10-12] MEDS: LISINOPRIL 5 MG TABLET PO SCH (08:51)
[2020-10-12] MEDS: NICOTINE 21 MG/24 HR PATCH.TD24 TD SCH (08:56)
[2020-10-12] MEDS: NYSTATIN OINT 15GM TP SCH ×3 (09:00→20:53)
[2020-10-12] MEDS: ENOXAPARIN 40 MG/0.4 ML SQ SCH (14:12)
[2020-10-12 14:39] VITALS: BP 112/74
[2020-10-12 18:20] VITALS: BP 130/77
[2020-10-12] MEDS: MELATONIN 5 MG TABLET PO PRN (20:44)
[2020-10-12] MEDS: METHOCARBAMOL 500 MG TABLET PO PRN (20:44)
[2020-10-13 00:58] VITALS: BP 115/80
[2020-10-13 07:35] VITALS: BP 101/62
[2020-10-13] MEDS: NYSTATIN OINT 15GM TP SCH ×3 (09:00→21:40)
[2020-10-13] MEDS: NICOTINE 21 MG/24 HR PATCH.TD24 TD SCH (10:27)
[2020-10-13] MEDS: LISINOPRIL 5 MG TABLET PO SCH (10:28)
[2020-10-13] MEDS: ENOXAPARIN 40 MG/0.4 ML SQ SCH (10:28)
[2020-10-13 12:52] VITALS: BP 114/76
[2020-10-13 19:49] VITALS: BP 111/69
[2020-10-14 01:40] VITALS: BP 122/85
[2020-10-14] MEDS: DIAZEPAM 2 MG TABLET PO PRN (01:56)
[2020-10-14 06:26] LABS: CREATININE 0.67 mg/dL (0.7-1.3)
[2020-10-14] MEDS: NYSTATIN OINT 15GM TP SCH ×3 (09:00→20:44)
[2020-10-14] MEDS: NICOTINE 21 MG/24 HR PATCH.TD24 TD SCH (09:30)
[2020-10-14] MEDS: LISINOPRIL 5 MG TABLET PO SCH (09:30)
[2020-10-14] MEDS: ENOXAPARIN 40 MG/0.4 ML SQ SCH (12:23)
[2020-10-14] MEDS: METHOCARBAMOL 500 MG TABLET PO PRN ×2 (12:23→20:44)
[2020-10-14 14:03] VITALS: BP 107/74
[2020-10-14 18:42] VITALS: BP 113/71
[2020-10-14] MEDS: ACETAMINOPHEN 325 MG TABLET PO PRN (20:44)
[2020-10-15 00:01] VITALS: BP 99/67
[2020-10-15 07:56] VITALS: BP 107/72
[2020-10-15] MEDS: NICOTINE 21 MG/24 HR PATCH.TD24 TD SCH (09:00)
[2020-10-15] MEDS: LISINOPRIL 5 MG TABLET PO SCH (09:52)
[2020-10-15] MEDS: NYSTATIN OINT 15GM TP SCH ×3 (09:54→21:00)
[2020-10-15] MEDS: ENOXAPARIN 40 MG/0.4 ML SQ SCH (12:47)
[2020-10-15 13:25] VITALS: BP 106/71
[2020-10-15] MEDS: ACETAMINOPHEN 325 MG TABLET PO PRN ×2 (14:58→22:19)
[2020-10-15 20:16] VITALS: BP 109/67
[2020-10-16 00:13] VITALS: BP 118/69
[2020-10-16 07:13] VITALS: BP 105/70
[2020-10-16] MEDS: LISINOPRIL 5 MG TABLET PO SCH (08:50)
[2020-10-16] MEDS: NYSTATIN OINT 15GM TP SCH ×3 (08:51→21:00)
[2020-10-16] MEDS: NICOTINE 21 MG/24 HR PATCH.TD24 TD SCH (08:51)
[2020-10-16] MEDS: ENOXAPARIN 40 MG/0.4 ML SQ SCH (11:32)
[2020-10-16 12:45] VITALS: BP 125/75
[2020-10-16] MEDS: ACETAMINOPHEN 325 MG TABLET PO PRN (15:44)
[2020-10-16 20:55] VITALS: BP 113/80
[2020-10-17 00:15] VITALS: BP 121/80
[2020-10-17 06:00] LABS: CREATININE 0.67 mg/dL (0.7-1.3)
[2020-10-17 07:33] VITALS: BP 120/65
[2020-10-17] MEDS: LISINOPRIL 5 MG TABLET PO SCH (08:47)
[2020-10-17] MEDS: NYSTATIN OINT 15GM TP SCH (08:48)
[2020-10-17] MEDS: NICOTINE 21 MG/24 HR PATCH.TD24 TD SCH (08:48)
[2020-10-17] MEDS ORDERED: LISI5TAB7 PO (10:59)
[2020-10-17] MEDS: ENOXAPARIN 40 MG/0.4 ML SQ SCH (11:22)
[2020-10-17 13:26] VITALS: BP 124/80
== END 2020-10-17 15:30 | DRG 917 ==
LOC: ED 06:20 → SUATTDRO 07:45 → MERGE 09:58 → EDBD 09:58 → 3N 09:58
PROVIDERS: ADMIT Internal Medicine; ATTEND Hospitalist
DX: T43.621A Poisoning by amphetamines, accidental (unintentional), initial encounter (principal); E43 Unspecified severe protein-calorie malnutrition; G92 Toxic encephalopathy; L03.116 Cellulitis of left lower limb; F12.129 Cannabis abuse with intoxication, unspecified; X58.XXXA Exposure to other specified factors, initial encounter; M19.012 Primary osteoarthritis, left shoulder; L30.4 Erythema intertrigo; J31.0 Chronic rhinitis; I10 Essential (primary) hypertension; F17.200 Nicotine dependence, unspecified, uncomplicated; F15.90 Other stimulant use, unspecified, uncomplicated; F12.10 Cannabis abuse, uncomplicated; F10.10 Alcohol abuse, uncomplicated; L97.519 Non-pressure chronic ulcer of other part of right foot with unspecified severity; Z89.512 Acquired absence of left leg below knee; Z87.820 Personal history of traumatic brain injury; Z87.442 Personal history of urinary calculi; Z59.0 Homelessness; Z68.26 Body mass index [BMI] 26.0-26.9, adult; R41.82 Altered mental status, unspecified
CPT/HCPCS: 36415; 70450; 71045; 71260; 80048; 80053; 80202; 80307; 80320; 82565; 83605; 84145; 85025; 85651; 86140; 87040; 87070; 87077; 87147; 87186; 87205; 93005; 96365; 96366; 96367; G0378; J0295; J1650; J1885; J2405; J2543; J3370; J3480; Q9967; G0480; J2270; J7050; J7120

== ENCOUNTER 2020-10-23 11:12 | Emergency (ER) | payer MEDICAID, MEDICARE ==
[~2020-10-23] VITALS: Ht 167.6 cm; Wt 70.0 kg
[~2020-10-23 11:12] MED LIST changes: +LISI5TAB7 PO
[2020-10-23] MEDS ORDERED: PLEASE ENTER HEIGHT AND WEIGHT MC SCH (12:00)
[2020-10-23] MEDS ORDERED: SODIUM CHLORIDE FLUSH 10ML SYR IVF ONE (12:00)
[2020-10-23] MEDS ORDERED: VANCOMYCIN PER PHARMACY MC ONE (12:00)
--- NOTE | 2020-10-23 12:05 | NUR ---
LAB AT BEDSIDE FOR FULL SET OF LABS INCLUDING BLOOD CULTURES X2
[2020-10-23 12:14] LABS: BASOPHILS % (AUTO) 0 % (0-1); EOSINOPHILS % (AUTO) 1 % (1-7); LYMPHOCYTES % (AUTO) 23 % (22-44); MEAN CORPUSCULAR HEMOGLOBIN 31.7 pg (27.5-34.5); MEAN CORPUSCULAR HGB CONC 34.4 g/dL (33.2-36.2); MEAN PLATELET VOLUME 8.4 fL (7.4-10.4); MONOCYTES % (AUTO) 8 % (2-9); NEUTROPHILS % (AUTO) 67 % (42-75); PLATELET COUNT 237 x10^3/uL (130-400); RED BLOOD COUNT 4.53 x10^6/uL (4.38-5.82); RED CELL DISTRIBUTION WIDTH 15.2 % (9.4-14.8)
[2020-10-23 12:21] LABS: ALANINE AMINOTRANSFERASE 13 U/L (12-78); ALBUMIN 3.5 g/dL (3.4-5.0); ANION GAP 9 mmol/L (5-15); CALCIUM 9.5 mg/dL (8.5-10.1); CHLORIDE 108 mmol/L (98-107); CREATININE 0.87 mg/dL (0.7-1.3)
[2020-10-23 12:23] LABS: ALKALINE PHOSPHATASE 83 U/L (45-117); BILIRUBIN,TOTAL 0.7 mg/dL (0.2-1.0); TOTAL PROTEIN 8.1 g/dL (6.4-8.2)
[2020-10-23 13:48] VITALS: BP 122/73
[2020-10-23] MEDS ORDERED: VANCOMYCIN 1,800 MG in SODIUM CHLORIDE 0.9% 250 ML IV ONE (14:00)
--- NOTE | 2020-10-23 15:03 | NUR ---
SW CALLED TO ASSIST WITH DISPO
--- NOTE | 2020-10-23 15:04 | NUR ---
REPORT TO AYDIN RICHTER
--- NOTE | 2020-10-23 15:05 | NUR ---
REPORT FROM FRANKY RICHTER
--- NOTE | 2020-10-23 17:10 | NUR ---
[facility] HERE FOR PT. PT GIVEN CLEAN CLOTHES AND HELEPD DRESSED. PT IN WHEELCHAIR AND GIVEN DC INSTRUCTIONS WITH SCRIPT. PT AT BASELINE MOBILITY.
== END 2020-10-23 17:59 | disposition home or self-care (01) ==
LOC: ED 16:32
DX: L03.116 Cellulitis of left lower limb (principal); R50.9 Fever, unspecified; J44.9 Chronic obstructive pulmonary disease, unspecified; F17.200 Nicotine dependence, unspecified, uncomplicated; Z89.512 Acquired absence of left leg below knee
CPT/HCPCS: 36415; 71045; 80053; 83605; 85025; 87040; 96365; 99284; J3370; J7050

== ENCOUNTER 2020-10-27 10:15 | Emergency (ER) | payer MEDICAID, MEDICARE ==
[~2020-10-27] VITALS: Ht 172.7 cm; Wt 80.0 kg
--- NOTE | 2020-10-27 10:44 | NUR ---
PT FOUND BY BERNY SAUERASSADOSTERLING SLEEPING ON GROUND OUTSIDE A [place]OWNTOWN. ETOH BOTTLES WERE ALSO FOUND WITH PT. PT WAS ORIGNALLY HYPOTHERMIC FOR EMS AT 95 DEGREES. PT 97.5 NOW. PT RESTING IN RNEY. BLANKETS ON FOR WARMING MEASURES. CONNECTED TO MONITORING EQUIPMENT. ROB, AMBASSADOR, REQUESTS A PHONE CALL UPON HIS DC. [phone]. SHE WILL HELP HIM GET BACK INTO CUSTODIAL
--- NOTE | 2020-10-27 11:04 | NUR ---
PT SLEEPING ON GURNEY CALMLY, NAD/VSS, NO NEEDS AT THIS TIME, CALL LIGHT WITHIN REACH.
--- NOTE | 2020-10-27 12:01 | NUR ---
PT CONTINUES SLEEPING ON GURNEY CALMLY, NAD/VSS, NO NEEDS AT THIS TIME, CALL LIGHT WITHIN REACH.
--- NOTE | 2020-10-27 12:49 | NUR ---
RELIEF RN: PT SLEEPING. RR EVEN NON LABORED. WILL CTM.
--- NOTE | 2020-10-27 13:00 | NUR ---
PT CALMLY SLEEPING ON GURNEY, NAD/VSS, NO NEEDS AT THIS TIME, CALL LIGHT WITHIN REACH.
--- NOTE | 2020-10-27 14:02 | NUR ---
PT CONTINUES TO CALMLY SLEEP ON GURNEY, NAD/VSS, NO NEEDS AT THIS TIME, CALL LIGHT WITHIN REACH.
--- NOTE | 2020-10-27 15:03 | NUR ---
PT CALMLY SLEEPING ON GURNEY, NAD/VSS, NO NEEDS AT THIS TIME, CALL LIGHT WITHIN REACH.
--- NOTE | 2020-10-27 16:05 | NUR ---
PT CONTINUES TO CALMLY SLEEP ON GURNEY, NAD/VSS, NO NEEDS AT THIS TIME, CALL LIGHT WITHIN REACH.
--- NOTE | 2020-10-27 16:15 | NUR ---
PT SLURRED NEED FOR URINAL, YELLING HE "NEEDED TO PEE"- BSU GIVEN, PT ABLE TO VOID & IMMED WENT BACK TO SLEEP.
--- NOTE | 2020-10-27 17:05 | NUR ---
Report received from ROBER Rushing. This RN to assume care. Patient sleeping in [facility]. Respirations even and unlabored.
--- NOTE | 2020-10-27 17:24 | NUR ---
REPORT GIVEN TO VIGNESH RICHTER
[2020-10-27] MEDS ORDERED: IBUPROFEN 200 MG TABLET ONE (18:37)
[2020-10-27 18:52] VITALS: BP 110/59
--- NOTE | 2020-10-27 18:53 | NUR ---
Patient ready for discharge. Transferred to personal wheelchair with no assistance. Belongings with patient.
[2020-10-27] MEDS ORDERED: IBUPROFEN 200 MG TABLET PO ONE (19:00)
== END 2020-10-27 18:54 | disposition home or self-care (01) ==
LOC: ED 10:51
DX: F10.220 Alcohol dependence with intoxication, uncomplicated (principal); T68.XXXA Hypothermia, initial encounter; J44.9 Chronic obstructive pulmonary disease, unspecified; X58.XXXA Exposure to other specified factors, initial encounter; Y90.9 Presence of alcohol in blood, level not specified
CPT/HCPCS: 99285

== ENCOUNTER 2020-10-30 15:02 | Emergency (ER) | payer MEDICARE, MEDICAID ==
[~2020-10-30] VITALS: Ht 177.8 cm; Wt 100.0 kg
[2020-10-30 15:06] VITALS: BP 120/76
--- NOTE | 2020-10-30 15:10 | NUR ---
MIRZA VILLASENOR FROM [facility]. THE BERNY AMBASSADORS DID NOT FEEL THE PATIENT COULD CARE OF SELF. PT DOES NOT WANT TO BE AT THE HOSPITAL. PT IS WHEELCHAIR BOUND. NO MEDICAL COMPLAINTS AT THIS TIME. PT IS BASELINE.
--- NOTE | 2020-10-30 16:26 | NUR ---
NO LABS NEEDED PER DR MONTOYA. PT REPORTS HE WANTS TO GO DOWNTOWN, PT REFUSES TO GO DOWNTOWN. PT IS A&O X4. PT GIVEN CLEAN CLOTHES AND A BED BATH. PT GIVEN FOOD AND CRACKERS. PT REPORTS HE WANTS TO BE DISCHARGED. DR MONTOYA AWARE.
--- NOTE | 2020-10-30 16:41 | NUR ---
PT REFUSES TO STAY. PT REPORTS HE IS HOMELESS AND HE DOES NOT WANT TO STAY IN THE HOSPITAL. PT WANTS A RIDE DOWNTOWN. PT GIVEN A TAXI VOUCHER.
--- NOTE | 2020-10-30 16:42 | NUR ---
DRAFTER SEISMOGRAPH IN ROOM
--- NOTE | 2020-10-30 16:43 | NUR ---
DR MONTOYA TALKING WITH PATIENT
--- NOTE | 2020-10-30 16:43 | NUR ---
PT WANTS TO BE DISCHARGED. PT DISCHARGED PER DR MONTOYA.
--- NOTE | 2020-10-30 17:00 | NUR ---
WHEELCHAIR CAB CALLED. PT WAITING FOR WHEELCHAIR CAB. TAXI REPORTS IT MIGHT BE AN HOUR. PT AWARE. PT WANTS TO WAIT OUTSIDE. VS STABLE. PT DISCHARGED PER DR MONTOYA.
== END 2020-10-30 17:04 | disposition home or self-care (01) ==
LOC: ED 15:32
DX: R62.7 Adult failure to thrive (principal); J44.9 Chronic obstructive pulmonary disease, unspecified; F17.200 Nicotine dependence, unspecified, uncomplicated; Z89.519 Acquired absence of unspecified leg below knee
CPT/HCPCS: 99283

== ENCOUNTER 2020-11-03 09:41 | Emergency (ER) | payer MEDICAID, MEDICARE ==
[~2020-11-03] VITALS: Ht 177.8 cm; Wt 75.7 kg
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
[2020-11-03] MEDS ORDERED: THIAMINE 100MG TABLET PO ONE (11:00)
[2020-11-03] MEDS ORDERED: THIAMINE 100MG TABLET ONE (11:13)
[2020-11-03 11:45] VITALS: BP 134/71
--- NOTE | 2020-11-03 12:08 | NUR ---
BREAK RN- PT RESTING IN BED.
--- NOTE | 2020-11-03 12:22 | NUR ---
break rn- meal provided
--- NOTE | 2020-11-03 13:58 | NUR ---
PT UP IN CHAIR, DRESSED WITH ASSIST, EATING LUNCH
--- NOTE | 2020-11-03 14:53 | NUR ---
Patient/Caregiver given discharge instructions and they have confirmed that they understand the instructions. Patient wc . NAD, all questions answered appropriately, denies additional needs at this time. No personal belongings left in room after discharge.
== END 2020-11-03 14:55 | disposition home or self-care (01) ==
LOC: ED 09:49
DX: F10.229 Alcohol dependence with intoxication, unspecified (principal); Z72.9 Problem related to lifestyle, unspecified; Z59.0 Homelessness; J44.9 Chronic obstructive pulmonary disease, unspecified; E03.9 Hypothyroidism, unspecified; Z89.512 Acquired absence of left leg below knee; Y90.0 Blood alcohol level of less than 20 mg/100 ml
CPT/HCPCS: 99283